=== PATIENT | female | born 1940 | race African-American/Black ===

== ENCOUNTER 2017-01-28 11:15 | Outpatient (CLI) | payer MEDICARE, MEDICAID ==
[~2017-01-28 11:15] MED LIST: ALBUTEROL SULF8.5 GM INH; AZITHROMYCIN250 MG ORAL; PREDNISONE20 MG ORAL; PROMETHAZINE-C118 M1 ORAL; TYLENOL EXTRA500 MG ORAL
[2017-01-28 11:41] LABS: BASOPHILS % (AUTO) 0.4 % (0.0-2.0); LYMPHOCYTES % (AUTO) 42.5 % (20.0-45.0); MEAN CORPUSCULAR HEMOGLOBIN 28.9 PG (27.0-31.0); MEAN CORPUSCULAR HGB CONC 30.1 G/DL (32.0-36.0); MEAN CORPUSCULAR VOLUME 96 FL (80-99); MEAN PLATELET VOLUME 6.9 FL (6.5-10.1); MONOCYTES % (AUTO) 10.2 % (1.0-10.0); NEUTROPHILS % (AUTO) 44.9 % (45.0-75.0); PLATELET COUNT 178 K/UL (150-450); RED BLOOD COUNT 4.34 M/UL (4.20-5.40); RED CELL DISTRIBUTION WIDTH 14.2 % (11.6-14.8); WHITE BLOOD COUNT 4.3 K/UL (4.8-10.8)
[2017-01-28 12:01] LABS: INR 0.9 (0.9-1.1); PROTHROMBIN TIME 9.8 SEC (9.30-11.50)
[2017-01-28 12:07] LABS: ALANINE AMINOTRANSFERASE 62 U/L (12-78); ALBUMIN/GLOBULIN RATIO 0.7 (1.0-2.7); ANION GAP 8 mmol/L (5-15); ASPARTATE AMINO TRANSFERASE 47 U/L (15-37); CALCIUM 8.7 MG/DL (8.5-10.1); CARBON DIOXIDE 30 MMOL/L (21-32); CHLORIDE 106 MMOL/L (98-107); CREATININE 1.1 MG/DL (0.55-1.30); POTASSIUM 4.1 MMOL/L (3.5-5.1); SODIUM 144 MMOL/L (136-145); TOTAL PROTEIN 8.1 G/DL (6.4-8.2)
== END 2017-01-28 13:15 | disposition home or self-care (01) ==
LOC: LAB 11:15
DX: I11.9 Hypertensive heart disease without heart failure (principal); J44.9 Chronic obstructive pulmonary disease, unspecified
CPT/HCPCS: 36415; 80053; 85025; 85610; 85730

== ENCOUNTER 2018-04-04 16:32 | Inpatient (IN) | payer MEDICARE, MEDICAID ==
[~2018-04-04] VITALS: Ht 165.1 cm; Wt 56.7 kg
[2018-04-04 16:52] VITALS: BP 180/94
--- NOTE | 2018-04-04 16:52 | NUR ---
ED Nurse Note: Pt came in due to localized, left side CP and SOB x 2 days. Pt states its painful when she breathes. Pt has hx of COPD and is not compliant with her medications. Pt is AAO x4, ambulatory with SOB at rest. Sats 99 % in room air. Lunsg are tight upon auscultation.
--- NOTE | 2018-04-04 17:00 | NUR ---
ED Nurse Note: Daughter at the bed side.
[2018-04-04] MEDS ORDERED: Solu-MEDROL 125mg Inj IVP ONE (17:15)
[2018-04-04] MEDS ORDERED: Albuterol ud Inhalation HHN ONE ×2 (17:15→20:00)
[2018-04-04] MEDS ORDERED: Ipratropium 0.02% Inh Soln 2.5ml UD HHN ONE ×2 (17:15→20:00)
--- NOTE | 2018-04-04 17:15 | NUR ---
ED Nurse Note: Blood collected and sent.
[2018-04-04 17:27] LABS: BASOPHILS % (AUTO) 0.6 % (0.0-2.0); EOSINOPHILS % (AUTO) 1.1 % (0.0-3.0); HEMATOCRIT 42.4 % (37.0-47.0); HEMOGLOBIN 13.3 G/DL (12.0-16.0); LYMPHOCYTES % (AUTO) 38.5 % (20.0-45.0); MEAN CORPUSCULAR VOLUME 93 FL (80-99); MONOCYTES % (AUTO) 14.8 % (1.0-10.0); NEUTROPHILS % (AUTO) 44.9 % (45.0-75.0); PLATELET COUNT 191 K/UL (150-450); RED BLOOD COUNT 4.58 M/UL (4.20-5.40); RED CELL DISTRIBUTION WIDTH 14.5 % (11.6-14.8); WHITE BLOOD COUNT 4.5 K/UL (4.8-10.8)
--- NOTE | 2018-04-04 17:27 | NUR ---
ED Nurse Note: Radiologist at the bed side for CXR.
--- NOTE | 2018-04-04 17:37 | NUR ---
ED Nurse Note: RT at the bed side for breathing treatment.
[2018-04-04 17:58] LABS: APPEARANCE,URINE CLEAR; BILIRUBIN, URINE NEGATIVE (NEGATIVE); GLUCOSE, URINE (UA) NEGATIVE (NEGATIVE); KETONES,URINE NEGATIVE (NEGATIVE); LEUKOCYTE ESTERASE ,URINE NEGATIVE (NEGATIVE); NITRITE,URINE NEGATIVE (NEGATIVE); PH,URINE 7 (4.5-8.0); PROTEIN,URINE 2+ (NEGATIVE); UROBILINOGEN,URINE NORMAL MG/DL (0.0-1.0)
[2018-04-04 17:59] LABS: COLOR,URINE YELLOW
[2018-04-04 18:03] LABS: ANION GAP 10 mmol/L (5-15); BLOOD UREA NITROGEN 14 mg/dL (7-18); CALCIUM 9.7 MG/DL (8.5-10.1); CARBON DIOXIDE 29 MMOL/L (21-32); CHLORIDE 106 MMOL/L (98-107); CREATININE 0.9 MG/DL (0.55-1.30); POTASSIUM 3.8 MMOL/L (3.5-5.1); SODIUM 145 MMOL/L (136-145)
--- NOTE | 2018-04-04 18:05 | Diagnostic Imaging Report ---
EXAM: XR Chest, 1 View CLINICAL HISTORY: SOB TECHNIQUE: Frontal view of the chest. COMPARISON: No relevant prior studies available. FINDINGS: Lungs: Mild right basilar atelectasis. Pleural space: Unremarkable. No pneumothorax. Heart: Large cardiomediastinal silhouette. Mediastinum: See above. Bones/joints: Hardware in the spine. Vasculature: Large aortic knob. IMPRESSION: Mild right basilar atelectasis.
[2018-04-04 18:17] LABS: ALANINE AMINOTRANSFERASE 75 U/L (12-78); ALBUMIN 3.5 G/DL (3.4-5.0); ALBUMIN/GLOBULIN RATIO 0.8 (1.0-2.7); ALKALINE PHOSPHATASE 277 U/L (46-116); ASPARTATE AMINO TRANSFERASE 50 U/L (15-37); BILIRUBIN,TOTAL 0.4 MG/DL (0.2-1.0); CKMB 0.9 NG/ML (0.0-3.6); CREATINE KINASE 135 U/L (26-308)
--- NOTE | 2018-04-04 18:35 | NUR ---
ED Nurse Note: Dr Melo at the bed side.
[2018-04-04 18:58] VITALS: BP 144/68
--- NOTE | 2018-04-04 18:59 | NUR ---
ED Nurse Note: Sunray and juice provided to pt. Dr Lorie brewer with pt to eat.
[2018-04-04] MEDS ORDERED: Morphine Sulfate 4mg/ml Inj (IV/IM USE ONLY) IVP ONE (19:00)
--- NOTE | 2018-04-04 19:15 | NUR ---
HAND-OFF: Report given to Jessy RUSHING.
--- NOTE | 2018-04-04 19:30 | NUR ---
ED Nurse Note: RECIEVED REPORT FROM AM NURSE TO RESUME CARE, PT IN BED RESTING QUIETLY, PT IS AWAKE, ALERT AND ORIENTED X 4, ON CARDIAC MONITORING, IV SITE PATENT, PT HAS MILD CP AT 2/10 WHEN AMBULATING OR DEEP BREATHING, DENIES NOW, PT WAITING FOR HOSPITAL BED FOR ADMISSION, WILL RESUME CARE ORDERED AND CONTINUE TO CLOSELY MONITOR AND PREPARE FOR ADMIT WHEN BED AVAILABLE.
--- NOTE | 2018-04-04 19:44 | Emergency Room Report ---
History of Present Illness General Chief Complaint: Chest Pain Source: Patient, Medical Record Present Illness HPI 77-year-old female presents ED for evaluation. Complaining of chest pain 2 days. Sharp, left-sided, nonradiating. Worse with deep breaths. Denies any cough fevers chills. States there was some leg swelling initially but not at this time. States increased urination. Denies dysuria. Denies fevers or chills. Denies cough. Notes history of asthma. No other aggravating relieving factors. Denies any other associated symptoms Allergies: Coded Allergies: SETH INHIBITORS (Verified Allergy, Unknown, 03/04/16) Patient History Past Medical History: HTN, asthma Past Surgical History: none Pertinent Family History: none Social History: Denies: smoking, alcohol use, drug use Now: No Immunizations: UTD Reviewed Nursing Documentation: PMH: Agreed; PSxH: Agreed Nursing Documentation-PMH Hx Hypertension: Yes Hx Asthma: Yes Review of Systems All Other Systems: negative except mentioned in HPI Physical Exam Vital Signs Date Time Temp Pulse Resp B/P (MAP) Pulse Ox O2 Delivery O2 Flow Rate FiO2 04/04/18 16:42 98.2 56 18 180/94 93 Room Air 04/04/18 17:36 21 Sp02 EP Interpretation: reviewed, normal General Appearance: no apparent distress, alert, GCS 15, non-toxic Head: normocephalic, atraumatic Eyes: bilateral eye normal inspection, bilateral eye PERRL ENT: hearing grossly normal, normal pharynx, no angioedema, normal voice Neck: full range of motion, supple/symm/no masses Respiratory: decreased breath sounds, speaking full sentences, other - reproducible L anterior chest wall pain Cardiovascular #1: regular rate, rhythm, no edema Cardiovascular #2: 2+ carotid (R), 2+ carotid (L), 2+ radial (R), 2+ radial (L) , 2+ dorsalis pedis (R), 2+ dorsalis pedis (L) Gastrointestinal: normal bowel sounds, non tender, soft, non-distended, no guarding, no rebound Rectal: deferred Genitourinary: normal inspection, no CVA tenderness Musculoskeletal: back normal, gait/station normal, normal range of motion, non- tender Neurologic: alert, oriented x3, responsive, motor strength/tone normal, sensory intact, speech normal Psychiatric: judgement/insight normal, memory normal, mood/affect normal, no suicidal/homicidal ideation Reflexes: 3+ bicep (R), 3+ bicep (L), 3+ tricep (R), 3+ tricep (L), 3+ knee (R) , 3+ knee (L) Skin: normal color, no rash, warm/dry, well hydrated Lymphatic: no adenopathy Medical Decision Making Diagnostic Impression: Primary Impression: ACS (acute coronary syndrome) Additional Impression: COPD (chronic obstructive pulmonary disease) Qualified Codes: J44.9 - Chronic obstructive pulmonary disease, unspecified ER Course Hospital Course 77-year-old F presenting to ED with SOB + CP. h/o COPD Differential diagnoses include: Pneumonia, CHF exacerbation, pneumothorax, fluid overload Clinical course Patient placed on stretcher. On equipment monitor phototypesetting with stable vitals. After initial history and physical, I ordered nebulizer treatments. I ordered labs, IV fluids, EKG, chest x-ray, blood cultures, UA. Labs - no leukocytosis noted, hemoglobin/hematocrit stable, electrolytes okay, troponins negative CXR - some atelectasis in lower R lung base EKG - NSR, no acute ischemic changes interpreted by me States she is still having chest pain and shortness of breath. Consideration for muscular chest pain however given age and risk factors will admit for serial troponins Given antibiotics. given aspirin. Case discussed with Dr. Hassan and he agreed to the patient to his service for further care and support I feel this is a highly complex case requiring extensive working including EKG/ Rhythm strip, Xray/CT/US, Blood/urine lab work, repeat exams while in ED, and administration of strong opiates/narcotics for pain control, admission to hospital or close patient follow up. Diagnosis - COPD, ACS Patient admitted to telemetry in serious condition Labs Test 04/04/18 17:05 04/04/18 17:24 White Blood Count 4.5 K/UL (4.8-10.8) Red Blood Count 4.58 M/UL (4.20-5.40) Hemoglobin 13.3 G/DL (12.0-16.0) Hematocrit 42.4 % (37.0-47.0) Mean Corpuscular Volume 93 FL (80-99) Mean Corpuscular Hemoglobin 29.1 PG (27.0-31.0) Mean Corpuscular Hemoglobin Concent 31.5 G/DL (32.0-36.0) Red Cell Distribution Width 14.5 % (11.6-14.8) Platelet Count 191 K/UL (150-450) Mean Platelet Volume 7.2 FL (6.5-10.1) Neutrophils (%) (Auto) 44.9 % (45.0-75.0) Lymphocytes (%) (Auto) 38.5 % (20.0-45.0) Monocytes (%) (Auto) 14.8 % (1.0-10.0) Eosinophils (%) (Auto) 1.1 % (0.0-3.0) Basophils (%) (Auto) 0.6 % (0.0-2.0) Sodium Level 145 MMOL/L (136-145) Potassium Level 3.8 MMOL/L (3.5-5.1) Chloride Level 106 MMOL/L (98-107) Carbon Dioxide Level 29 MMOL/L (21-32) Anion Gap 10 mmol/L (5-15) Blood Urea Nitrogen 14 mg/dL (7-18) Creatinine 0.9 MG/DL (0.55-1.30) Estimat Glomerular Filtration Rate mL/min (>60) Glucose Level 89 MG/DL (74-106) Calcium Level 9.7 MG/DL (8.5-10.1) Total Bilirubin 0.4 MG/DL (0.2-1.0) Aspartate Amino Transf (AST/SGOT) 50 U/L (15-37) Alanine Aminotransferase (ALT/SGPT) 75 U/L (12-78) Alkaline Phosphatase 277 U/L (46-116) Total Creatine Kinase 135 U/L (26-308) Creatine Kinase MB 0.9 NG/ML (0.0-3.6) Creatine Kinase MB Relative Index 0.6 Troponin I 0.011 ng/mL (0.000-0.056) Pro-B-Type Natriuretic Peptide 764 pg/mL (0-125) Total Protein 8.1 G/DL (6.4-8.2) Albumin 3.5 G/DL (3.4-5.0) Globulin 4.6 g/dL Albumin/Globulin Ratio 0.8 (1.0-2.7) Urine Color Yellow Urine Appearance Clear Urine pH 7 (4.5-8.0) Urine Specific [place] 1.010 (1.005-1.035) Urine Protein 2+ (NEGATIVE) Urine Glucose (UA) Negative (NEGATIVE) Urine Ketones Negative (NEGATIVE) Urine Blood Negative (NEGATIVE) Urine Nitrite Negative (NEGATIVE) Urine Bilirubin Negative (NEGATIVE) Urine Urobilinogen Normal MG/DL (0.0-1.0) Urine Leukocyte Esterase Negative (NEGATIVE) Urine RBC 0-2 /HPF (0 - 2) Urine WBC 0-2 /HPF (0 - 2) Urine Squamous Epithelial Cells Few /LPF (NONE/OCC) Urine Amorphous Sediment Few /LPF (NONE) Urine Bacteria Few /HPF (NONE) EKG Diagnostic Results Rate: normal Rhythm: NSR ST Segments: no acute changes ASA given to the pt in ED: No Rhythm Strip Diag. Results EP Interpretation: yes Rhythm: NSR, no PVC's, no ectopy Chest X-Ray Diagnostic Results Chest X-Ray Diagnostic Results : Chest X-Ray Ordered: Yes # of Views/Limited/Complete: 1 View Indication: Chest Pain EP Interpretation: Yes Interpretation: no effusion, no pneumothorax, other - R basilar atelectasis Impression: Other - R basilar atelectasis Electronically Signed by: Electronically signed by Yasir Melo MD Last Vital Signs Date Time Temp Pulse Resp B/P (MAP) Pulse Ox O2 Delivery O2 Flow Rate FiO2 04/04/18 18:58 98.6 81 25 144/68 97 Room Air 04/04/18 17:56 21 Status: improved Disposition: ADMITTED INPATIENT Condition: Serious Referrals: NOT CHOSEN IPA/,REFERRING (PCP) Yasir Melo MD Apr 04, 2018 19:44
[2018-04-04 20:15] VITALS: BP 141/57
[2018-04-04] MEDS ORDERED: Albuterol/Ipratropium 3ml neb HHN PRN (20:15)
[2018-04-04] MEDS ORDERED: Milk of Magnesia 30ml Ud ORAL PRN (20:15)
[2018-04-04] MEDS ORDERED: Promethazine/Codeine 5ml UD ORAL PRN (20:15)
[2018-04-04 21:00] VITALS: BP 144/73
--- NOTE | 2018-04-04 21:35 | NUR ---
ED Nurse Note: PT HAS ROOM FOR ADMISSION, REPORT CALLED TO FLOOR NURSE СЕРГЕЙ GAN ON UNIT, PT TAKEN TO FLOOR VIA GURNEY AND ACLS PROTOCOLS, PT BELONGINGS LIST COMPLETED, IV SITE PATENT, ANTIBIOTIC COMPLETED, NO S/S OF ADVERSE REACTION NOTED, NAD NOTED DURING PT TRANSPORT TO FLOOR.
[2018-04-04 21:40] VITALS: BP 151/74
--- NOTE | 2018-04-04 21:40 | NUR ---
NURSE NOTES: Received pt. from ED via kaveh. Pt. transferred to bed without any incident. Received report from СЕРГЕЙ Molina. Pt. is A/O x4. [place] pt. to unit, room, and hospital policies. cryptological technician is placed, IV site intact, asymptomatic, and patent. Skin is intact; no apparent wounds. Bed is in the lowest position and locked, call light within reach. No chest pain, SOB or acute distress noted at this time. Received admission orders from Dr. Hassan. Will carry out.
[2018-04-04] MEDS: Solu-MEDROL 40mg Inj IVP SCH (22:15)
[2018-04-04] MEDS: cefTRIAXone 1 GM in D5W 55 ML IVPB SCH (22:15)
[2018-04-04] MEDS: Heparin 5000 units/ml inj SUBQ SCH (22:17)
[2018-04-04] MEDS: Acetaminophen 500mg (ES) tab ORAL PRN (23:41)
[2018-04-05] VITALS (7 sets, daily range): BP systolic 111–172; BP diastolic 81–98
[2018-04-05] MEDS: Solu-MEDROL 40mg Inj IVP SCH (05:33)
[2018-04-05] MEDS: Acetaminophen 500mg (ES) tab ORAL PRN ×2 (07:01→14:46)
--- NOTE | 2018-04-05 07:12 | NUR ---
NURSE NOTES: Received report from СЕРГЕЙ Rodriguez. Patient is in stable condition. No acute distress/SOB. Patient denies any pain/discomfort. Will continue plan of care.
--- NOTE | 2018-04-05 07:46 | NUR ---
HAND-OFF: Report given to СЕРГЕЙ Michael.
[2018-04-05] MEDS: cefTRIAXone 1 GM in D5W 55 ML IVPB SCH (08:48)
[2018-04-05] MEDS: Azithromycin 250mg tab ORAL SCH (08:49)
[2018-04-05] MEDS: Heparin 5000 units/ml inj SUBQ SCH ×2 (08:49→21:03)
[2018-04-05] MEDS ORDERED: OXTELLAR XR150 MG ORAL (09:15)
[2018-04-05] MEDS ORDERED: VENTOLIN HFA18 GM INH (09:15)
[2018-04-05] MEDS ORDERED: DELTASONE20 MG PO (09:15)
[2018-04-05] MEDS ORDERED: NORVASC10 MG ORAL (09:15)
[2018-04-05] MEDS ORDERED: OMEPRAZOLE20 M2 ORAL (09:15)
[2018-04-05] MEDS ORDERED: ZANAFLEX4 M1 ORAL (09:15)
--- NOTE | 2018-04-05 10:00 | History and Physical Report ---
DATE OF ADMISSION: 04/04/2018 CHIEF COMPLAINT: COPD exacerbation and chest pain. HISTORY OF PRESENT ILLNESS: The patient is a 77-year-old female. She has a history of hypertensive heart disease. She has a 21-mcpl-cekq history of smoking and she presented with complaints of shortness of breath, cough, and chest pain. According to the patient, she was well until one to two days prior to admission when she developed some wheezing, shortness of breath, cough, and chest pain. Chest pain was mostly with inspiration. Denies any fevers or chills. She had no phlegm. On evaluation in the emergency room, she was diagnosed with COPD exacerbation. She was given a dose of steroids. She is now admitted for further evaluation and care. PAST MEDICAL HISTORY: As above. PAST SURGICAL HISTORY: Includes hip surgery. CURRENT MEDICATIONS: Reconciled and reviewed. ALLERGIES: Include SETH inhibitors. FAMILY HISTORY: Noncontributory. SOCIAL HISTORY: Significant for 36-gamo-skld history of smoking. The patient states she quit earlier this month. REVIEW OF SYSTEMS: GENERAL: No fevers or chills. HEENT: No headache or visual changes. CARDIOPULMONARY: Positive chest pain. Positive shortness of breath and wheezing. GASTROINTESTINAL: No nausea or vomiting. GENITOURINARY: No urgency or frequency. MUSCULOSKELETAL: No joint pain or swelling. NEUROLOGIC: No evidence of seizures. PHYSICAL EXAMINATION: VITAL SIGNS: Temperature 98 degrees, pulse 58, respirations 20, and blood pressure 151/84. GENERAL: The patient is well developed, in no apparent distress. HEART: Regular rate and rhythm. LUNGS: Significant for scattered wheezes. ABDOMEN: Soft, nontender, and nondistended. EXTREMITIES: Without clubbing, cyanosis, or edema. LABORATORY AND IMAGING DATA: UA was clear. White count 4 and hemoglobin 13. Sodium 145 and potassium 3.8. Troponin was 0.011. X-ray showed right basal atelectasis. ASSESSMENT: This is a pleasant female with complaints of shortness of breath and chest pain suspect secondary to chronic obstructive pulmonary disease exacerbation. PROBLEMS LIST: 1. COPD exacerbation. 2. Likely noncardiac chest pain. 3. History of hypertension. PLAN: 1. Intravenous steroids. 2. Respiratory treatments. 3. Pulmonary consultation. 4. Antibiotics for bronchitis. 5. Check venous duplex. 6. DVT stress and ulcer prophylaxis. Ej Hassan M.D. DR: TAMIR JOB#: [id number] CC:
--- NOTE | 2018-04-05 11:08 | Cardiology Report ---
APPROVED REPORT EKG Measurement Heart [id number] Sinus bradycardia Possible Anterior infarct, age undetermined Abnormal ECG
[2018-04-05] MEDS ORDERED: Albuterol/Ipratropium 3ml neb HHN PRN (11:15)
--- NOTE | 2018-04-05 12:44 | NUR ---
NURSE NOTES: Notified Dr. Hassan that pt's BP. New order carried out.
[2018-04-05] MEDS: HydrALAZINE 50mg tab ORAL SCH ×2 (13:09→22:00)
--- NOTE | 2018-04-05 15:02 | NUR ---
NURSE NOTES: Patient still complains of headache 09/16. Notified Dr. ledezma pain med order carried out. Will continue plan of care.
[2018-04-05] MEDS ORDERED: HYDROcodone/Acetamin 10/325 tab ORAL PRN (15:15)
--- NOTE | 2018-04-05 15:34 | NUR ---
CASE MANAGEMENT: REVIEW 77/F PRESENTED TO ED FROM HOME CC: CHEST PAIN X2 DAYS SI: DYSPNEA . CHEST PAIN . COPD EXACERBATION T 98.2 HR 51 RR 25 BP 180/94 SAT 93% ROOM AIR TROPONIN I 0.011 BNP 764 IS: SOLU MEDROL IV X1 ATROVENT HHN X1 ALBUTEROL HHN X1 MORPHINE IV X1 ASA PO X1 INTERQUAL CRITERIA MET: PATIENT ADMITTED TO TELEMETRY UNIT 04/04/2018 DCP: PATIENT IS FROM HOME
--- NOTE | 2018-04-05 17:39 | NUR ---
NURSE NOTES: Patient still complains of headache 09/16. Notified Dr. Person order carried out. Will continue plan of care.
--- NOTE | 2018-04-05 19:29 | NUR ---
HAND-OFF: Report given to СЕРГЕЙ Kimble. Patient is in stable condition. No acute distress/SOB noted. Patient denies any pain/discomfort. Endorsed plan of care.
--- NOTE | 2018-04-05 20:11 | NUR ---
NURSE NOTES: recvd pt. Pt is laying in bed comfortably. Pt states headache has resolved so denies pain. No c/o dyspnea or chest pain. Pt is AOX4. Pt is on room air with no sign of sob or resp distress. BLE are swollen, elevated on pillows. IV site is c/d/i and saline locked. Bed alarm is on, will continue with plan of care.
[2018-04-05] MEDS ORDERED: Solu-MEDROL 40mg Inj IVP SCH (21:00)
[2018-04-06] VITALS: BP 151/75
[2018-04-06 04:00] VITALS: BP 136/70
[2018-04-06] MEDS: HydrALAZINE 50mg tab ORAL SCH ×3 (05:41→22:35)
--- NOTE | 2018-04-06 07:35 | NUR ---
NURSE NOTES: Received report from Shyanne RUSHING. Pt is awake, alert, oriented x4. On room air with no respiratory distress. Reports relief of headache after being given Percocet. IV access on left AC #20G, saline lock, patent/intact. Bedside commode setup. Skin is intact. Call light is within easy reach, bed in lowest position, two side rails up, brakes engaged.
--- NOTE | 2018-04-06 07:56 | General Progress Note ---
Assessment/Plan Problem List: (1) Acute bronchitis ICD Codes: J20.9 - Acute bronchitis,unspecified SNOMED: 36598134 (2) Angioedema ICD Codes: T78.3XXA - Angioneurotic edema, initial encounter SNOMED: 83310463 (3) COPD (chronic obstructive pulmonary disease) ICD Codes: J44.9 - Chronic obstructive pulmonary disease, unspecified SNOMED: 61421757 Qualifiers: Qualified Codes: J44.9 - Chronic obstructive pulmonary disease, unspecified (4) ACS (acute coronary syndrome) ICD Codes: I24.9 - Acute ischemic heart disease, unspecified SNOMED: 560894042 Status: stable, progressing Assessment/Plan decreased steroids resp rx iv abx mobilize pain rx dc planning tomorrow Subjective ROS Limited/Unobtainable: No Constitutional: Reports: malaise, weakness HEENT: Reports: no symptoms Cardiovascular: Reports: no symptoms Respiratory: Reports: cough, shortness of breath Gastrointestinal/Abdominal: Reports: no symptoms Genitourinary: Reports: no symptoms Neurologic/Psychiatric: Reports: no symptoms Endocrine: Reports: no symptoms Hematologic/Lymphatic: Reports: no symptoms Allergies: Coded Allergies: SETH INHIBITORS (Verified Allergy, Unknown, 03/04/16) All Systems: reviewed and negative except above Subjective c/o headaches.relieved with percocet. no fever or chills. decreased sob Objective Last 24 Hour Vital Signs Date Time Temp Pulse Resp B/P (MAP) Pulse Ox O2 Delivery O2 Flow Rate FiO2 04/06/18 05:41 136/70 04/06/18 05:13 98.3 04/06/18 04:00 98.5 53 18 136/70 (92) 96 04/06/18 04:00 50 04/06/18 00:00 98.3 53 18 151/75 (100) 98 04/06/18 00:00 51 04/05/18 22:02 99.1 04/05/18 21:00 Room Air 04/05/18 20:00 73 04/05/18 20:00 99.1 66 19 111/81 (91) 96 04/05/18 16:00 98.3 70 18 154/98 (116) 97 04/05/18 16:00 107 04/05/18 14:45 98.6 72 18 142/81 (101) 97 04/05/18 13:09 150/65 04/05/18 12:13 59 20 98 Room Air 21 04/05/18 12:00 98.6 55 18 172/91 (118) 97 04/05/18 12:00 56 04/05/18 09:44 54 169/97 04/05/18 09:00 Room Air 04/05/18 08:00 98.1 54 18 169/97 (121) 95 04/05/18 08:00 54 Intake and Output 04/05/18 04/06/18 19:00 07:00 Intake Total 360 ml 120 ml Balance 360 ml 120 ml Intake Oral 360 ml Other 120 ml # Voids 2 1 # Bowel Movements 1 1 Height (Feet): 5 Height (Inches): 5.00 Weight (Pounds): 125 General Appearance: WD/WN, alert Neck: supple, normal inspection Cardiovascular: normal peripheral pulses, normal rate, regular rhythm Respiratory/Chest: chest wall non-tender, lungs clear, normal breath sounds, no respiratory distress Abdomen: normal bowel sounds, non tender, soft, no organomegaly Edema: no edema noted Arm (L), no edema noted Arm (R), no edema noted Leg (L), no edema noted Leg (R), no edema noted Pedal (L), no edema noted Pedal (R), no edema noted Generalized Ej Hassan MD Apr 06, 2018 07:56
[2018-04-06 08:00] VITALS: BP 137/72
[2018-04-06] MEDS: Azithromycin 250mg tab ORAL SCH (08:31)
[2018-04-06] MEDS: Solu-MEDROL 40mg Inj IVP SCH (08:31)
[2018-04-06] MEDS: Heparin 5000 units/ml inj SUBQ SCH ×2 (08:34→20:30)
[2018-04-06] MEDS: cefTRIAXone 1 GM in D5W 55 ML IVPB SCH (08:36)
[2018-04-06 12:00] VITALS: BP 139/88
--- NOTE | 2018-04-06 14:12 | Diagnostic Imaging Report ---
APPROVED REPORT CPT Code: 18987 Present Symptoms Comments: Chest pain BILATERAL: Imaging reveals a patent deep venous system bilaterally. There is no evidence of thrombus within the femoral, popliteal or tibial segments. The greater saphenous veins are also within normal limits. Doppler indicates normal spontaneous flow within these segments.
[2018-04-06 16:00] VITALS: BP 134/76
--- NOTE | 2018-04-06 19:15 | NUR ---
HAND-OFF: Report given to Shyanne RUSHING. Pt is resting in bed in stable condition. Endorsed plan of care.
[2018-04-06 20:00] VITALS: BP 124/81
--- NOTE | 2018-04-06 20:16 | NUR ---
NURSE NOTES: recvd pt. Pt is awake and lying in bed AOX4. Pt states headache has resolved so denies pain. No c/o dyspnea or chest pain. Pt is on room air with no sign of sob or resp distress.. IV site is c/d/i and saline locked. Bed alarm is on, will continue with plan of care.
[2018-04-07] VITALS: BP 125/77
--- NOTE | 2018-04-07 02:15 | Consultation ---
DATE OF CONSULTATION: 04/06/2018 CARDIOLOGY CONSULTATION CONSULTING PHYSICIAN: Moe Leblanc M.D. REQUESTING PHYSICIAN: Ej Hassan M.D. REASON FOR CONSULTATION: Chest pain in the setting of bronchospastic lung disease. HISTORY OF PRESENT ILLNESS: This 77-year-old female has a history of hypertensive heart disease and COPD with heavy active smoking history. She presented to the hospital yesterday with chest pain, cough, and congestion of two days duration. She had active wheezing. She noted her pain associated with cough and inspiration. The patient has been started on intravenous steroids and inhaled bronchodilators with some improvement over the past day. Her chest pain symptoms have not changed. Her initial troponin was 0.011. PAST MEDICAL HISTORY: Osteoporosis, osteoarthritis, prior hip surgery, hypertension, and COPD. ALLERGIES: Include SETH inhibitors. FAMILY HISTORY: Noncontributory. SOCIAL HISTORY: No alcohol or substance abuse. A 60+ pack year smoker, actively at this time although she notes that she has not really smoked this month. REVIEW OF SYSTEMS: Her outpatient echocardiogram revealed normal ejection fraction with minimally elevated PA systolic pressures. There is no history of flow-limiting coronary artery disease in the past. There is no history of atrial arrhythmias. She does have a history of sinus bradycardia, it has been asymptomatic. There is no history of blood clots in the legs, diabetes, or thyroid disorder. PHYSICAL EXAMINATION: VITAL SIGNS: T-max 99.8, blood pressure 124/81, heart rate 75, respiratory rate 20, and oxygen saturation 95% on room air. HEENT: Conjunctivae pink. Oropharynx clear. No thrush. NECK: Supple. LUNGS: Diminished breath sounds. No wheezing. Few rhonchi. HEART: Regular rhythm. Slow rate. Normal S1 and S2. ABDOMEN: Soft. EXTREMITIES: No edema. NEUROLOGIC: Nonfocal. LABORATORY DATA: EKG sinus bradycardia, no acute ST-T wave abnormalities. Chest x-ray with right atelectasis, no acute process in her single-view film. IMPRESSION: 1. Chest pain appears pleuritic. 2. COPD exacerbation, improving. 3. Acute bronchitis. 4. Atelectasis. 5. Possible pneumonia. 6. History of hypertension. 7. Asymptomatic sinus bradycardia. PLAN: Recheck labs, chest x-ray, steroid taper, bronchodilators, and long-term anti-platelet therapy. Moe Leblanc M.D. DR: KAMALA JOB#: [id number] CC:
[2018-04-07 04:00] VITALS: BP 120/72
[2018-04-07] MEDS: HydrALAZINE 50mg tab ORAL SCH ×3 (06:00→21:32)
--- NOTE | 2018-04-07 07:10 | NUR ---
NURSE NOTES: Received report from Shyanne RUSHING. Pt is awake, alert, oriented x4, laying in bed, watching TV. Denies pain, on room air with no respiratory distress. IV access on left AC #20G, saline lock, patent/intact. Skin is intact. Pt is ambulatory with steady gait. Call light is placed within easy reach, bed in lowest position, two side rails up, brakes engaged. Labs pending for this morning, chest xray to be done today. Will continue with plan of care per MD orders and protocol.
[2018-04-07 08:00] VITALS: BP_SYST 130; BP_SYST 146; BP_DIAS 71; BP_DIAS 78
[2018-04-07 08:34] LABS: BASOPHILS % (AUTO) 0.5 % (0.0-2.0); EOSINOPHILS % (AUTO) 0.1 % (0.0-3.0); HEMATOCRIT 45.9 % (37.0-47.0); HEMOGLOBIN 14.4 G/DL (12.0-16.0); LYMPHOCYTES % (AUTO) 41.3 % (20.0-45.0); MEAN CORPUSCULAR VOLUME 93 FL (80-99); MONOCYTES % (AUTO) 6.1 % (1.0-10.0); NEUTROPHILS % (AUTO) 52.1 % (45.0-75.0); PLATELET COUNT 235 K/UL (150-450); RED BLOOD COUNT 4.95 M/UL (4.20-5.40); RED CELL DISTRIBUTION WIDTH 15.3 % (11.6-14.8)
[2018-04-07] MEDS: Aspirin EC 81mg tab ORAL SCH (08:52)
[2018-04-07] MEDS: Solu-MEDROL 40mg Inj IVP SCH (08:52)
[2018-04-07] MEDS: Azithromycin 250mg tab ORAL SCH (08:52)
[2018-04-07] MEDS: Heparin 5000 units/ml inj SUBQ SCH ×2 (08:55→21:36)
[2018-04-07] MEDS: cefTRIAXone 1 GM in D5W 55 ML IVPB SCH (08:56)
[2018-04-07 09:31] LABS: ALANINE AMINOTRANSFERASE 44 U/L (12-78); ALBUMIN 3.6 G/DL (3.4-5.0); ALBUMIN/GLOBULIN RATIO 0.8 (1.0-2.7); ALKALINE PHOSPHATASE 217 U/L (46-116); ANION GAP 7 mmol/L (5-15); ASPARTATE AMINO TRANSFERASE 20 U/L (15-37); BILIRUBIN,TOTAL 0.5 MG/DL (0.2-1.0); BLOOD UREA NITROGEN 28 mg/dL (7-18); CALCIUM 10.1 MG/DL (8.5-10.1); CARBON DIOXIDE 31 MMOL/L (21-32); CHLORIDE 106 MMOL/L (98-107); CREATININE 1.2 MG/DL (0.55-1.30); POTASSIUM 4.4 MMOL/L (3.5-5.1); SODIUM 144 MMOL/L (136-145)
--- NOTE | 2018-04-07 10:11 | General Progress Note ---
Assessment/Plan Problem List: (1) Acute bronchitis ICD Codes: J20.9 - Acute bronchitis,unspecified SNOMED: 81984967 (2) Angioedema ICD Codes: T78.3XXA - Angioneurotic edema, initial encounter SNOMED: 48651143 (3) COPD (chronic obstructive pulmonary disease) ICD Codes: J44.9 - Chronic obstructive pulmonary disease, unspecified SNOMED: 15491216 Qualifiers: Qualified Codes: J44.9 - Chronic obstructive pulmonary disease, unspecified (4) ACS (acute coronary syndrome) ICD Codes: I24.9 - Acute ischemic heart disease, unspecified SNOMED: 735777486 Status: stable Assessment/Plan decreased steroids resp rx iv abx mobilize pain rx antiplt rx cards follow up dc planning if ok with cards Subjective ROS Limited/Unobtainable: No Constitutional: Reports: malaise, weakness HEENT: Reports: no symptoms Cardiovascular: Reports: chest pain Respiratory: Reports: cough Gastrointestinal/Abdominal: Reports: no symptoms Genitourinary: Reports: no symptoms Neurologic/Psychiatric: Reports: no symptoms Endocrine: Reports: no symptoms Hematologic/Lymphatic: Reports: no symptoms Allergies: Coded Allergies: SETH INHIBITORS (Verified Allergy, Unknown, 03/04/16) All Systems: reviewed and negative except above Subjective no new complaints. sob/chest pain better. no fevers or chills. no cough echo noted- ?anterior mi Objective Last 24 Hour Vital Signs Date Time Temp Pulse Resp B/P (MAP) Pulse Ox O2 Delivery O2 Flow Rate FiO2 04/07/18 09:23 98.3 04/07/18 08:53 60 146/71 04/07/18 06:00 120/72 04/07/18 04:00 98.3 59 20 120/72 (88) 94 04/07/18 04:00 58 04/07/18 00:00 61 04/07/18 00:00 99.0 67 20 125/77 (93) 97 04/06/18 22:35 124/81 04/06/18 21:28 97.3 04/06/18 21:00 Room Air 04/06/18 20:00 99.8 75 20 124/81 (95) 95 04/06/18 20:00 64 04/06/18 16:00 98.3 69 18 134/76 (95) 96 04/06/18 16:00 59 04/06/18 14:17 139/88 04/06/18 12:00 58 04/06/18 12:00 98.4 65 18 139/88 (105) 97 Intake and Output 04/06/18 04/07/18 19:00 07:00 Intake Total 800 ml Balance 800 ml Intake Oral 800 ml # Voids 3 1 # Bowel Movements 1 1 Laboratory Tests 04/07/18 07:09: White Blood Count 9.0, Red Blood Count 4.95, Hemoglobin 14.4, Hematocrit 45.9, Mean Corpuscular Volume 93, Mean Corpuscular Hemoglobin 29.1, Mean Corpuscular Hemoglobin Concent 31.3L, Red Cell Distribution Width 15.3H, Platelet Count 235 , Mean Platelet Volume 7.3, Neutrophils (%) (Auto) 52.1, Lymphocytes (%) (Auto) 41.3, Monocytes (%) (Auto) 6.1, Eosinophils (%) (Auto) 0.1, Basophils (%) (Auto ) 0.5, Sodium Level 144, Potassium Level 4.4, Chloride Level 106, Carbon Dioxide Level 31, Anion Gap 7, Blood Urea Nitrogen 28H, Creatinine 1.2, Estimat Glomerular Filtration Rate , Glucose Level 76, Calcium Level 10.1, Magnesium Level 2.2, Total Bilirubin 0.5, Aspartate Amino Transf (AST/SGOT) 20, Alanine Aminotransferase (ALT/SGPT) 44, Alkaline Phosphatase 217H, Troponin I 0.009, Pro -B-Type Natriuretic Peptide 185H, Total Protein 8.4H, Albumin 3.6, Globulin 4.8 , Albumin/Globulin Ratio 0.8L Height (Feet): 5 Height (Inches): 5.00 Weight (Pounds): 125 Objective General Appearance: WD/WN, alert Neck: supple, normal inspection Cardiovascular: normal peripheral pulses, normal rate, regular rhythm Respiratory/Chest: chest wall non-tender, lungs clear, normal breath sounds, no respiratory distress Abdomen: normal bowel sounds, non tender, soft, no organomegaly Edema: no edema noted Arm (L), no edema noted Arm (R), no edema noted Leg (L), no edema noted Leg (R), no edema noted Pedal (L), no edema noted Pedal (R), no edema noted Generalized Ej Hassan MD Apr 07, 2018 10:11
[2018-04-07 12:00] VITALS: BP 130/78
--- NOTE | 2018-04-07 15:05 | Diagnostic Imaging Report ---
Indication: Shortness of breath Technique: One view of the chest Comparison: And 27/08/2018 Findings: There is atelectasis at the left lung base. The lungs and pleural spaces are otherwise clear. The heart is upper limits normal in size. The aorta is ectatic and markedly tortuous. Surgical hardware is seen in the lower thoracic and upper lumbar spine. Impression: The basilar atelectasis No acute process otherwise Cardiomegaly
[2018-04-07 16:00] VITALS: BP 132/77
[2018-04-07 20:00] VITALS: BP 144/73
--- NOTE | 2018-04-07 20:19 | NUR ---
HAND-OFF: Report given to Brittany RUSHING. Pt is asleep in bed in stable condition. Endorsed plan of care.
--- NOTE | 2018-04-07 20:25 | NUR ---
NURSE NOTES: Received report from СЕРГЕЙ Wodo. Patient awake, alert and verbally responsive. No SOB, no acute distress, denies any chest pain nor discomfort at this time. IV site on R AC #20, patent and intact. Bed at lowest position, instructed to press call light if assistance needed, verbalized understanding. Will continue plan of care.
[2018-04-08] VITALS: BP 125/67
--- NOTE | 2018-04-08 00:45 | Progress Note ---
DATE: 04/07/2018 CARDIOLOGY PROGRESS NOTE SUBJECTIVE: The patient is with less shortness of breath. Chest pain only with cough and deep inspiration. No fevers or chills. Repeat chest x-ray reviewed, still clear with mild atelectasis. Repeat troponin is remaining negative. PHYSICAL EXAMINATION: VITAL SIGNS: Blood pressure 146/71, pulse 60, and respiratory rate 20. LUNGS: Diminished breath sounds. HEART: Regular rhythm and rate. Normal S1 and S2. ABDOMEN: Soft. EXTREMITIES: No edema. IMPRESSION: 1. Pleuritic chest pain. 2. Chronic obstructive pulmonary disease exacerbation. 3. Paroxysmal bronchospasm. 4. Pseudoinfarct pattern on EKG. 5. Acute bronchitis. 6. History of angioedema. PLAN: 1. Steroid taper. 2. Inhaled bronchodilators. 3. No additional cardiovascular workup planned at this time. 4. Continue anti-platelet therapy. 5. Outpatient stress test to be considered. 6. Transition from IV to oral antibiotics. 7. Discharge plan. Moe Leblanc M.D. DR: FRANCHESCA JOB#: [id number] CC:
[2018-04-08 04:00] VITALS: BP 143/69
[2018-04-08] MEDS: HydrALAZINE 50mg tab ORAL SCH (05:33)
--- NOTE | 2018-04-08 07:18 | NUR ---
HAND-OFF: Report given to СЕРГЕЙ Bobo. Endorsed plan of care.
--- NOTE | 2018-04-08 07:42 | NUR ---
NURSE NOTES: pt awake alert, no distress. no c/o pain. call light within reach. will monitor.
[2018-04-08 08:00] VITALS: BP 128/74
[2018-04-08] MEDS: Azithromycin 250mg tab ORAL SCH (08:09)
[2018-04-08] MEDS: Solu-MEDROL 40mg Inj IVP SCH (08:09)
[2018-04-08 08:10] VITALS: BP 128/74
[2018-04-08] MEDS: Aspirin EC 81mg tab ORAL SCH (08:10)
[2018-04-08] MEDS: Heparin 5000 units/ml inj SUBQ SCH (08:14)
[2018-04-08] MEDS: cefTRIAXone 1 GM in D5W 55 ML IVPB SCH (08:19)
--- NOTE | 2018-04-08 11:35 | NUR ---
NURSE NOTES: pt left in stable condition, arm band removed, iv removed, no bleeding, all belongings with the pt. pt picked up by graddaughter.
--- NOTE | 2018-04-08 11:37 | NUR ---
NURSE NOTES: rx meds given to the pt, dc instructions given with verbalized understanding.
--- NOTE | 2018-04-08 21:00 | Discharge Summary ---
DATE OF ADMISSION: 04/04/2018 DATE OF DISCHARGE: 04/08/2018 ADMISSION DIAGNOSES: Shortness of breath, COPD exacerbation, possible pneumonia/bronchitis, history of chronic pain. DISCHARGE DIAGNOSES: Shortness of breath, COPD exacerbation, possible pneumonia/bronchitis, history of chronic pain. BRIEF HISTORY AND HOSPITAL COURSE: The patient was admitted with complaints of shortness of breath secondary to COPD exacerbation. She was treated initially for pneumonia and later for bronchitis. She received intravenous steroids. Shortness of breath improved. She did have an echo that showed some hypokinesis. Results were discussed with the patient. She was agreeable to following up with cylinder machine operator as an outpatient. She was seen by Cardiology while in-house and no further inpatient workup was recommended at that time. The patient had been instructed to return for any worsening chest pain, shortness of breath, fevers, or chills. DISCHARGE MEDICATIONS: Please see discharge medication list for discharge medications. DIET: Cardiac. ACTIVITY: Ad-coy. FOLLOWUP: The patient is to follow up in the office with her PMD in 1-2 weeks. Ej Hassan M.D. DR: Michel JOB#: [id number] CC:
--- NOTE | 2018-04-08 22:45 | Progress Note ---
CARDIOLOGY PROGRESS NOTE DATE: 04/08/2018 SUBJECTIVE: The patient feels better. Less shortness of breath. No chest pain. OBJECTIVE: VITAL SIGNS: Blood pressure 128/74, pulse 53, and respirations 20. Heart rate ranging from 53 to 81. Monitored sinus and sinus bradycardia. LUNGS: Diminished breath sounds. No wheezing. HEART: Regular rhythm and rate. Normal S1, S2. ABDOMEN: Soft. EXTREMITIES: No edema. DIAGNOSTIC DATA: Venous duplex was negative for DVT. IMPRESSION: 1. Chronic obstructive pulmonary disease exacerbation. 2. Pleuritic chest pain. 3. Hypertensive heart disease. 4. Asymptomatic sinus bradycardia. 5. Pseudoinfarct EKG pattern. PLAN: 1. Complete steroid taper as outpatient. 2. Continue bronchodilators by inhalation as needed. 3. Continue current anti-platelet and cardiovascular regimen. 4. We will schedule outpatient stress test once pulmonary parameters are optimized to baseline. Moe Leblanc M.D. DR: CESAR JOB#: [id number] CC:
== END 2018-04-08 11:30 | disposition home or self-care (01) | DRG 190 ==
LOC: EMR 17:19 → EDBEDREQ 19:03 → 2E 19:30 → EDBEDREQ 19:49 → 2E 04-06 22:38
DX: J44.0 Chronic obstructive pulmonary disease with (acute) lower respiratory infection (principal); J18.9 Pneumonia, unspecified organism; J98.11 Atelectasis; J44.1 Chronic obstructive pulmonary disease with (acute) exacerbation; I10 Essential (primary) hypertension; Z87.891 Personal history of nicotine dependence; G89.29 Other chronic pain; M81.0 Age-related osteoporosis without current pathological fracture; I11.9 Hypertensive heart disease without heart failure; M19.90 Unspecified osteoarthritis, unspecified site; F17.200 Nicotine dependence, unspecified, uncomplicated; J20.9 Acute bronchitis, unspecified; R00.1 Bradycardia, unspecified; Z88.8 Allergy status to other drugs, medicaments and biological substances
CPT/HCPCS: 36415; 71045; 71046; 80053; 81003; 82550; 82553; 82962; 83735; 83880; 84484; 85025; 93005; 93970; 94640; 94664; 96365; 96368; 96375; 99285; J7620

== ENCOUNTER 2018-04-17 11:31 | Inpatient (IN) | payer MEDICARE, MEDICAID ==
[~2018-04-17] VITALS: Ht 162.6 cm; Wt 61.2 kg
[~2018-04-17 11:31] MED LIST changes: +DELTASONE20 MG PO; +NORVASC10 MG ORAL; +OMEPRAZOLE20 M2 ORAL; +OXTELLAR XR150 MG ORAL; +VENTOLIN HFA18 GM INH; +ZANAFLEX4 M1 ORAL
[2018-04-17] MEDS ORDERED: PERCOCET 5-3251 EACH ORAL (11:40)
--- NOTE | 2018-04-17 11:52 | NUR ---
ED Nurse Note: patient was brought by daughter from home, complaining of headache, generalized weakness, flue like symptoms, dyspnea, SOB. Pt. apear anxious, resstless, crying, per patient's daughter she had cold symptoms 2 weeks ago and keep feeling weak and sik. Patient's breathing is normal, pt. is on front desk host, AAO x 4, skin is dry and intact.
[2018-04-17] MEDS ORDERED: Aspirin Baby 81mg ORAL ONE (12:00)
[2018-04-17] MEDS ORDERED: Morphine Sulfate 4mg/ml Inj (IV/IM USE ONLY) IVP ONE (12:00)
[2018-04-17] MEDS ORDERED: LORazepam Inj 2mg/ml 1ml IV ONE (12:00)
--- NOTE | 2018-04-17 12:05 | NUR ---
ED Nurse Note: patient was taken for ultrasound, no s/s of acute disstres
[2018-04-17 12:18] VITALS: BP 141/91
[2018-04-17 12:24] LABS: BASOPHILS % (AUTO) 0.6 % (0.0-2.0); EOSINOPHILS % (AUTO) 0.4 % (0.0-3.0); HEMATOCRIT 49.7 % (37.0-47.0); HEMOGLOBIN 15.7 G/DL (12.0-16.0); LYMPHOCYTES % (AUTO) 11.4 % (20.0-45.0); MEAN CORPUSCULAR VOLUME 93 FL (80-99); MONOCYTES % (AUTO) 8.3 % (1.0-10.0); NEUTROPHILS % (AUTO) 79.3 % (45.0-75.0); PLATELET COUNT 253 K/UL (150-450); RED BLOOD COUNT 5.34 M/UL (4.20-5.40); RED CELL DISTRIBUTION WIDTH 15.7 % (11.6-14.8); WHITE BLOOD COUNT 12.4 K/UL (4.8-10.8)
[2018-04-17 12:26] LABS: ANION GAP 8 mmol/L (5-15); BLOOD UREA NITROGEN 18 mg/dL (7-18); CALCIUM 9.9 MG/DL (8.5-10.1); CARBON DIOXIDE 32 MMOL/L (21-32); CHLORIDE 99 MMOL/L (98-107); CREATININE 1.1 MG/DL (0.55-1.30); POTASSIUM 4.3 MMOL/L (3.5-5.1); SODIUM 139 MMOL/L (136-145)
[2018-04-17 12:40] LABS: ALANINE AMINOTRANSFERASE 32 U/L (12-78); ALBUMIN 3.9 G/DL (3.4-5.0); ALBUMIN/GLOBULIN RATIO 0.8 (1.0-2.7); ALKALINE PHOSPHATASE 164 U/L (46-116); ASPARTATE AMINO TRANSFERASE 29 U/L (15-37); BILIRUBIN,TOTAL 0.8 MG/DL (0.2-1.0); CKMB 0.9 NG/ML (0.0-3.6); CREATINE KINASE 117 U/L (26-308)
--- NOTE | 2018-04-17 12:55 | NUR ---
ED Nurse Note: patient went for MRI, medications will be administer as soon as patient come back
--- NOTE | 2018-04-17 12:58 | Emergency Room Report ---
History of Present Illness General Chief Complaint: Dyspnea/Respdistress Source: Patient Present Illness HPI Patient has history of cardiac disease. Patient has hypertension asthma and COPD. Patient was recently admitted for chest pain. Patient presents emergency department today very upset crying complaining of chest and epigastric discomfort. She complains of nausea P patient is a poor historian unable to thrive much history. When I spoke the patient's daughter she was also not able to provide much history. Patient states that she short of breath as well. No other complaints are noted. Symptoms noted to be severe. No other modifying factors. No other associated signs and symptoms. No other complaints were noted. Allergies: Coded Allergies: SETH INHIBITORS (Verified Allergy, Unknown, 03/04/16) Patient History Past Medical History: HTN, asthma, COPD Past Surgical History: none Pertinent Family History: none Social History: Denies: smoking, alcohol use, drug use Reviewed Nursing Documentation: PMH: Agreed; PSxH: Agreed Nursing Documentation-PMH Past Medical History: No History, Except For Hx Cardiac Problems: Yes Hx Hypertension: Yes Hx Asthma: Yes Hx COPD: Yes Hx Cancer: No Hx Gastrointestinal Problems: No Hx Neurological Problems: No Review of Systems All Other Systems: negative except mentioned in HPI Physical Exam Vital Signs Date Time Temp Pulse Resp B/P (MAP) Pulse Ox O2 Delivery O2 Flow Rate FiO2 04/17/18 11:36 98.4 89 22 132/93 92 Room Air Sp02 EP Interpretation: reviewed, abnormal General Appearance: alert, moderate distress Head: atraumatic ENT: normal ENT inspection, hearing grossly normal, normal voice Neck: normal inspection, full range of motion, supple, no bony tend Respiratory: no retraction, respiratory distress, decreased breath sounds, accessory muscle use Cardiovascular #1: regular rate, rhythm, no edema Gastrointestinal: normal inspection, normal bowel sounds, soft, no guarding, no hernia, tenderness - Epigastric Genitourinary: no CVA tenderness Musculoskeletal: normal inspection, back normal, normal range of motion Neurologic: normal inspection, alert, responsive, speech normal Psychiatric: normal inspection, judgement/insight normal, mood/affect normal Skin: normal inspection, normal color, no rash Procedures Critical Care Time Critical Care Time Patient had a critical medical condition which untreated could potentially result in life or limb threatening injury. Total critical care time excluding procedures was approximately 45 minutes. Medical Decision Making Diagnostic Impression: Primary Impression: Respiratory distress Additional Impressions: Chest pain Intrahepatic bile duct dilation ER Course Patient presented emergency department today complaint shortness breath chest discomfort. Differential considerations include pneumonia, CHF, COPD just name a few.Given the severity of the patient's presentation I felt this is a highly complex patient. This patient required extensive workup. Patient laboratory workup shows mild elevation white blood cell count. Chest x-ray was negative for infection. Patient was given nebulizer treatments and symptoms seemed slightly improved. Patient had ultrasound abdomen which shows evidence of delivery duct dilatation. Patient also had a headache therefore MRI was ordered. Because severe patient presentation comp located history I felt the patient required mission. Patient will be placed on observation. Case was discussed in detail Dr. Ej Hassan. Labs Test 04/17/18 12:00 White Blood Count 12.4 K/UL (4.8-10.8) Red Blood Count 5.34 M/UL (4.20-5.40) Hemoglobin 15.7 G/DL (12.0-16.0) Hematocrit 49.7 % (37.0-47.0) Mean Corpuscular Volume 93 FL (80-99) Mean Corpuscular Hemoglobin 29.4 PG (27.0-31.0) Mean Corpuscular Hemoglobin Concent 31.7 G/DL (32.0-36.0) Red Cell Distribution Width 15.7 % (11.6-14.8) Platelet Count 253 K/UL (150-450) Mean Platelet Volume 8.0 FL (6.5-10.1) Neutrophils (%) (Auto) 79.3 % (45.0-75.0) Lymphocytes (%) (Auto) 11.4 % (20.0-45.0) Monocytes (%) (Auto) 8.3 % (1.0-10.0) Eosinophils (%) (Auto) 0.4 % (0.0-3.0) Basophils (%) (Auto) 0.6 % (0.0-2.0) Sodium Level 139 MMOL/L (136-145) Potassium Level 4.3 MMOL/L (3.5-5.1) Chloride Level 99 MMOL/L (98-107) Carbon Dioxide Level 32 MMOL/L (21-32) Anion Gap 8 mmol/L (5-15) Blood Urea Nitrogen 18 mg/dL (7-18) Creatinine 1.1 MG/DL (0.55-1.30) Estimat Glomerular Filtration Rate mL/min (>60) Glucose Level 88 MG/DL (74-106) Calcium Level 9.9 MG/DL (8.5-10.1) Total Bilirubin 0.8 MG/DL (0.2-1.0) Aspartate Amino Transf (AST/SGOT) 29 U/L (15-37) Alanine Aminotransferase (ALT/SGPT) 32 U/L (12-78) Alkaline Phosphatase 164 U/L (46-116) Total Creatine Kinase 117 U/L (26-308) Creatine Kinase MB 0.9 NG/ML (0.0-3.6) Creatine Kinase MB Relative Index 0.7 Troponin I 0.000 ng/mL (0.000-0.056) Pro-B-Type Natriuretic Peptide 403 pg/mL (0-125) Total Protein 8.7 G/DL (6.4-8.2) Albumin 3.9 G/DL (3.4-5.0) Globulin 4.8 g/dL Albumin/Globulin Ratio 0.8 (1.0-2.7) Lipase 216 U/L (73-393) EKG Diagnostic Results Rate: normal Rhythm: NSR ST Segments: no acute changes Rhythm Strip Diag. Results EP Interpretation: yes Rate: 84 Rhythm: NSR, no PVC's, no ectopy Chest X-Ray Diagnostic Results Chest X-Ray Diagnostic Results : Chest X-Ray Ordered: Yes Last Vital Signs Date Time Temp Pulse Resp B/P (MAP) Pulse Ox O2 Delivery O2 Flow Rate FiO2 04/17/18 12:18 98.0 84 16 141/91 95 Room Air Status: improved Disposition: PLACE IN OBSERVATION Condition: Serious Referrals: NON PHYSICIAN (PCP) Triston Young MD Apr 17, 2018 12:58
[2018-04-17] MEDS ORDERED: Solu-MEDROL 125mg Inj IVP ONE (13:00)
[2018-04-17] MEDS: Albuterol/Ipratropium 3ml neb HHN SCH ×2 (13:15→14:41)
--- NOTE | 2018-04-17 13:21 | Diagnostic Imaging Report ---
Indication:Abdominal pain Technique: Grayscale and duplex Doppler imaging of the abdomen performed. Comparison: CT 08/14/2011 Findings: There is intrahepatic and extrahepatic biliary ductal dilatation demonstrated. The CBD is about 11 mm and not diameter as measured. There is a stent present within the CBD. The distal portion of the stent is not well seen. Proximal to the stent there is tumefactive sludge noted. The gallbladder is contracted. There are bilateral renal cysts. Portal vein is patent by Doppler examination. There is no free fluid. Spleen is normal in size. Aorta is calcified. IMPRESSION: Moderate biliary ductal dilatation proximal to a CBD stent. Proximal tumefactive sludge. Contracted gallbladder. Similar findings noted on the prior examination in 2011. Please correlate clinically. Bilateral renal cysts
--- NOTE | 2018-04-17 13:24 | Diagnostic Imaging Report ---
Indication: Dyspnea Comparison: 04/07/2018 A single view chest radiograph was obtained. Findings: No definite infiltrate or pulmonary vascular congestion identified. The heart is enlarged. The pulmonary artery appears prominent bilaterally. The aorta is moderately enlarged consistent with atherosclerotic vascular disease. The left hemidiaphragm remains mildly elevated. The bones are osteopenic. There is hardware demonstrated over the lower thoracic spine. Impression: No acute disease. No change
--- NOTE | 2018-04-17 14:08 | NUR ---
ED Nurse Note: patient came from MRI, no s/s of disstres
[2018-04-17] MEDS ORDERED: Solu-MEDROL 125mg Inj ONE (14:19)
[2018-04-17 14:36] VITALS: BP 128/80
--- NOTE | 2018-04-17 14:45 | NUR ---
ED Nurse Note: patient has unsteady gait, using her umbrela as a cane. AAO x 4, all belongings were given to the patient, no acute disstres, no pain, withholding the patient due to breathing treatment.
--- NOTE | 2018-04-17 14:56 | Diagnostic Imaging Report ---
Indication: Headache Technique: The head was imaged in a 1.5 Jossy magnet. Sequences obtained include sagittal and axial T1 FLAIR, axial T2 fast spin echo with fat saturation, axial T2 FLAIR, diffusion and ADC map. Comparison: None Findings: There is mild prominence of the sulci, ventricles, and basal cisterns consistent with atrophy. Mild, nonspecific T2 hyperintensity noted within white matter. This may be due to chronic small vessel disease. There is no restricted diffusion. Aguilar-white differentiation is normal. There is no mass effect, midline shift, edema, or hemorrhage. There are no abnormal extra-axial or intra-axial fluid collections. The corpus callosum and sella are unremarkable. The brainstem and cerebellum are unremarkable. Bone marrow signal within the visualized osseous structures appears age appropriate and unremarkable otherwise. Impression: No acute intracranial findings. Mild atrophy and evidence of chronic small vessel disease involving white matter tracts. Study is limited by motion.
--- NOTE | 2018-04-17 15:00 | NUR ---
NURSE NOTES: patient is admitted on ht efloor under dr nolen care. patient is noted to AOX4. VSS take and recorded. NSR on ht emonitor. not in acute distress. IV line noted. bus driver/monitor initiated. patient was oriented to the room. belongings checked and signed. will continue to monitor.
[2018-04-17] MEDS ORDERED: Morphine Sulfate 2mg/ml Inj IVP PRN (15:30)
[2018-04-17] MEDS: cefTRIAXone 1 GM in D5W 55 ML IVPB SCH (17:22)
--- NOTE | 2018-04-17 18:20 | NUR ---
NURSE NOTES: left a message to dr nolen regarding patients breathing treatment and medication for fever. awaits callback and new order.
--- NOTE | 2018-04-17 19:03 | NUR ---
CASE MANAGEMENT: REVIEW 77/F BIBA FROM HOME CC: RESP DISTRESS . SOB . CHEST PAIN SI: ACS T 98.0 HR 27 RR 16 BP 141/91 SAT 95% ROOM AIR WBC 12.4 TROPONIN I 0.000 BNP 403 IS: SOLU MEDROL IV X1 ALBUTEROL HHN X1 ASA PO X1 MORPHINE IV X1 ATIVAN IV X1 ZOFRAN IV X1 PATIENT ADMITTED TO TELEMETRY UNIT 04/17/2018 DCP: PATIENT IS FROM HOME
--- NOTE | 2018-04-17 19:12 | NUR ---
HAND-OFF: Report given to manuela alfaro.
--- NOTE | 2018-04-17 19:30 | NUR ---
NURSE NOTES: Received pt from СЕРГЕЙ Salazar. Pt asleep. Bed in lowest position. Call light within reach. Will continue to monitor.
[2018-04-17 21:00] VITALS: BP 114/79
[2018-04-17] MEDS: Acetaminophen 500mg (ES) tab ORAL SCH (22:00)
[2018-04-17] MEDS: Solu-MEDROL 40mg Inj IVP SCH (22:56)
[2018-04-17] MEDS: Heparin 5000 units/ml inj SUBQ SCH (23:04)
--- NOTE | 2018-04-18 02:00 | Consultation ---
DATE OF CONSULTATION: 04/18/2018 CONSULTING PHYSICIAN: Moe Leblanc M.D. REQUESTING PHYSICIAN: Ej Hassan M.D. REASON FOR CONSULTATION: Chest pain and shortness of breath. HISTORY OF PRESENT ILLNESS: This is a 77-year-old female has a known history of COPD and hypertensive heart disease. She was hospitalized approximately 10 days ago with chest pain due to that was felt to be pleuritic in nature and associated with an exacerbation of her COPD. She was stabilized and discharged home, but returned today with discomfort in her mid epigastric and chest region. She has had nausea and has not been eating well. She has also been short of breath, congested, and wheezing. She has not passed out and has not had any change in her bowel habits noted. ALLERGIES: Include cough to angiotensin-converting enzyme inhibitors. MEDICATIONS: Prior to admission, reviewed and reconciled. 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 FAMILY HISTORY: Noncontributory. REVIEW OF SYSTEMS: Presently 10-point review of systems was performed. Limited data obtained due to the patient's somnolence, but all pertinent positives noted above. PHYSICAL EXAMINATION: GENERAL: Awake and alert, but withdrawn and somnolent. She apparently received morphine in the emergency room. VITAL SIGNS: Blood pressure 114/79, pulse 65, respirations 18, afebrile, and oxygen saturation is only 91% on two liters. HEENT: Temporal wasting. Arcus senilis. Oropharynx clear. Mucous membranes are dry. NECK: Supple. Jugular venous pressure normal. There is some accessory muscle use. LUNGS: Diminished breath sounds. Scattered rhonchi and expiratory wheezes. CARDIAC: Regular rhythm and rate. Normal S1 and S2 with a fourth heart sound. ABDOMEN: Soft and nontender. EXTREMITIES: Good pulses. No edema. NEUROLOGIC: No focal deficits. LABORATORY DATA: natriuretic peptide is 400. Troponin negative. Chemistry panel within normal limits. White count 12.4 and hemoglobin 15.7. An ABG was requested at this time of evaluation and findings include a pH 7.41, pCO2 44, and pO2 55 on room air. Chest x-ray reveals no acute process. MRI of the brain revealed atrophy and small-vessel disease. Abdominal ultrasound revealed biliary duct dilatation with common bile duct stent in place. Sludge in a contracted gallbladder. IMPRESSION: 1. Hypoxia. Abdominal pain in the setting of hepatobiliary disease with patent stent. 2. COPD with exacerbation. 3. Encephalopathy. 4. History of hypertension and hypertensive heart disease. 5. Chronic diastolic congestive heart failure. PLAN: Cardiac monitoring. Nasal oxygen. Inhaled bronchodilators. Intravenous steroids. Serial evaluation of hepatobiliary enzymes. Metabolic profile. Discontinue morphine. Serial troponin. Decrease dose of antihypertensives in view of low range blood pressure. Moe Leblanc M.D. DR: KAMALA JOB#: [id number] CC:
[2018-04-18] MEDS: Albuterol/Ipratropium 3ml neb HHN SCH ×4 (02:55→11:42)
[2018-04-18 04:00] VITALS: BP 160/84
[2018-04-18] MEDS: oxyCODONE HCL/Acetaminophen 5/325mg ORAL PRN ×3 (04:01→21:46)
[2018-04-18] MEDS: Acetaminophen 500mg (ES) tab ORAL SCH ×3 (05:33→21:47)
[2018-04-18 05:37] VITALS: BP 160/84
[2018-04-18] MEDS: Promethazine/Codeine 5ml UD ORAL PRN ×4 (06:51→21:46)
--- NOTE | 2018-04-18 07:18 | NUR ---
NURSE NOTES: Received report from СЕРГЕЙ Granger. Pt is sitting in bed with no distress noted. Bed is in lowest position, side rails up X2, and call light is within reach. Will continue to monitor.
--- NOTE | 2018-04-18 07:18 | NUR ---
HAND-OFF: Report given to СЕРГЕЙ Mejia. Pt stable.
[2018-04-18 07:31] LABS: HEMATOCRIT 43.8 % (37.0-47.0); HEMOGLOBIN 14.1 G/DL (12.0-16.0); MEAN CORPUSCULAR VOLUME 92 FL (80-99); PLATELET COUNT 226 K/UL (150-450); RED BLOOD COUNT 4.74 M/UL (4.20-5.40); RED CELL DISTRIBUTION WIDTH 15.7 % (11.6-14.8)
[2018-04-18 07:44] LABS: AMYLASE 151 U/L (25-115)
[2018-04-18 07:55] LABS: ALANINE AMINOTRANSFERASE 25 U/L (12-78); ALBUMIN 3.4 G/DL (3.4-5.0); ALBUMIN/GLOBULIN RATIO 0.7 (1.0-2.7); ALKALINE PHOSPHATASE 142 U/L (46-116); ANION GAP 11 mmol/L (5-15); ASPARTATE AMINO TRANSFERASE 26 U/L (15-37); BILIRUBIN,TOTAL 0.5 MG/DL (0.2-1.0); BLOOD UREA NITROGEN 36 mg/dL (7-18); CALCIUM 9.3 MG/DL (8.5-10.1); CARBON DIOXIDE 27 MMOL/L (21-32); CHLORIDE 100 MMOL/L (98-107); CREATININE 1.4 MG/DL (0.55-1.30); POTASSIUM 4.2 MMOL/L (3.5-5.1); SODIUM 138 MMOL/L (136-145)
[2018-04-18 08:00] VITALS: BP 144/87
[2018-04-18] MEDS: Solu-MEDROL 40mg Inj IVP SCH ×2 (08:31→21:46)
[2018-04-18] MEDS: Heparin 5000 units/ml inj SUBQ SCH ×2 (08:32→21:48)
--- NOTE | 2018-04-18 09:25 | History & Physical ---
History and Physical History & Physicial CC: chest pain and sob HISTORY OF PRESENT ILLNESS: The patient is a 77-year-old female. She has a history of hypertensive heart disease. She has a [id number] history of smoking and she presented with complaints of shortness of breath, cough, and chest pain. According to the patient, she was well until one to two days prior to admission when she developed some wheezing, shortness of breath, cough, and chest pain. Chest pain was mostly with inspiration. Denies any fevers or chills. She had no phlegm. On evaluation in the emergency room, she was diagnosed with COPD exacerbation. She was given a dose of steroids. She is now admitted for further evaluation and care. PAST MEDICAL HISTORY: As above. PAST SURGICAL HISTORY: Includes hip surgery. CURRENT MEDICATIONS: Reconciled and reviewed. ALLERGIES: Include SETH inhibitors. FAMILY HISTORY: Noncontributory. SOCIAL HISTORY: Significant for [id number] history of smoking. The patient states she quit earlier this month. REVIEW OF SYSTEMS: GENERAL: No fevers or chills. HEENT: No headache or visual changes. CARDIOPULMONARY: Positive chest pain. Positive shortness of breath and wheezing. GASTROINTESTINAL: No nausea or vomiting. GENITOURINARY: No urgency or frequency. MUSCULOSKELETAL: No joint pain or swelling. NEUROLOGIC: No evidence of seizures. PHYSICAL EXAMINATION: VITAL SIGNS: Temperature 98 degrees, pulse 80, respirations 20, and blood pressure 144/87 GENERAL: The patient is well developed, in no apparent distress. HEART: Regular rate and rhythm. LUNGS: Significant for scattered wheezes. ABDOMEN: Soft, nontender, and nondistended. EXTREMITIES: Without clubbing, cyanosis, or edema. LABORATORY AND IMAGING DATA: wbc 12 hbg 14 trop neg cxr- copd ASSESSMENT: This is a pleasant female with complaints of shortness of breath and chest pain suspect secondary to chronic obstructive pulmonary disease exacerbation. PROBLEMS LIST: 1. COPD exacerbation. 2. Likely noncardiac chest pain. 3. History of hypertension. PLAN: 1. Intravenous steroids. 2. Respiratory treatments. 3. Pulmonary consultation. 4. Antibiotics for bronchitis. 5. Check venous duplex. 6. DVT stress and ulcer prophylaxis. Ej Hassan MD Apr 18, 2018 09:25
[2018-04-18 12:03] VITALS: BP 153/80
[2018-04-18] MEDS ORDERED: dilTIAZem HCl 30mg tab ORAL SCH (14:00)
[2018-04-18 16:00] VITALS: BP 111/76
--- NOTE | 2018-04-18 16:15 | Progress Note ---
DATE: 04/18/2018 CARDIOLOGY PROGRESS NOTE SUBJECTIVE: The patient is somewhat more alert today, but still withdrawn. No chest pain. Some shortness of breath noted. No sputum production today. OBJECTIVE: VITAL SIGNS: Blood pressure 153/80, pulse 71, respiratory rate 18. Monitored rhythm sinus. Afebrile. Oxygen saturation on 2 L is 97%. HEENT: Temporal wasting. Oropharynx clear with no thrush. RESPIRATORY: Diminished breath sounds. LUNGS: Bilateral rhonchi. HEART: Regular rhythm and rate. Normal S1, S2 with a fourth heart sound. ABDOMEN: Soft. EXTREMITIES: No edema. LABORATORY DATA: White count 7, hemoglobin 14. Potassium 4.2, BUN 36, creatinine 1.4. Amylase and lipase normal. TSH normal. B12 and folate normal. Troponin negative x2. IMPRESSION: 1. COPD with acute exacerbation. 2. Hypoxia. 3. Noncardiac, pleuritic chest pain. 4. Acute kidney injury. No signs of acute congestive heart failure. 5. Sedation likely due to morphine dosing in the emergency room. PLAN: 1. No additional morphine. 2. Inhaled bronchodilators. 3. Respiratory hygiene. 4. Maintenance hydration. 5. Antiplatelet therapy. 6. DVT prophylaxis. 7. Follow up results of venous duplex scan of lower extremities. 8. Empiric antibiotics. Moe Leblanc M.D. DR: Osmani JOB#: [id number] CC:
[2018-04-18] MEDS: cefTRIAXone 1 GM in D5W 55 ML IVPB SCH (16:30)
[2018-04-18] MEDS: Levalbuterol Inh UD 1.25mg/0.5ml HHN PRN ×2 (17:13→22:12)
--- NOTE | 2018-04-18 19:20 | NUR ---
HAND-OFF: Report given to СЕРГЕЙ Granger. Plan of care endorsed.
--- NOTE | 2018-04-18 19:30 | NUR ---
NURSE NOTES: Received pt from СЕРГЕЙ Arambula. Pt awake, alert, and complaining of pain. Bed in lowest position. Call light within reach. Will continue to monitor.
[2018-04-18 20:00] VITALS: BP 140/85
[2018-04-19] VITALS: BP 125/72
[2018-04-19 04:00] VITALS: BP 117/74
[2018-04-19] MEDS: Acetaminophen 500mg (ES) tab ORAL SCH ×3 (05:51→22:00)
--- NOTE | 2018-04-19 06:37 | NUR ---
NURSE NOTES: Called and left a message for Dr. Hassan regarding pts request for stronger pain meds. Also informed MD about no lab draw scheduled for this morning. He gave new order for MS 1 IV Q4 PRN for severe pain. Will continue to monitor.
[2018-04-19] MEDS: Promethazine/Codeine 5ml UD ORAL PRN ×2 (06:52→20:18)
[2018-04-19] MEDS: oxyCODONE HCL/Acetaminophen 5/325mg ORAL PRN (06:53)
--- NOTE | 2018-04-19 07:18 | NUR ---
NURSE NOTES: Received report from СЕРГЕЙ Granger. pt is resting in bed. Bed is in lowest position, side rails up X2, and call light is within reach. Will continue to monitor.
--- NOTE | 2018-04-19 07:37 | NUR ---
HAND-OFF: Report given to СЕРГЕЙ Arambula. Pt stable.
[2018-04-19 08:00] VITALS: BP 136/87
[2018-04-19 08:25] LABS: HEMATOCRIT 44.7 % (37.0-47.0); HEMOGLOBIN 14.3 G/DL (12.0-16.0); MEAN CORPUSCULAR VOLUME 93 FL (80-99); PLATELET COUNT 224 K/UL (150-450); RED BLOOD COUNT 4.82 M/UL (4.20-5.40); RED CELL DISTRIBUTION WIDTH 15.4 % (11.6-14.8); WHITE BLOOD COUNT 10.8 K/UL (4.8-10.8)
[2018-04-19 08:34] LABS: ANION GAP 7 mmol/L (5-15); BLOOD UREA NITROGEN 37 mg/dL (7-18); CALCIUM 9.5 MG/DL (8.5-10.1); CARBON DIOXIDE 28 MMOL/L (21-32); CHLORIDE 105 MMOL/L (98-107); CREATININE 1.2 MG/DL (0.55-1.30); POTASSIUM 4.8 MMOL/L (3.5-5.1); SODIUM 140 MMOL/L (136-145)
[2018-04-19] MEDS: Solu-MEDROL 40mg Inj IVP SCH (08:54)
[2018-04-19] MEDS: Heparin 5000 units/ml inj SUBQ SCH ×2 (08:58→20:22)
--- NOTE | 2018-04-19 09:18 | General Progress Note ---
Assessment/Plan Problem List: (1) COPD exacerbation ICD Codes: J44.1 - Chronic obstructive pulmonary disease with (acute) exacerbation SNOMED: 365742639 (2) Acute bronchitis ICD Codes: J20.9 - Acute bronchitis,unspecified SNOMED: 66068121 (3) Chest pain ICD Codes: R07.9 - Chest pain, unspecified SNOMED: 06029600 Status: stable Assessment/Plan iv steroids resp rx abx pain order home hhn Subjective ROS Limited/Unobtainable: No Constitutional: Reports: malaise, weakness Cardiovascular: Reports: no symptoms Respiratory: Reports: cough, shortness of breath Gastrointestinal/Abdominal: Reports: no symptoms Genitourinary: Reports: no symptoms Neurologic/Psychiatric: Reports: no symptoms Endocrine: Reports: no symptoms Hematologic/Lymphatic: Reports: no symptoms Allergies: Coded Allergies: SETH INHIBITORS (Verified Allergy, Unknown, 03/04/16) All Systems: reviewed and negative except above Subjective c/o chest pain. still with sob. no fever or chills. Objective Last 24 Hour Vital Signs Date Time Temp Pulse Resp B/P (MAP) Pulse Ox O2 Delivery O2 Flow Rate FiO2 04/19/18 08:56 78 136/87 04/19/18 04:00 97.8 78 20 117/74 (88) 96 04/19/18 04:00 72 04/19/18 00:00 89 04/19/18 00:00 98.7 97 20 125/72 (89) 97 04/18/18 22:26 87 18 Nasal Cannula 2.0 28 04/18/18 22:23 28 04/18/18 22:14 81 18 97 Nasal Cannula 2.0 28 04/18/18 21:00 Nasal Cannula 2.0 04/18/18 20:00 98.2 90 24 140/85 (103) 97 04/18/18 20:00 Room Air 21 04/18/18 19:59 95 Room Air 21 04/18/18 17:31 86 18 99 Nasal Cannula 2.0 28 04/18/18 17:13 84 18 96 Nasal Cannula 2.0 28 04/18/18 16:00 123 04/18/18 16:00 98.2 123 20 111/76 (88) 96 04/18/18 14:05 126 124/80 04/18/18 12:03 98.3 71 18 153/80 (104) 95 2/9/19 12:00 70 04/18/18 11:51 87 22 99 Nasal Cannula 2.0 28 04/18/18 11:42 84 20 97 Nasal Cannula 2.0 28 Intake and Output 04/18/18 04/19/18 18:59 06:59 Intake Total 360 ml 200 ml Balance 360 ml 200 ml Intake Oral 360 ml 200 ml # Voids 2 3 Laboratory Tests 04/19/18 07:45: White Blood Count 10.8#, Red Blood Count 4.82, Hemoglobin 14.3, Hematocrit 44.7 , Mean Corpuscular Volume 93, Mean Corpuscular Hemoglobin 29.6, Mean Corpuscular Hemoglobin Concent 31.9L, Red Cell Distribution Width 15.4H, Platelet Count 224, Mean Platelet Volume 8.4, Neutrophils (%) (Auto) , Lymphocytes (%) (Auto) , Monocytes (%) (Auto) , Eosinophils (%) (Auto) , Basophils (%) (Auto) , Neutrophils % (Manual) [Pending], Lymphocytes % (Manual) [Pending], Platelet Estimate [Pending], Platelet Morphology [Pending], Sodium Level 140, Potassium Level 4.8, Chloride Level 105, Carbon Dioxide Level 28, Anion Gap 7, Blood Urea Nitrogen 37H, Creatinine 1.2, Estimat Glomerular Filtration Rate , Glucose Level 159H, Calcium Level 9.5 Height (Feet): 5 Height (Inches): 4.00 Weight (Pounds): 139 General Appearance: WD/WN, alert Neck: supple Cardiovascular: regular rhythm Respiratory/Chest: expiratory wheezing Abdomen: normal bowel sounds, non tender, soft, no organomegaly Edema: no edema noted Arm (L), no edema noted Arm (R), no edema noted Leg (L), no edema noted Leg (R), no edema noted Pedal (L), no edema noted Pedal (R), no edema noted Generalized Ej Hassan MD Apr 19, 2018 09:18
--- NOTE | 2018-04-19 09:25 | NUR ---
CASE MANAGEMENT: REVIEW 04/19/2018 SI: ACS T 97.3 HR 78 RR 20 B/P 136/87 SATS 97% ON 2L/NC BUN 37 GLU 159 IS: PROTONIX PO QD NORVASC PO QD SOLU MEDROL IV QD CEFTRIAXONE IV Q24H TELE STATUS DCP: PATIENT IS FROM HOME
--- NOTE | 2018-04-19 09:34 | NUR ---
NURSE NOTES: Informed Dr. Hassan that patient is under OBS. Per , okay to make pt inpatient
[2018-04-19 12:00] VITALS: BP 127/89
--- NOTE | 2018-04-19 12:15 | Cardiology Report ---
APPROVED REPORT EXAM: Two-dimensional and M-mode echocardiogram with Doppler and color Doppler. INDICATION Acute cerb vasc disease M-Mode DIMENSIONS IVSd1.5 (0.7-1.1cm)Left Atrium (MM)3.9 (1.6-4.0cm) LVDd3.7 (3.5-5.6cm)Aortic Root3.5 (2.0-3.7cm) PWd1.4 (0.7-1.1cm)Aortic Cusp Exc.2.0 (1.5-2.0cm) LVDs1.8 (2.5-4.0cm) PWs2.2 cm Normal left ventricular chamber size, systolic function and wall motion. Left ventricular ejection fraction estimated to be 60 %. Mild left ventricular hypertrophy. No evidence of pericardial effusion. All other cardiac chamber sizes are within normal limits. Mild focal aortic valve sclerosis with adequate cusp excursion. Mildly thickened mitral valve leaflets with normal excursion. Mild mitral annulus and aortic root calcification. Pulmonic valve not well visualized. Normal tricuspid valve structure. IVC is normal in size with physiological collapse. A color flow and spectral Doppler study was performed and revealed: No aortic insufficiency. No mitral regurgitation. Mitral diastolic velocities suggest mild left ventricular diastolic dysfunction (Grade I). Trace tricuspid regurgitation. Tricuspid systolic velocities suggests peak right ventricular systolic pressure of 19 mmHg. No pulmonic regurgitation present.
[2018-04-19] MEDS: Morphine Sulfate 2mg/ml Inj IVP PRN ×2 (13:10→20:19)
[2018-04-19] MEDS: Levalbuterol Inh UD 1.25mg/0.5ml HHN PRN (15:00)
[2018-04-19 16:00] VITALS: BP 144/97
[2018-04-19] MEDS: cefTRIAXone 1 GM in D5W 55 ML IVPB SCH (17:22)
--- NOTE | 2018-04-19 19:12 | NUR ---
HAND-OFF: Report given to СЕРГЕЙ Granger. Plan of care endorsed.
--- NOTE | 2018-04-19 19:20 | NUR ---
NURSE NOTES: Received pt from СЕРГЕЙ Arambula. Pt awake, alert, and still sob. Bed in lowest position. Call light within reach. Will continue to monitor.
[2018-04-19 20:00] VITALS: BP 117/71
[2018-04-19] MEDS: Eliquis 2.5mg tablet ORAL SCH (22:30)
--- NOTE | 2018-04-19 23:00 | Progress Note ---
DATE: 04/19/2018 CARDIOLOGY PROGRESS NOTE SUBJECTIVE: The patient without chest pain. She still has shortness of breath. She developed atrial fibrillation yesterday afternoon with rare episodes of rapid ventricular rate. PHYSICAL EXAMINATION: VITAL SIGNS: Blood pressure 127/89 to 144/97, heart rate 77 to 109, respiratory 18 to 22, afebrile, and oxygen saturation on 2 L is 95% to 97%. LUNGS: Diminished breath sounds. No wheezing. HEART: Irregularly irregular rhythm. Normal S1 and S2. ABDOMEN: Soft. EXTREMITIES: No edema. LABORATORY DATA: Echocardiogram with normal ejection fraction, normal PA systolic pressure estimated, and no significant valvular disease. Potassium is 4.8, BUN is 37, and creatinine 1.2. IMPRESSION: 1. COPD exacerbation. 2. Pleuritic chest pain. 3. Paroxysmal atrial fibrillation. 4. Hypertensive heart disease. 5. History of stent. PLAN: 1. Add full anticoagulation with apixaban. 2. Discontinue subcutaneous heparin. 3. Add amiodarone in an attempt to cardiovert. 4. Continue steroids with taper and cautious use of inhaled bronchodilators. Moe Leblanc M.D. DR: KAMALA JOB#: [id number] CC:
[2018-04-20] VITALS: BP 115/81
[2018-04-20] MEDS: Amiodarone 200mg tab ORAL SCH ×3 (01:41→21:23)
[2018-04-20] MEDS: oxyCODONE HCL/Acetaminophen 5/325mg ORAL PRN (01:41)
[2018-04-20] MEDS: Promethazine/Codeine 5ml UD ORAL PRN ×2 (01:42→21:23)
[2018-04-20] MEDS: Levalbuterol Inh UD 1.25mg/0.5ml HHN PRN ×2 (02:29→13:53)
[2018-04-20 04:00] VITALS: BP 120/76
[2018-04-20] MEDS: Acetaminophen 500mg (ES) tab ORAL SCH ×3 (05:04→21:24)
--- NOTE | 2018-04-20 07:19 | NUR ---
HAND-OFF: Report given to СЕРГЕЙ Bobo. Pt stable.
--- NOTE | 2018-04-20 07:30 | NUR ---
NURSE NOTES: Received report from Swathi Granger. Pt is sitting up in bed having breakfast. Bed is in lowest position, side rails up X2, and call light is within reach. Will continue to monitor.
[2018-04-20 08:00] VITALS: BP 141/88
[2018-04-20] MEDS ORDERED: Isovue-300 100ml vial INJ PRN (08:30)
--- NOTE | 2018-04-20 08:33 | General Progress Note ---
Assessment/Plan Problem List: (1) COPD exacerbation ICD Codes: J44.1 - Chronic obstructive pulmonary disease with (acute) exacerbation SNOMED: 607676466 (2) Acute bronchitis ICD Codes: J20.9 - Acute bronchitis,unspecified SNOMED: 63234594 (3) Chest pain ICD Codes: R07.9 - Chest pain, unspecified SNOMED: 20642618 Status: stable, not improved Assessment/Plan iv steroids resp rx abx pain ct carmelina to r/o pe check venous duplex HHN atc a4 Subjective ROS Limited/Unobtainable: No Constitutional: Reports: malaise, weakness HEENT: Reports: no symptoms Cardiovascular: Reports: no symptoms Respiratory: Reports: cough, shortness of breath Gastrointestinal/Abdominal: Reports: no symptoms Genitourinary: Reports: no symptoms Neurologic/Psychiatric: Reports: no symptoms Endocrine: Reports: no symptoms Hematologic/Lymphatic: Reports: no symptoms Allergies: Coded Allergies: SETH INHIBITORS (Verified Allergy, Unknown, 03/04/16) All Systems: reviewed and negative except above Subjective c/o chest pain. still with sob. no fever or chills. d/w staff - difficulty ambulating to bathroom without significant sob Objective Last 24 Hour Vital Signs Date Time Temp Pulse Resp B/P (MAP) Pulse Ox O2 Delivery O2 Flow Rate FiO2 04/20/18 07:43 Nasal Cannula 2.0 28 04/20/18 07:43 98 Nasal Cannula 2.0 28 04/20/18 04:00 81 04/20/18 04:00 97.7 63 18 120/76 (91) 96 04/20/18 02:47 75 20 9 Nasal Cannula 2.0 04/20/18 02:27 84 20 96 Nasal Cannula 2.0 28 04/20/18 00:21 97 Nasal Cannula 2.0 28 04/20/18 00:21 Nasal Cannula 2.0 28 04/20/18 00:00 97.2 79 18 115/81 (92) 97 04/20/18 00:00 72 04/19/18 21:00 Nasal Cannula 2.0 04/19/18 20:00 97.7 86 18 117/71 (86) 98 04/19/18 16:00 124 04/19/18 16:00 97.5 109 20 144/97 (113) 97 04/19/18 15:10 95 20 97 Nasal Cannula 2.0 04/19/18 15:03 28 04/19/18 15:00 94 22 95 Nasal Cannula 2.0 28 04/19/18 12:00 77 04/19/18 12:00 97.4 79 18 127/89 (102) 97 04/19/18 09:00 Nasal Cannula 2.0 04/19/18 08:56 78 136/87 Intake and Output 04/19/18 04/20/18 19:00 07:00 Intake Total 480 ml Balance 480 ml Intake Oral 480 ml # Voids 3 2 Height (Feet): 5 Height (Inches): 4.00 Weight (Pounds): 139 Objective General Appearance: WD/WN, alert Neck: supple Cardiovascular: regular rhythm Respiratory/Chest: expiratory wheezing Abdomen: normal bowel sounds, non tender, soft, no organomegaly Edema: no edema noted Arm (L), no edema noted Arm (R), no edema noted Leg (L), no edema noted Leg (R), no edema noted Pedal (L), no edema noted Pedal (R), no edema noted Generalized Ej Hassan MD Apr 20, 2018 08:33
[2018-04-20] MEDS ORDERED: Milk of Magnesia 30ml Ud ORAL PRN (08:45)
[2018-04-20] MEDS: Budesonide HHN 0.25mg/2ml ud HHN SCH (09:00)
[2018-04-20] MEDS: Solu-MEDROL 40mg Inj IVP SCH (09:25)
[2018-04-20] MEDS: Docusate 250mg cap ORAL SCH ×2 (09:25→17:38)
[2018-04-20] MEDS: Eliquis 2.5mg tablet ORAL SCH ×2 (09:26→17:38)
--- NOTE | 2018-04-20 09:43 | NUR ---
NURSE NOTES: Ct called to clarify order for CT to rule out PE. Per CT, CTA's are used to rule out PE. Contacted Dr. Hassan and he asked that I change the order to CTA. Consent for contrast signed.
[2018-04-20] MEDS ORDERED: Isovue-370 150ml vial INJ PRN (09:45)
[2018-04-20 12:00] VITALS: BP 154/102
--- NOTE | 2018-04-20 12:31 | Diagnostic Imaging Report ---
ndication: Hypoxia, COPD with acute exacerbation Technique: IV administration nonionic contrast. Spiral acquisitions obtained from the lung bases to the lung apices. Multiplanar and 3-D reconstructions were generated. Total dose length product 671.83 mGycm. CTDIvol(s) 14.54,19.02 mGy. Dose reduction achieved using automated exposure control Comparison: none Findings: No intraluminal filling defects or other findings to suggest acute pulmonary embolus are demonstrated. The pulmonary arteries are well opacified. The right and left main pulmonary arteries are dilated, the right measuring approximately 32 mm in diameter and the left 30 mm. No isolated right ventricular dilatation is demonstrated. The aorta is tortuous, but there is no evidence of thoracic aortic aneurysm or dissection. There is normal branching anatomy of the great neck vessels. The lung parenchyma demonstrates generalized hyperinflation. There is mild central bronchial wall thickening noted. Focal areas of fibrosis are noted in the left lower lobe. No infiltrates, effusions, congestion, masses, or nodules are demonstrated. The included thyroid demonstrates multiple subcentimeter nodules. No mediastinal or hilar mass or adenopathy. The heart size is upper limits of normal. No pericardial effusion is noted. No axillary or chest wall mass or adenopathy. The bones demonstrate kyphotic deformity of the thoracolumbar junction with evidence of one or more compression fractures and spinal fusion hardware in place. There is also a wedge compression fracture deformity of the T8 vertebral body with approximately 40% height loss anteriorly. There is equivocally a mild compression fracture deformity of the T7 vertebral body as well. The included upper abdominal viscera demonstrates evidence of biliary ductal dilatation. This is also described on recent ultrasound Impression: No evidence of acute pulmonary embolus or other acute thoracic pathology Evidence of COPD Dilated right and left main pulmonary arteries, consistent with pulmonary arterial hypertension Subcentimeter thyroid nodules. 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 Consider MRI if these are considered clinically relevant Biliary ductal dilatation, also described on recent ultrasound of 04/17/[address] scanner at [facility] is accredited by the [employer] and the scans are performed using protocols designed to limit radiation exposure to as low as reasonably achievable to attain images of sufficient resolution adequate for diagnostic evaluation.
[2018-04-20 16:00] VITALS: BP 131/90
--- NOTE | 2018-04-20 16:20 | NUR ---
Social Service Note Referral faxed to [facility] for Hand Held Nebulizer [phone] (p) [phone] (f). Will follow up.
[2018-04-20] MEDS: cefTRIAXone 1 GM in D5W 55 ML IVPB SCH (17:38)
[2018-04-20] MEDS: Morphine Sulfate 2mg/ml Inj IVP PRN (17:39)
--- NOTE | 2018-04-20 18:03 | NUR ---
CASE MANAGEMENT: REVIEW SI: ACS T 97.3 HR 70 RR 20 BP 154/102 SAT 100% NC/2L IS: SOLU MEDROL IV QD PULMICORT HHN Q12HR AMIODARONE PO Q12HR ELEQUIS PO BID CEFTRIAXONE IV Q24HR TELEMETRY UNIT STATUS DCP: PATIENT IS FROM HOME. HOME WITH HOME HEALTH
--- NOTE | 2018-04-20 19:20 | NUR ---
NURSE NOTES: Received pt from СЕРГЕЙ Mejia. Pt asleep. Bed in lowest position. NC on. Call light within reach. Will continue to monitor.
[2018-04-20 20:00] VITALS: BP 127/95
--- NOTE | 2018-04-20 22:45 | Progress Note ---
DATE: 04/20/2018 SUBJECTIVE: The patient is short of breath with ambulation. Some sharp chest pain. Monitored sinus rhythm. Yesterday, she had atrial fibrillation. CT scan was negative for pulmonary emboli. There was some pulmonary artery hypertension noted. The echocardiogram revealed normal ejection fraction with no pulmonary hypertension however. PHYSICAL EXAMINATION: VITAL SIGNS: Blood pressure 131/90, pulse 79, respiratory rate 20. LUNGS: Diminished breath sounds. HEART: Regular rhythm and rate. Normal S1 and S2 with a fourth heart sound. ABDOMEN: Soft. No edema. IMPRESSION: 1. Chronic obstructive pulmonary disease exacerbation. 2. Pleuritic chest pain. 3. Paroxysmal atrial fibrillation. 4. Paroxysmal bronchospasm. 5. Hypertensive heart disease. PLAN: 1. Full anticoagulation, amiodarone for atrial arrhythmias suppression. 2. Titrate antihypertensives. 3. Mobilize steroid taper. 4. May need nursing home facility for rehabilitation. Moe Leblanc M.D. DR: Valente JOB#: [id number] CC:
[2018-04-21] VITALS: BP 124/100
[2018-04-21] MEDS: Levalbuterol Inh UD 1.25mg/0.5ml HHN PRN ×2 (03:27→19:47)
[2018-04-21] MEDS: Budesonide HHN 0.25mg/2ml ud HHN SCH ×3 (03:38→21:00)
[2018-04-21 04:00] VITALS: BP 138/83
[2018-04-21] MEDS: Acetaminophen 500mg (ES) tab ORAL SCH ×3 (06:00→22:00)
[2018-04-21] MEDS: Morphine Sulfate 2mg/ml Inj IVP PRN (07:19)
[2018-04-21 07:23] LABS: ALANINE AMINOTRANSFERASE 35 U/L (12-78); ALBUMIN 3.1 G/DL (3.4-5.0); ALBUMIN/GLOBULIN RATIO 0.7 (1.0-2.7); ALKALINE PHOSPHATASE 130 U/L (46-116); ANION GAP 7 mmol/L (5-15); ASPARTATE AMINO TRANSFERASE 19 U/L (15-37); BILIRUBIN,TOTAL 0.4 MG/DL (0.2-1.0); BLOOD UREA NITROGEN 27 mg/dL (7-18); CALCIUM 9.5 MG/DL (8.5-10.1); CARBON DIOXIDE 32 MMOL/L (21-32); CHLORIDE 104 MMOL/L (98-107); POTASSIUM 4.8 MMOL/L (3.5-5.1); SODIUM 143 MMOL/L (136-145)
[2018-04-21 07:28] LABS: BASOPHILS % (AUTO) 0.5 % (0.0-2.0); EOSINOPHILS % (AUTO) 0.2 % (0.0-3.0); HEMATOCRIT 47.1 % (37.0-47.0); HEMOGLOBIN 14.8 G/DL (12.0-16.0); LYMPHOCYTES % (AUTO) 27.7 % (20.0-45.0); MEAN CORPUSCULAR VOLUME 94 FL (80-99); MONOCYTES % (AUTO) 12.3 % (1.0-10.0); NEUTROPHILS % (AUTO) 59.2 % (45.0-75.0); PLATELET COUNT 190 K/UL (150-450); RED BLOOD COUNT 5.03 M/UL (4.20-5.40); RED CELL DISTRIBUTION WIDTH 15.6 % (11.6-14.8)
--- NOTE | 2018-04-21 07:41 | NUR ---
HAND-OFF: Report given to СЕРГЕЙ Arambula. Pt stable.
[2018-04-21 08:00] VITALS: BP 156/103
[2018-04-21] MEDS: Amiodarone 200mg tab ORAL SCH (08:34)
[2018-04-21] MEDS: Eliquis 2.5mg tablet ORAL SCH ×2 (08:35→17:21)
[2018-04-21] MEDS: Docusate 250mg cap ORAL SCH ×2 (08:35→17:21)
[2018-04-21] MEDS: Solu-MEDROL 40mg Inj IVP SCH (08:35)
--- NOTE | 2018-04-21 09:20 | General Progress Note ---
Assessment/Plan Problem List: (1) COPD exacerbation ICD Codes: J44.1 - Chronic obstructive pulmonary disease with (acute) exacerbation SNOMED: 772643585 (2) Acute bronchitis ICD Codes: J20.9 - Acute bronchitis,unspecified SNOMED: 02667589 (3) Chest pain ICD Codes: R07.9 - Chest pain, unspecified SNOMED: 55957352 Status: stable, progressing Assessment/Plan iv steroids resp rx abx pain ct reviewed HHN atc a4 gi eval regarding biliary ductal dilation dc planning pt/ot Subjective ROS Limited/Unobtainable: No Constitutional: Reports: malaise, weakness HEENT: Reports: no symptoms Cardiovascular: Reports: no symptoms Respiratory: Reports: cough, SOB at rest Gastrointestinal/Abdominal: Reports: no symptoms Genitourinary: Reports: no symptoms Neurologic/Psychiatric: Reports: no symptoms Endocrine: Reports: no symptoms Hematologic/Lymphatic: Reports: no symptoms Allergies: Coded Allergies: SETH INHIBITORS (Verified Allergy, Unknown, 03/04/16) All Systems: reviewed and negative except above Subjective c/o chest pain. still with sob. no fever or chills. d/w staff - difficulty ambulating to bathroom without significant sob Objective Last 24 Hour Vital Signs Date Time Temp Pulse Resp B/P (MAP) Pulse Ox O2 Delivery O2 Flow Rate FiO2 04/21/18 08:34 98 154/113 04/21/18 08:32 98.8 04/21/18 04:00 67 04/21/18 04:00 98.8 79 20 138/83 (101) 95 04/21/18 03:38 Nasal Cannula 2.0 28 04/21/18 03:38 Nasal Cannula 2.0 28 04/21/18 03:37 74 20 99 Nasal Cannula 2.0 28 04/21/18 03:27 63 20 94 Nasal Cannula 2.0 28 04/21/18 00:00 66 04/21/18 00:00 97.9 93 19 124/100 (108) 97 04/20/18 23:05 Nasal Cannula 2.0 28 04/20/18 23:05 98 Nasal Cannula 2.0 28 04/20/18 21:00 Nasal Cannula 2.0 04/20/18 20:00 97.7 90 20 127/95 (106) 97 04/20/18 16:00 97.3 79 20 131/90 (104) 97 04/20/18 16:00 70 04/20/18 14:00 75 16 100 Nasal Cannula 2.0 28 04/20/18 13:55 70 16 100 Nasal Cannula 2.0 28 04/20/18 12:00 98.0 77 21 154/102 (119) 95 04/20/18 12:00 76 04/20/18 09:26 90 141/88 Intake and Output 04/20/18 04/21/18 19:00 07:00 Intake Total 480 ml Balance 480 ml Intake Oral 480 ml # Voids 2 5 # Bowel Movements 1 Laboratory Tests 04/21/18 05:20: White Blood Count 5.0, Red Blood Count 5.03, Hemoglobin 14.8, Hematocrit 47.1H, Mean Corpuscular Volume 94, Mean Corpuscular Hemoglobin 29.4, Mean Corpuscular Hemoglobin Concent 31.4L, Red Cell Distribution Width 15.6H, Platelet Count 190 , Mean Platelet Volume 8.1, Neutrophils (%) (Auto) 59.2, Lymphocytes (%) (Auto) 27.7, Monocytes (%) (Auto) 12.3H, Eosinophils (%) (Auto) 0.2, Basophils (%) ( Auto) 0.5, Sodium Level 143, Potassium Level 4.8, Chloride Level 104, Carbon Dioxide Level 32, Anion Gap 7, Blood Urea Nitrogen 27H, Creatinine 1.0, Estimat Glomerular Filtration Rate , Glucose Level 87, Calcium Level 9.5, Magnesium Level 2.0, Total Bilirubin 0.4, Aspartate Amino Transf (AST/SGOT) 19, Alanine Aminotransferase (ALT/SGPT) 35, Alkaline Phosphatase 130H, Pro-B-Type Natriuretic Peptide 807H, Total Protein 7.5, Albumin 3.1L, Globulin 4.4, Albumin /Globulin Ratio 0.7L Height (Feet): 5 Height (Inches): 4.00 Weight (Pounds): 139 Objective General Appearance: WD/WN, alert Neck: supple Cardiovascular: regular rhythm Respiratory/Chest: expiratory wheezing Abdomen: normal bowel sounds, non tender, soft, no organomegaly Edema: no edema noted Arm (L), no edema noted Arm (R), no edema noted Leg (L), no edema noted Leg (R), no edema noted Pedal (L), no edema noted Pedal (R), no edema noted Generalized [place],Ej M. MD Apr 21, 2018 09:20
--- NOTE | 2018-04-21 11:17 | NUR ---
REHAB MED PT NOTE CONSULT RECEIVED, ALONDRA MAGDALENOTED, PATIENT CURRENTLY AT BASELINE LEVEL OF FUNCTION. RECOMMEND HOME AT [place] , NO SKILLED PT NEEDS. ANETA LUIS PT DPT Addendum: 04/21/18 at 1123 by ANETA LUIS PT Amended: Links added.
--- NOTE | 2018-04-21 11:23 | NUR ---
Social Service Note MARIYA faxed referral to [facility] [phone] (f) [phone] (p). Per [facility], [facility] also reviews admissions for there facility at this time. Will follow up. Addendum: 04/21/18 at 1439 by ESME AZAR MSW Social Service Note Patient accepted at [facility] room 4-A skilled. MARIYA informed dgt. Dr. Leblanc will see patient today to determine dc.
[2018-04-21 12:00] VITALS: BP 139/94
--- NOTE | 2018-04-21 14:16 | Cardiology Report ---
APPROVED REPORT EKG Measurement Heart [id number] Atrial fibrillation with rapid ventricular response Marked ST abnormality, possible inferior subendocardial injury Abnormal ECG
--- NOTE | 2018-04-21 14:59 | GI Initial Consult Note ---
History of Present Illness General Date patient seen: Apr 21, 2018 Time patient seen: 14:51 Reason for Hospitalization: Dyspnea/Respdistress Referring physician: PRIMO Reason for Consultation: Common bile duct dilation Present Illness HPI Patient has history of cardiac disease. Patient has hypertension asthma and COPD. Patient was recently admitted for chest pain. Patient presents emergency department today very upset crying complaining of chest and epigastric discomfort. She complains of nausea P patient is a poor historian unable to thrive much history. When I spoke the patient's daughter she was also not able to provide much history. Patient states that she short of breath as well. No other complaints are noted. Symptoms noted to be severe. No other modifying factors. No other associated signs and symptoms. No other complaints were noted. GI consulted for a common bile duct dilation is noted on recent abdominal ultrasound. History limited, patient is poor historian. Patient seen, awake alert and oriented x3 in no apparent distress, no nausea or vomiting or diarrhea. Recent abdominal ultrasound was performed noted that the patient had moderate biliary ductal dilation approximately 11 mm proximal a CBD stent. The patient cannot recall when her last endoscopy was. In addition, the patient was not aware that she had a stent placed in her common bile duct. She believes her last endoscopy was approximately over 5 years ago. She also states that she believes is due for colonoscopy. Labs reviewed; no anemia. No transaminitis. Elevated alkaline phosphatase. Home Meds Active Scripts Acetaminophen* (TYLENOL EXTRA STRENGTH*) 500 Mg Tablet, 500 MG ORAL Q8H, #30 TAB 0 Refills Prov:Vannessa Jones 03/04/16 Albuterol Sulfate* (ALBUTEROL SULFATE MDI*) 8.5 Gm Hfa.aer.ad, 2 PUFF INH Q3H, # 1 INH 0 Refills Prov:DEBBY DEL VALLE M.D. 04/08/14 Codeine/Promethazine Hcl* (PROMETHAZINE-CODEINE SYRUP*) 118 Ml Syrup, 5 ML ORAL Q4H PRN for For Cough, #118 ML 0 Refills Prov:DEBBY DEL VALLE M.D. 04/08/14 Azithromycin* (ZITHROMAX*) 250 Mg Tablet, 250 MG ORAL DAILY, #6 TAB Prov:DEBBY DEL VALLE M.D. 04/08/14 Reported Medications Oxycodone/Acetaminophen 5-325* (PERCOCET 5-325 MG TABLET*) 1 Each Tablet, 1 TAB ORAL Q4H PRN for For Pain, TAB 04/17/18 Albuterol Sulfate (VENTOLIN HFA) 18 Gm Hfa.aer.ad, 2 PUFFS INH EVERY 6 HOURS, # 18 GM 0 Refills 04/05/18 Tizanidine Hcl (ZANAFLEX) 4 Mg Capsule, 4 MG ORAL QHS, #90 CAP 0 Refills 04/05/18 Amlodipine Besylate (Norvasc) 10 Mg Tablet, 10 MG ORAL DAILY, TAB 04/05/18 Oxcarbazepine (OXTELLAR XR) 150 Mg Tab.er.24h, 150 MG ORAL QHS, TAB 04/05/18 Prednisone (Deltasone) 20 Mg Tablet, 5 MG PO 3XW, TAB 04/05/18 Omeprazole (OMEPRAZOLE) 20 Mg Capsule.dr, 20 MG ORAL DAILY, CAP 04/05/18 Med list reviewed/reconciled: Yes Allergies: Coded Allergies: SETH INHIBITORS (Verified Allergy, Unknown, 03/04/16) Patient History History Provided By: Patient, Medical Record PMH Narrative Past Medical History: HTN, asthma, COPD Past Surgical History: none Pertinent Family History: none Social History: Denies: smoking, alcohol use, drug use Reviewed Nursing Documentation: PMH: Agreed; PSxH: Agreed Nursing Documentation-PMH Past Medical History: No History, Except For Hx Cardiac Problems: Yes Hx Hypertension: Yes Hx Asthma: Yes Hx COPD: Yes Hx Cancer: No Hx Gastrointestinal Problems: No Hx Neurological Problems: No Review of Systems All Other Systems: negative except mentioned in HPI Physical Exam Vital Signs Date Time Temp Pulse Resp B/P (MAP) Pulse Ox O2 Delivery O2 Flow Rate FiO2 04/17/18 11:36 98.4 89 22 132/93 92 Room Air 04/17/18 14:42 21 04/17/18 21:00 2.0 Sp02 EP Interpretation: reviewed, normal Labs Laboratory Tests Test 04/21/18 05:20 White Blood Count 5.0 K/UL (4.8-10.8) Red Blood Count 5.03 M/UL (4.20-5.40) Hemoglobin 14.8 G/DL (12.0-16.0) Hematocrit 47.1 % (37.0-47.0) H Mean Corpuscular Volume 94 FL (80-99) Mean Corpuscular Hemoglobin 29.4 PG (27.0-31.0) Mean Corpuscular Hemoglobin Concent 31.4 G/DL (32.0-36.0) L Red Cell Distribution Width 15.6 % (11.6-14.8) H Platelet Count 190 K/UL (150-450) Mean Platelet Volume 8.1 FL (6.5-10.1) Neutrophils (%) (Auto) 59.2 % (45.0-75.0) Lymphocytes (%) (Auto) 27.7 % (20.0-45.0) Monocytes (%) (Auto) 12.3 % (1.0-10.0) H Eosinophils (%) (Auto) 0.2 % (0.0-3.0) Basophils (%) (Auto) 0.5 % (0.0-2.0) Sodium Level 143 MMOL/L (136-145) Potassium Level 4.8 MMOL/L (3.5-5.1) Chloride Level 104 MMOL/L (98-107) Carbon Dioxide Level 32 MMOL/L (21-32) Anion Gap 7 mmol/L (5-15) Blood Urea Nitrogen 27 mg/dL (7-18) H Creatinine 1.0 MG/DL (0.55-1.30) Estimat Glomerular Filtration Rate mL/min (>60) Glucose Level 87 MG/DL (74-106) Calcium Level 9.5 MG/DL (8.5-10.1) Magnesium Level 2.0 MG/DL (1.8-2.4) Total Bilirubin 0.4 MG/DL (0.2-1.0) Aspartate Amino Transf (AST/SGOT) 19 U/L (15-37) Alanine Aminotransferase (ALT/SGPT) 35 U/L (12-78) Alkaline Phosphatase 130 U/L (46-116) H Pro-B-Type Natriuretic Peptide 807 pg/mL (0-125) H Total Protein 7.5 G/DL (6.4-8.2) Albumin 3.1 G/DL (3.4-5.0) L Globulin 4.4 g/dL Albumin/Globulin Ratio 0.7 (1.0-2.7) L General Appearance: well appearing, no apparent distress, alert Head: normocephalic EENT: PERRL/EOMI, normal ENT inspection Neck: supple Respiratory: normal breath sounds, no respiratory distress Cardiovascular: normal rate Gastrointestinal: normal inspection, non tender, soft, normal bowel sounds, non -distended Rectal: deferred Genitourinary: no CVA tenderness Musculoskeletal: normal inspection, back normal Neurologic: normal inspection, alert, oriented x3, responsive Psychiatric: normal inspection, judgement/insight normal, memory normal Skin: normal inspection, normal color, no rash, warm/dry, palpation normal, well hydrated Lymphatic: normal inspection, no adenopathy Current Medications Current Medications Medications (Trade) Dose Ordered Sig/Surendra Route PRN Reason Start Time Stop Time Status Last Admin Dose Admin Acetaminophen (Tylenol) 500 mg Q8HR ORAL 04/17/18 22:00 05/17/18 21:59 04/18/18 14:05 Amiodarone HCl (Cordarone) 200 mg EVERY 12 HOURS ORAL 04/19/18 22:30 05/19/18 22:29 04/21/18 08:34 Amlodipine Besylate (Norvasc) 5 mg BID ORAL 04/21/18 09:00 05/21/18 08:59 04/21/18 08:34 Apixaban (Eliquis) 2.5 mg BID ORAL 04/19/18 22:30 05/19/18 22:29 04/21/18 08:35 Budesonide (Pulmicort) 0.25 mg EVERY 12 HOURS HHN 04/20/18 09:00 05/20/18 08:59 04/21/18 09:45 Ceftriaxone Sodium 1 gm/ Dextrose 55 ml @ 110 mls/hr Q24H IVPB 04/17/18 17:00 04/24/18 16:59 04/20/18 17:38 Diazepam (Valium) 2 mg BID PRN ORAL For Anxiety 04/18/18 07:00 04/25/18 06:59 04/20/18 09:31 Docusate Sodium (Colace) 250 mg BID ORAL 04/20/18 09:00 05/20/18 08:59 04/21/18 08:35 Iopamidol (Isovue-300 100ml) 100 ml NOW PRN INJ Radiology Procedure 04/20/18 08:30 04/22/18 08:30 Iopamidol (Isovue-370 150ml) 150 ml NOW PRN INJ Radiology Procedure 04/20/18 09:45 04/22/18 09:38 Levalbuterol HCl (Xopenex) 0.63 mg Q4H PRN HHN Shortness of Breath 04/18/18 14:06 04/23/18 14:05 04/21/18 03:27 Magnesium Hydroxide (Mom) 30 ml DAILYPRN PRN ORAL Constipation 04/20/18 08:45 05/20/18 08:44 Methylprednisolone Sodium Succinate (Solu-MEDROL) 40 mg DAILY IVP 04/20/18 09:00 05/20/18 08:59 04/21/18 08:35 Morphine Sulfate (Morphine Sulfate) 1 mg Q4H PRN IVP Severe pain 04/19/18 06:45 04/26/18 06:44 04/21/18 07:19 Oxycodone/ Acetaminophen (Percocet 5-325) 1 tab Q4H PRN ORAL For Pain 04/17/18 15:30 04/24/18 15:29 04/20/18 01:41 Pantoprazole (Protonix) 40 mg DAILY ORAL 04/18/18 09:00 05/18/18 08:59 04/21/18 08:33 Promethazine HCl/ Codeine (Phenergan with Codeine) 5 ml Q4H PRN ORAL For Cough 04/17/18 15:30 05/17/18 15:29 04/20/18 21:23 GI: Plan Problems: (1) Common bile duct dilation (2) Common bile duct obstruction secondary to biliary stent Plan ERCP for stent removal unable to be performed tomorrow due to endoscope unavailability, will be rescheduled for . cont current plan of care Zofran as needed Bowel regimen Trend LFTs Will prep patient tomorrow. Discussed with Dr. Pedroza. Thank you for this patient referral, we will follow. The patient was seen and examined at bedside and all new and available data was reviewed in the patients chart. I agree with the above findings, impression and plan. (Patient seen earlier today. Signature stamp does not reflect patient encounter time.). - MD Emmy Burkett,[facility] [employer]ER Apr 21, 2018 14:59
[2018-04-21 16:00] VITALS: BP 146/92
[2018-04-21] MEDS: cefTRIAXone 1 GM in D5W 55 ML IVPB SCH (17:21)
--- NOTE | 2018-04-21 18:00 | NUR ---
NURSE NOTES: Pt is denying ERCP procedure. Vasile made aware.
[2018-04-21] MEDS ORDERED: HydrALAZINE 25mg tab ORAL PRN (19:15)
--- NOTE | 2018-04-21 19:50 | NUR ---
HAND-OFF: Report given to Swathi Johnson. Plan of care endorsed.
[2018-04-21 20:00] VITALS: BP 136/92
--- NOTE | 2018-04-21 21:15 | Progress Note ---
DATE: 04/21/2018 CARDIOLOGY PROGRESS NOTE SUBJECTIVE: The patient was seen in GI consultation. The patient is being scheduled for ERCP with stent removal. The patient remains in atrial fibrillation. She has no chest pain and is less short of breath. PHYSICAL EXAMINATION: VITAL SIGNS: Blood pressure 139/94, pulse 93, respiratory rate 18. LUNGS: Diminished breath sounds. No wheezing. HEART: Irregularly irregular rhythm. Normal S1, S2. ABDOMEN: Soft. EXTREMITIES: No edema. LABORATORY AND DIAGNOSTIC DATA: White count 5, hemoglobin 14.8. Potassium 4.8, BUN 27, creatinine 1. Albumin 3.1. Pro-natriuretic peptide 807. IMPRESSION: 1. Biliary stent. 2. Paroxysmal atrial fibrillation. 3. Hypertensive heart disease. 4. Paroxysmal bronchospasm and hypoxia. PLAN: 1. Hold apixaban for upcoming ERCP. 2. Hold amiodarone for now. 3. Diltiazem for rate control. 4. Reassess antihypertensive regimen following ERCP. Moe Leblanc M.D. DR: Valente JOB#: [id number] CC:
[2018-04-22] VITALS: BP 139/104
[2018-04-22 04:00] VITALS: BP 158/100
[2018-04-22] MEDS: Morphine Sulfate 2mg/ml Inj IVP PRN ×2 (04:37→13:27)
[2018-04-22] MEDS: Promethazine/Codeine 5ml UD ORAL PRN ×2 (04:40→09:30)
[2018-04-22] MEDS: Acetaminophen 500mg (ES) tab ORAL SCH ×3 (06:00→22:00)
[2018-04-22 07:59] LABS: BASOPHILS % (AUTO) 0.5 % (0.0-2.0); EOSINOPHILS % (AUTO) 0.3 % (0.0-3.0); HEMATOCRIT 47.3 % (37.0-47.0); HEMOGLOBIN 14.9 G/DL (12.0-16.0); LYMPHOCYTES % (AUTO) 44.8 % (20.0-45.0); MEAN CORPUSCULAR VOLUME 94 FL (80-99); MONOCYTES % (AUTO) 13.1 % (1.0-10.0); NEUTROPHILS % (AUTO) 41.4 % (45.0-75.0); PLATELET COUNT 206 K/UL (150-450); RED BLOOD COUNT 5.03 M/UL (4.20-5.40); RED CELL DISTRIBUTION WIDTH 15.1 % (11.6-14.8); WHITE BLOOD COUNT 5.9 K/UL (4.8-10.8)
[2018-04-22 08:00] VITALS: BP 140/98
[2018-04-22 08:15] LABS: INR 0.9 (0.9-1.1)
[2018-04-22 08:27] LABS: ALANINE AMINOTRANSFERASE 31 U/L (12-78); ALBUMIN 3.1 G/DL (3.4-5.0); ALBUMIN/GLOBULIN RATIO 0.7 (1.0-2.7); ALKALINE PHOSPHATASE 124 U/L (46-116); ANION GAP 8 mmol/L (5-15); ASPARTATE AMINO TRANSFERASE 28 U/L (15-37); BILIRUBIN,TOTAL 0.5 MG/DL (0.2-1.0); BLOOD UREA NITROGEN 22 mg/dL (7-18); CALCIUM 9.7 MG/DL (8.5-10.1); CARBON DIOXIDE 32 MMOL/L (21-32); CHLORIDE 106 MMOL/L (98-107); CREATININE 0.9 MG/DL (0.55-1.30); POTASSIUM 4.4 MMOL/L (3.5-5.1); SODIUM 146 MMOL/L (136-145)
[2018-04-22] MEDS: Docusate 250mg cap ORAL SCH ×4 (09:00→17:28)
[2018-04-22] MEDS: Solu-MEDROL 40mg Inj IVP SCH (09:09)
[2018-04-22] MEDS: dilTIAZem HCl CD 180mg cap ORAL SCH ×2 (09:26→17:26)
--- NOTE | 2018-04-22 09:29 | General Progress Note ---
Assessment/Plan Problem List: (1) COPD exacerbation ICD Codes: J44.1 - Chronic obstructive pulmonary disease with (acute) exacerbation SNOMED: 524081128 (2) Acute bronchitis ICD Codes: J20.9 - Acute bronchitis,unspecified SNOMED: 25146964 (3) Chest pain ICD Codes: R07.9 - Chest pain, unspecified SNOMED: 74587579 Status: stable, progressing Assessment/Plan iv steroids- weaning resp rx abx pain ct reviewed HHN atc a4 gi eval regarding biliary ductal dilation await pt/family decision on ercp dc planning to snf- pt agrees pt/ot Subjective ROS Limited/Unobtainable: No Constitutional: Reports: malaise, weakness HEENT: Reports: no symptoms Cardiovascular: Reports: no symptoms Respiratory: Reports: no symptoms Gastrointestinal/Abdominal: Reports: no symptoms Genitourinary: Reports: no symptoms Neurologic/Psychiatric: Reports: no symptoms Endocrine: Reports: no symptoms Hematologic/Lymphatic: Reports: no symptoms Allergies: Coded Allergies: SETH INHIBITORS (Verified Allergy, Unknown, 03/04/16) All Systems: reviewed and negative except above Subjective no new complaints. no cp/sob. less sob. has not consented to ercp. Objective Last 24 Hour Vital Signs Date Time Temp Pulse Resp B/P (MAP) Pulse Ox O2 Delivery O2 Flow Rate FiO2 04/22/18 09:00 Nasal Cannula 2.0 04/22/18 08:00 99.1 105 20 140/98 (112) 95 04/22/18 04:00 97.9 86 18 158/100 (119) 94 04/22/18 04:00 67 04/22/18 00:00 98.1 94 19 139/104 (116) 94 04/22/18 00:00 91 04/21/18 21:56 85 16 96 Room Air 04/21/18 21:49 85 16 93 Room Air 21 04/21/18 21:00 Nasal Cannula 2.0 04/21/18 20:22 84 20 97 Nasal Cannula 2.0 04/21/18 20:00 97.8 101 18 136/92 (107) 91 04/21/18 20:00 81 04/21/18 19:47 Nasal Cannula 2.0 28 04/21/18 19:47 83 16 95 Nasal Cannula 2.0 28 04/21/18 19:47 95 Nasal Cannula 2.0 28 04/21/18 17:23 85 146/92 04/21/18 16:00 98.9 85 18 146/92 (110) 96 04/21/18 16:00 81 04/21/18 12:00 92 04/21/18 12:00 97.6 93 18 139/94 (109) 100 04/21/18 09:59 80 20 100 Nasal Cannula 2.0 28 04/21/18 09:47 Nasal Cannula 2.0 28 04/21/18 09:47 97 Nasal Cannula 2.0 28 04/21/18 09:45 82 20 97 Nasal Cannula 2.0 28 Intake and Output 04/21/18 04/22/18 19:00 07:00 Intake Total 620 ml Balance 620 ml Intake Oral 620 ml # Voids 4 1 Laboratory Tests 04/22/18 07:40: White Blood Count 5.9, Red Blood Count 5.03, Hemoglobin 14.9, Hematocrit 47.3H, Mean Corpuscular Volume 94, Mean Corpuscular Hemoglobin 29.7, Mean Corpuscular Hemoglobin Concent 31.6L, Red Cell Distribution Width 15.1H, Platelet Count 206 , Mean Platelet Volume 8.5, Neutrophils (%) (Auto) 41.4L, Lymphocytes (%) (Auto ) 44.8, Monocytes (%) (Auto) 13.1H, Eosinophils (%) (Auto) 0.3, Basophils (%) ( Auto) 0.5, Prothrombin Time 9.9, Prothromb Time International Ratio 0.9, Activated Partial Thromboplast Time 24, Sodium Level 146H, Potassium Level 4.4, Chloride Level 106, Carbon Dioxide Level 32, Anion Gap 8, Blood Urea Nitrogen 22H, Creatinine 0.9, Estimat Glomerular Filtration Rate , Glucose Level 88, Calcium Level 9.7, Total Bilirubin 0.5, Aspartate Amino Transf (AST/SGOT) 28, Alanine Aminotransferase (ALT/SGPT) 31, Alkaline Phosphatase 124H, Total Protein 7.6, Albumin 3.1L, Globulin 4.5, Albumin/Globulin Ratio 0.7L Height (Feet): 5 Height (Inches): 4.00 Weight (Pounds): 139 Objective General Appearance: WD/WN, alert Neck: supple Cardiovascular: regular rhythm Respiratory/Chest: expiratory wheezing Abdomen: normal bowel sounds, non tender, soft, no organomegaly Edema: no edema noted Arm (L), no edema noted Arm (R), no edema noted Leg (L), no edema noted Leg (R), no edema noted Pedal (L), no edema noted Pedal (R), no edema noted Generalized Ej Hassan MD Apr 22, 2018 09:29
--- NOTE | 2018-04-22 09:53 | NUR ---
NURSE NOTES: patient is A/A/Ox4, able to make things known. NPO after MN last night and this am patient stated that she refused for the ERCP though she has further question to the GI consultants. Made PMD and GI know, [facility] SAL[employer] MANAGER [place] informed and spoke with the patient. Kept patient NPO and started her on IVF per MD order. Patient was given am meds and phnergan for cough. She is on O2 2L via NC. kept hob elevated and bed is in the lowest position. siderails are up x3. call light is within reach. will cont to monitor.
[2018-04-22] MEDS: Budesonide HHN 0.25mg/2ml ud HHN SCH ×2 (10:32→22:36)
--- NOTE | 2018-04-22 10:48 | GI Progress Note ---
Assessment/Plan Problems: (1) Common bile duct obstruction secondary to biliary stent ICD Codes: K83.1 - Obstruction of bile duct SNOMED: 22978894 (2) Common bile duct dilation ICD Codes: K83.8 - Other specified diseases of biliary tract SNOMED: 428809261 (3) Intrahepatic bile duct dilation ICD Codes: K83.8 - Other specified diseases of biliary tract SNOMED: 507570350 Status: unchanged Status Narrative Discussed with Dr. Pedroza Assessment/Plan ERCP tentatively scheduled for tomorrow if patient agrees. - diet now, NPO @ MN. Zofran as needed Bowel regimen Trend LFTs We will follow with additional recommendations post procedure The patient was seen and examined at bedside and all new and available data was reviewed in the patients chart. I agree with the above findings, impression and plan. (Patient seen earlier today. Signature stamp does not reflect patient encounter time.). - Shawn Pedroza MD Subjective Subjective Patient refusing ERCP at this time, wishes to consult surgeon Objective Last 24 Hour Vital Signs Date Time Temp Pulse Resp B/P (MAP) Pulse Ox O2 Delivery O2 Flow Rate FiO2 04/22/18 10:32 102 16 92 Nasal Cannula 2.0 28 04/22/18 10:32 92 Nasal Cannula 2.0 28 04/22/18 10:32 28 04/22/18 10:32 Nasal Cannula 2.0 28 04/22/18 09:26 105 140/98 04/22/18 09:00 Nasal Cannula 2.0 04/22/18 08:00 99.1 105 20 140/98 (112) 95 04/22/18 04:00 97.9 86 18 158/100 (119) 94 04/22/18 04:00 67 04/22/18 00:00 98.1 94 19 139/104 (116) 94 04/22/18 00:00 91 04/21/18 21:56 85 16 96 Room Air 04/21/18 21:49 85 16 93 Room Air 21 04/21/18 21:00 Nasal Cannula 2.0 04/21/18 20:22 84 20 97 Nasal Cannula 2.0 04/21/18 20:00 97.8 101 18 136/92 (107) 91 04/21/18 20:00 81 04/21/18 19:47 Nasal Cannula 2.0 28 04/21/18 19:47 83 16 95 Nasal Cannula 2.0 28 04/21/18 19:47 95 Nasal Cannula 2.0 28 04/21/18 17:23 85 146/92 04/21/18 16:00 98.9 85 18 146/92 (110) 96 04/21/18 16:00 81 04/21/18 12:00 92 04/21/18 12:00 97.6 93 18 139/94 (109) 100 Intake and Output 04/21/18 04/22/18 19:00 07:00 Intake Total 620 ml Balance 620 ml Intake Oral 620 ml # Voids 4 1 Laboratory Tests Test 04/22/18 07:40 White Blood Count 5.9 K/UL (4.8-10.8) Red Blood Count 5.03 M/UL (4.20-5.40) Hemoglobin 14.9 G/DL (12.0-16.0) Hematocrit 47.3 % (37.0-47.0) H Mean Corpuscular Volume 94 FL (80-99) Mean Corpuscular Hemoglobin 29.7 PG (27.0-31.0) Mean Corpuscular Hemoglobin Concent 31.6 G/DL (32.0-36.0) L Red Cell Distribution Width 15.1 % (11.6-14.8) H Platelet Count 206 K/UL (150-450) Mean Platelet Volume 8.5 FL (6.5-10.1) Neutrophils (%) (Auto) 41.4 % (45.0-75.0) L Lymphocytes (%) (Auto) 44.8 % (20.0-45.0) Monocytes (%) (Auto) 13.1 % (1.0-10.0) H Eosinophils (%) (Auto) 0.3 % (0.0-3.0) Basophils (%) (Auto) 0.5 % (0.0-2.0) Prothrombin Time 9.9 SEC (9.30-11.50) Prothromb Time International Ratio 0.9 (0.9-1.1) Activated Partial Thromboplast Time 24 SEC (23-33) Sodium Level 146 MMOL/L (136-145) H Potassium Level 4.4 MMOL/L (3.5-5.1) Chloride Level 106 MMOL/L (98-107) Carbon Dioxide Level 32 MMOL/L (21-32) Anion Gap 8 mmol/L (5-15) Blood Urea Nitrogen 22 mg/dL (7-18) H Creatinine 0.9 MG/DL (0.55-1.30) Estimat Glomerular Filtration Rate mL/min (>60) Glucose Level 88 MG/DL (74-106) Calcium Level 9.7 MG/DL (8.5-10.1) Total Bilirubin 0.5 MG/DL (0.2-1.0) Aspartate Amino Transf (AST/SGOT) 28 U/L (15-37) Alanine Aminotransferase (ALT/SGPT) 31 U/L (12-78) Alkaline Phosphatase 124 U/L (46-116) H Total Protein 7.6 G/DL (6.4-8.2) Albumin 3.1 G/DL (3.4-5.0) L Globulin 4.5 g/dL Albumin/Globulin Ratio 0.7 (1.0-2.7) L Height (Feet): 5 Height (Inches): 4.00 Weight (Pounds): 139 General Appearance: WD/WN, no apparent distress, alert Cardiovascular: normal rate Respiratory/Chest: normal breath sounds, no respiratory distress Abdominal Exam: normal bowel sounds, non tender, soft Extremities: normal range of motion, non-tender Makenzie Booth NP Apr 22, 2018 10:48
[2018-04-22] MEDS: D5 1/2NS w/KCl 20mEq 1,000 ML IV SCH (11:06)
--- NOTE | 2018-04-22 11:16 | NUR ---
NURSE NOTES: consent signed, date and timed. IVF initiated. Kept NPO. informed GI. will cont to monitor.
[2018-04-22 12:03] VITALS: BP 145/91
--- NOTE | 2018-04-22 12:09 | NUR ---
NURSE NOTES: per Dr Pedroza ERCP will be rescheduled tomorrow. resume diet for lunch today and keep NPO after MN tonite. will cont to monitor.
--- NOTE | 2018-04-22 13:23 | NUR ---
HAND-OFF: Report given to Jeramie.
[2018-04-22 16:00] VITALS: BP 115/69
[2018-04-22] MEDS: Levalbuterol Inh UD 1.25mg/0.5ml HHN PRN (16:19)
[2018-04-22] MEDS: cefTRIAXone 1 GM in D5W 55 ML IVPB SCH (17:25)
--- NOTE | 2018-04-22 18:33 | NUR ---
CASE MANAGEMENT: REVIEW SI: ACS T 98.4 HR 85 RR 18 BP 145/91 SAT 94% NC/2L NA 146 BUN 22 ALK PHOS 124 IS: SOLU MEDROL IV QD CARDIZEM PO QD D5 1/2 NS w/KCl IVF @75ML/HR CEFTRIAXONE IV Q24HR TELEMETRY UNIT STATUS DCP: PATIENT IS FROM HOME. DC TO SNF
--- NOTE | 2018-04-22 18:43 | NUR ---
CASE MANAGEMENT: DCPNOTE PER MD EVANGELISTA PATIENT REFERRED TO [facility] [phone] WILL FOLLOW UP Addendum: 04/22/18 at 1855 by RIGO AHMADI CM PER ADRIANA @ [facility] [phone] PATIENT IS ACCEPTED TO THE FACILITY ROOM ASSIGNMENT: 17A
--- NOTE | 2018-04-22 19:29 | NUR ---
HAND-OFF: Report given to [place].
--- NOTE | 2018-04-22 19:35 | NUR ---
NURSE NOTES: patient received. Patient in no acute distress at this time. patient complains of no pain at this time. patient awake alert and oriented x3. IV intact patent and asymptomatic. bed in lowest position and locked. bed alarm on. call light within reach. will continue to monitor.
[2018-04-22 20:00] VITALS: BP 123/74
[2018-04-23] VITALS: BP 122/74
[2018-04-23] MEDS: D5 1/2NS w/KCl 20mEq 1,000 ML IV SCH ×2 (00:45→16:35)
[2018-04-23 04:00] VITALS: BP 128/73
[2018-04-23] MEDS: Acetaminophen 500mg (ES) tab ORAL SCH ×4 (06:00→19:16)
[2018-04-23] MEDS: Levalbuterol Inh UD 1.25mg/0.5ml HHN PRN (06:27)
[2018-04-23 07:22] LABS: BASOPHILS % (AUTO) 0.4 % (0.0-2.0); EOSINOPHILS % (AUTO) 0.2 % (0.0-3.0); HEMATOCRIT 41.2 % (37.0-47.0); HEMOGLOBIN 13.1 G/DL (12.0-16.0); LYMPHOCYTES % (AUTO) 32.5 % (20.0-45.0); MEAN CORPUSCULAR VOLUME 94 FL (80-99); NEUTROPHILS % (AUTO) 56.9 % (45.0-75.0); PLATELET COUNT 172 K/UL (150-450); RED CELL DISTRIBUTION WIDTH 15.4 % (11.6-14.8); WHITE BLOOD COUNT 6.5 K/UL (4.8-10.8)
--- NOTE | 2018-04-23 07:26 | NUR ---
HAND-OFF: Report given to angelina chou.
[2018-04-23 07:39] LABS: INR 0.9 (0.9-1.1)
[2018-04-23 07:43] LABS: ALANINE AMINOTRANSFERASE 24 U/L (12-78); ALBUMIN 2.8 G/DL (3.4-5.0); ALBUMIN/GLOBULIN RATIO 0.7 (1.0-2.7); ALKALINE PHOSPHATASE 100 U/L (46-116); ANION GAP 6 mmol/L (5-15); ASPARTATE AMINO TRANSFERASE 17 U/L (15-37); BILIRUBIN,TOTAL 0.4 MG/DL (0.2-1.0); BLOOD UREA NITROGEN 22 mg/dL (7-18); CALCIUM 8.9 MG/DL (8.5-10.1); CARBON DIOXIDE 31 MMOL/L (21-32); CHLORIDE 107 MMOL/L (98-107); CREATININE 0.9 MG/DL (0.55-1.30); POTASSIUM 4.9 MMOL/L (3.5-5.1); SODIUM 144 MMOL/L (136-145)
--- NOTE | 2018-04-23 07:45 | Progress Note ---
DATE: 04/22/2018 CARDIOLOGY PROGRESS NOTE SUBJECTIVE: The patient refuses an ERCP today for removal of biliary stent. She denies any abdominal pain. OBJECTIVE: VITAL SIGNS: Blood pressure is trending up at 140/98, heart rate 105, and respiratory rate 20. LUNGS: Diminished breath sounds. HEART: Irregularly irregular rhythm. Normal S1 and S2. ABDOMEN: Soft. No focal tenderness. No edema. IMPRESSION: 1. Dilated biliary duct with biliary stent. 2. Dehydration, hyponatremia. 3. Mild protein-calorie malnutrition. 4. Acute on chronic diastolic congestive heart failure. 5. Paroxysmal atrial fibrillation. 6. Chronic obstructive pulmonary disease with exacerbation. 7. Pleuritic chest pain. PLAN: 1. Hypotonic IV fluids. 2. No plans for ERCP at this time. 3. Titrate antihypertensives. 4. Resume cardioembolic prophylaxis with apixaban. 5. Titrate antihypertensives based on clinical parameters. 6. Continue diltiazem for rate control. Moe Leblanc M.D. DR: DEBRA JOB#: [id number] CC:
[2018-04-23 08:00] VITALS: BP 107/46
--- NOTE | 2018-04-23 08:10 | General Progress Note ---
Assessment/Plan Problem List: (1) COPD exacerbation ICD Codes: J44.1 - Chronic obstructive pulmonary disease with (acute) exacerbation SNOMED: 418810882 (2) Acute bronchitis ICD Codes: J20.9 - Acute bronchitis,unspecified SNOMED: 14569392 (3) Chest pain ICD Codes: R07.9 - Chest pain, unspecified SNOMED: 75945736 Assessment/Plan iv steroids- weaning resp rx abx pain ct reviewed HHN atc a4 ercp dc planning to snf- pt agrees pt/ot Subjective ROS Limited/Unobtainable: No Constitutional: Reports: malaise, weakness HEENT: Reports: no symptoms Respiratory: Reports: cough Gastrointestinal/Abdominal: Reports: no symptoms Genitourinary: Reports: no symptoms Neurologic/Psychiatric: Reports: no symptoms Endocrine: Reports: no symptoms Hematologic/Lymphatic: Reports: no symptoms Allergies: Coded Allergies: SETH INHIBITORS (Verified Allergy, Unknown, 03/04/16) All Systems: reviewed and negative except above Subjective no new complaints. no cp/sob. less sob. npo for ercp Objective Last 24 Hour Vital Signs Date Time Temp Pulse Resp B/P (MAP) Pulse Ox O2 Delivery O2 Flow Rate FiO2 04/23/18 07:26 97 Nasal Cannula 2.0 28 04/23/18 07:26 Nasal Cannula 2.0 28 04/23/18 06:37 51 20 99 Nasal Cannula 2.0 28 04/23/18 06:27 60 20 97 Nasal Cannula 2.0 28 04/23/18 04:00 82 04/23/18 04:00 97.9 58 17 128/73 (91) 96 04/23/18 00:00 98.6 58 17 122/74 (90) 94 04/23/18 00:00 57 04/22/18 22:51 73 18 99 Room Air 04/22/18 22:36 93 Nasal Cannula 2.0 28 04/22/18 22:36 86 18 93 Nasal Cannula 2.0 28 04/22/18 22:36 28 04/22/18 22:36 Nasal Cannula 2.0 28 04/22/18 21:00 Nasal Cannula 2.0 04/22/18 20:00 74 04/22/18 20:00 98.0 86 16 123/74 (90) 96 04/22/18 17:26 69 115/69 2/13/19 16:19 69 16 96 Nasal Cannula 2.0 28 04/22/18 16:00 98.4 67 18 115/69 (84) 94 04/22/18 15:58 70 04/22/18 13:57 98.4 04/22/18 12:03 98.4 85 18 145/91 (109) 94 04/22/18 11:44 77 04/22/18 10:52 82 16 99 Room Air 04/22/18 10:32 102 16 92 Nasal Cannula 2.0 28 04/22/18 10:32 92 Nasal Cannula 2.0 28 04/22/18 10:32 28 04/22/18 10:32 Nasal Cannula 2.0 28 04/22/18 09:26 105 140/98 04/22/18 09:00 Nasal Cannula 2.0 Intake and Output 04/22/18 04/23/18 19:00 07:00 Intake Total 510 ml 150 ml Balance 510 ml 150 ml Intake Oral 360 ml 150 ml IV Total 150 ml # Voids 3 Laboratory Tests 04/23/18 06:53: White Blood Count 6.5, Red Blood Count 4.40, Hemoglobin 13.1, Hematocrit 41.2, Mean Corpuscular Volume 94, Mean Corpuscular Hemoglobin 29.9, Mean Corpuscular Hemoglobin Concent 31.9L, Red Cell Distribution Width 15.4H, Platelet Count 172 , Mean Platelet Volume 8.0, Neutrophils (%) (Auto) 56.9, Lymphocytes (%) (Auto) 32.5, Monocytes (%) (Auto) 10.0, Eosinophils (%) (Auto) 0.2, Basophils (%) (Auto ) 0.4, Prothrombin Time 9.9, Prothromb Time International Ratio 0.9, Activated Partial Thromboplast Time 23, Sodium Level 144, Potassium Level 4.9, Chloride Level 107, Carbon Dioxide Level 31, Anion Gap 6, Blood Urea Nitrogen 22H, Creatinine 0.9, Estimat Glomerular Filtration Rate , Glucose Level 99, Calcium Level 8.9, Total Bilirubin 0.4, Aspartate Amino Transf (AST/SGOT) 17, Alanine Aminotransferase (ALT/SGPT) 24, Alkaline Phosphatase 100, Total Protein 6.8, Albumin 2.8L, Globulin 4.0, Albumin/Globulin Ratio 0.7L Height (Feet): 5 Height (Inches): 4.00 Weight (Pounds): 135 Objective General Appearance: WD/WN, alert Neck: supple Cardiovascular: regular rhythm Respiratory/Chest: expiratory wheezing Abdomen: normal bowel sounds, non tender, soft, no organomegaly Edema: no edema noted Arm (L), no edema noted Arm (R), no edema noted Leg (L), no edema noted Leg (R), no edema noted Pedal (L), no edema noted Pedal (R), no edema noted Generalized Ej Hassan MD Apr 23, 2018 08:09
[2018-04-23] MEDS: Docusate 250mg cap ORAL SCH ×2 (10:13→18:00)
[2018-04-23] MEDS: Solu-MEDROL 40mg Inj IVP SCH (10:13)
[2018-04-23] MEDS: dilTIAZem HCl CD 180mg cap ORAL SCH ×2 (10:15→18:34)
[2018-04-23] MEDS: Budesonide HHN 0.25mg/2ml ud HHN SCH ×2 (10:16→21:09)
[2018-04-23 12:00] VITALS: BP 132/69
--- NOTE | 2018-04-23 13:11 | GI Progress Note ---
Assessment/Plan Problems: (1) Common bile duct obstruction secondary to biliary stent ICD Codes: K83.1 - Obstruction of bile duct SNOMED: 95076246 (2) Common bile duct dilation ICD Codes: K83.8 - Other specified diseases of biliary tract SNOMED: 249870442 (3) Intrahepatic bile duct dilation ICD Codes: K83.8 - Other specified diseases of biliary tract SNOMED: 764726959 Status: stable Status Narrative Discussed with Dr. Pedroza. Assessment/Plan we were able to obtain the old endoscopy records from Dr. Burr, patient had metallic stent placed in 2006 which is permanent. we will cancel ERCP given no transaminitis, okay for DC per GI standpoint advance diet Zofran as needed Bowel regimen Trend LFTs GI outpatient follow up The patient was seen and examined at bedside and all new and available data was reviewed in the patients chart. I agree with the above findings, impression and plan. (Patient seen earlier today. Signature stamp does not reflect patient encounter time.). - Shawn Pedroza MD Objective Last 24 Hour Vital Signs Date Time Temp Pulse Resp B/P (MAP) Pulse Ox O2 Delivery O2 Flow Rate FiO2 04/23/18 10:26 77 18 95 Nasal Cannula 2.0 28 04/23/18 10:16 28 04/23/18 10:16 85 18 97 Nasal Cannula 2.0 28 04/23/18 10:15 64 107/46 04/23/18 08:00 98.4 64 16 107/46 (66) 92 04/23/18 07:26 97 Nasal Cannula 2.0 28 04/23/18 07:26 Nasal Cannula 2.0 28 04/23/18 06:37 51 20 99 Nasal Cannula 2.0 28 04/23/18 06:27 60 20 97 Nasal Cannula 2.0 28 04/23/18 04:00 82 04/23/18 04:00 97.9 58 17 128/73 (91) 96 04/23/18 00:00 98.6 58 17 122/74 (90) 94 04/23/18 00:00 57 04/22/18 22:51 73 18 99 Room Air 04/22/18 22:36 93 Nasal Cannula 2.0 28 04/22/18 22:36 86 18 93 Nasal Cannula 2.0 28 04/22/18 22:36 28 04/22/18 22:36 Nasal Cannula 2.0 28 04/22/18 21:00 Nasal Cannula 2.0 04/22/18 20:00 74 04/22/18 20:00 98.0 86 16 123/74 (90) 96 04/22/18 17:26 69 115/69 04/22/18 16:19 69 16 96 Nasal Cannula 2.0 28 04/22/18 16:00 98.4 67 18 115/69 (84) 94 04/22/18 15:58 70 04/22/18 13:57 98.4 Intake and Output 04/22/18 04/23/18 19:00 07:00 Intake Total 510 ml 150 ml Balance 510 ml 150 ml Intake Oral 360 ml 150 ml IV Total 150 ml # Voids 3 Laboratory Tests Test 04/23/18 06:53 White Blood Count 6.5 K/UL (4.8-10.8) Red Blood Count 4.40 M/UL (4.20-5.40) Hemoglobin 13.1 G/DL (12.0-16.0) Hematocrit 41.2 % (37.0-47.0) Mean Corpuscular Volume 94 FL (80-99) Mean Corpuscular Hemoglobin 29.9 PG (27.0-31.0) Mean Corpuscular Hemoglobin Concent 31.9 G/DL (32.0-36.0) L Red Cell Distribution Width 15.4 % (11.6-14.8) H Platelet Count 172 K/UL (150-450) Mean Platelet Volume 8.0 FL (6.5-10.1) Neutrophils (%) (Auto) 56.9 % (45.0-75.0) Lymphocytes (%) (Auto) 32.5 % (20.0-45.0) Monocytes (%) (Auto) 10.0 % (1.0-10.0) Eosinophils (%) (Auto) 0.2 % (0.0-3.0) Basophils (%) (Auto) 0.4 % (0.0-2.0) Prothrombin Time 9.9 SEC (9.30-11.50) Prothromb Time International Ratio 0.9 (0.9-1.1) Activated Partial Thromboplast Time 23 SEC (23-33) Sodium Level 144 MMOL/L (136-145) Potassium Level 4.9 MMOL/L (3.5-5.1) Chloride Level 107 MMOL/L (98-107) Carbon Dioxide Level 31 MMOL/L (21-32) Anion Gap 6 mmol/L (5-15) Blood Urea Nitrogen 22 mg/dL (7-18) H Creatinine 0.9 MG/DL (0.55-1.30) Estimat Glomerular Filtration Rate mL/min (>60) Glucose Level 99 MG/DL (74-106) Calcium Level 8.9 MG/DL (8.5-10.1) Total Bilirubin 0.4 MG/DL (0.2-1.0) Aspartate Amino Transf (AST/SGOT) 17 U/L (15-37) Alanine Aminotransferase (ALT/SGPT) 24 U/L (12-78) Alkaline Phosphatase 100 U/L (46-116) Total Protein 6.8 G/DL (6.4-8.2) Albumin 2.8 G/DL (3.4-5.0) L Globulin 4.0 g/dL Albumin/Globulin Ratio 0.7 (1.0-2.7) L Height (Feet): 5 Height (Inches): 4.00 Weight (Pounds): 135 General Appearance: WD/WN, no apparent distress, alert Cardiovascular: normal rate Respiratory/Chest: normal breath sounds, no respiratory distress Abdominal Exam: normal bowel sounds, non tender, soft Extremities: normal range of motion, non-tender Makenzie Booth NP Apr 23, 2018 13:11
[2018-04-23 16:00] VITALS: BP 118/62
[2018-04-23] MEDS: cefTRIAXone 1 GM in D5W 55 ML IVPB SCH (16:35)
--- NOTE | 2018-04-23 19:20 | NUR ---
HAND-OFF: Report given to ALEXANDRU RUSHING.
--- NOTE | 2018-04-23 19:21 | NUR ---
Got report from Doris RUSHING.Pt in stable condition. No distress noted. Bed in low and locked position, call llight within reach, bedside table within reach. continue to monitor.
[2018-04-23 20:00] VITALS: BP 129/74
--- NOTE | 2018-04-23 20:00 | NUR ---
NURSE NOTES: Pt refusing continuous IV fluids. Says she wants to get up during the night and does not want to keep calling the nurses.Continue to monitor.
[2018-04-24] VITALS: BP 135/71
--- NOTE | 2018-04-24 01:00 | Progress Note ---
CARDIOLOGY PROGRESS NOTE DATE: 04/23/2018 SUBJECTIVE: The patient's ERCP was canceled. Records were obtained and confirmed a metallic biliary stent placed in 2006, which is a permanent device. OBJECTIVE: VITAL SIGNS: Blood pressure 107/46, pulse 64, and respirations 18. Afebrile. NECK: Supple. LUNGS: Clear. CARDIAC: Irregular. Normal S1, S2. ABDOMEN: Soft. EXTREMITIES: No focal tenderness or edema. LABORATORY DATA: White count 6.5, hemoglobin 13. Sodium 144, potassium 4.9, bicarb 31, BUN 22, and creatinine 0.9. IMPRESSION: 1. Chronic obstructive pulmonary disease with exacerbation. 2. Paroxysmal atrial fibrillation. 3. Biliary stent. 4. Moderate protein-calorie malnutrition. 5. Paroxysmal bronchospasm - requiring inhaled bronchodilator by HHN. 6. Dehydration. 7. Hypernatremia, resolved. 8. Prerenal azotemia, improved. 9. Osteoarthritis. PLAN: 1. Respiratory hygiene. 2. No endoscopic procedure planned. 3. Continue hydration with IVF until oral intake better. 4. Resume anticoagulation for cardioembolic prophylaxis. 5. Discharge planning. Will need hand held nebulizer (HHD) for delivery of inhaled bronchodilator therapy. Xopenex unit dose as ordered. Moe Leblanc M.D. DR: CESAR JOB#: [id number] CC: LIZ
[2018-04-24] MEDS: oxyCODONE HCL/Acetaminophen 5/325mg ORAL PRN ×2 (01:49→09:24)
[2018-04-24] MEDS: D5 1/2NS w/KCl 20mEq 1,000 ML IV SCH (03:00)
[2018-04-24 04:00] VITALS: BP 136/76
--- NOTE | 2018-04-24 07:20 | NUR ---
HAND-OFF: Report given to Doris Echevarria. endorsed plan of care.
--- NOTE | 2018-04-24 07:30 | NUR ---
Received bedside report from Triston. Pt A/O x4, ambulates to restroom, reported some pain. Bed on lowest position with brakes on. Call light within reach. IV site intact and patent no sign of infection fluids are not running pt refuse.
[2018-04-24 08:00] VITALS: BP 158/90
[2018-04-24] MEDS: Budesonide HHN 0.25mg/2ml ud HHN SCH ×2 (08:32→08:40)
[2018-04-24] MEDS: Docusate 250mg cap ORAL SCH (09:00)
[2018-04-24] MEDS ORDERED: Eliquis 2.5mg tablet ORAL SCH (09:00)
[2018-04-24] MEDS: Solu-MEDROL 40mg Inj IVP SCH (09:10)
[2018-04-24] MEDS: dilTIAZem HCl CD 180mg cap ORAL SCH (09:10)
--- NOTE | 2018-04-24 09:40 | General Progress Note ---
Assessment/Plan Problem List: (1) ACS (acute coronary syndrome) ICD Codes: I24.9 - Acute ischemic heart disease, unspecified SNOMED: 316446549 (2) Intrahepatic bile duct dilation ICD Codes: K83.8 - Other specified diseases of biliary tract SNOMED: 576328137 (3) Chest pain ICD Codes: R07.9 - Chest pain, unspecified SNOMED: 82039147 (4) COPD exacerbation ICD Codes: J44.1 - Chronic obstructive pulmonary disease with (acute) exacerbation SNOMED: 591033941 Assessment/Plan we were able to obtain the old endoscopy records from Dr. Burr, patient had metallic stent placed in 2006 which is permanent. we will cancel ERCP given no transaminitis, okay for DC per GI standpoint Zofran as needed Bowel regimen Trend LFTs GI outpatient follow up Subjective ROS Limited/Unobtainable: Yes Allergies: Coded Allergies: SETH INHIBITORS (Verified Allergy, Unknown, 03/04/16) Subjective no event over night Objective Last 24 Hour Vital Signs Date Time Temp Pulse Resp B/P (MAP) Pulse Ox O2 Delivery O2 Flow Rate FiO2 04/24/18 09:10 56 158/90 04/24/18 08:42 69 20 99 Room Air 21 04/24/18 08:34 36 04/24/18 08:34 73 16 94 Nasal Cannula 2.0 28 04/24/18 07:26 96 Nasal Cannula 2.0 28 04/24/18 07:26 Nasal Cannula 2.0 28 04/24/18 04:00 98.1 59 18 136/76 (96) 96 04/24/18 04:00 53 04/24/18 02:20 98.0 04/24/18 00:00 98.0 60 18 135/71 (92) 96 04/24/18 00:00 54 04/23/18 21:21 76 18 Nasal Cannula 2.0 28 04/23/18 21:19 73 18 98 Nasal Cannula 2.0 28 04/23/18 21:09 71 18 95 Nasal Cannula 2.0 28 04/23/18 21:00 Nasal Cannula 2.0 04/23/18 20:21 Nasal Cannula 2.0 28 04/23/18 20:21 95 Nasal Cannula 2.0 28 04/23/18 20:00 61 04/23/18 20:00 98.2 75 18 129/74 (92) 95 04/23/18 18:34 73 118/62 04/23/18 17:04 97.7 04/23/18 17:04 98.4 04/23/18 16:00 72 04/23/18 16:00 97.7 73 16 118/62 (80) 94 04/23/18 12:00 72 04/23/18 12:00 97.2 72 17 132/69 (90) 96 04/23/18 10:26 77 18 95 Nasal Cannula 2.0 28 04/23/18 10:16 28 04/23/18 10:16 85 18 97 Nasal Cannula 2.0 28 04/23/18 10:15 64 107/46 Intake and Output 04/23/18 04/24/18 19:00 07:00 Intake Total 240 ml Balance 240 ml Intake Oral 240 ml # Voids 1 4 Height (Feet): 5 Height (Inches): 4.00 Weight (Pounds): 135 General Appearance: alert EENT: normal ENT inspection Neck: supple Cardiovascular: normal rate Respiratory/Chest: decreased breath sounds Abdomen: normal bowel sounds, non tender, soft Extremities: non-tender Shawn Pedroza MD Apr 24, 2018 09:40
[2018-04-24 12:00] VITALS: BP 150/78
--- NOTE | 2018-04-24 13:56 | NUR ---
Social Service Note Referral faxed to [facility] with prescriptions for Hand Held Nebulizer [phone] (p) [phone] (f)Dianna. Patient orders being reviewed. Will follow up. Addendum: 04/24/18 at 1542 by ESME GREENE Faxed additional information to [facility]. Dianna also indicated she would contact MD office for additional documentation if needed.
--- NOTE | 2018-04-24 22:45 | Discharge Summary ---
DATE OF ADMISSION: 04/17/2018 DATE OF DISCHARGE: 04/24/2018 ADMISSION DIAGNOSES: 1. Chest pain. 2. COPD exacerbation. 3. Possible acute coronary syndrome. 4. Rule out pneumonia. DISCHARGE DIAGNOSES: 1. Chest pain. 2. COPD exacerbation. 3. Possible acute coronary syndrome. 4. Rule out pneumonia. BRIEF HISTORY AND HOSPITAL COURSE: The patient was admitted with complaints of shortness of breath. She was diagnosed with COPD exacerbation. She received intravenous steroids and respiratory treatments [id number]. She had slow improvement. She was started on antibiotic therapy for bronchitis. The patient had a CAT scan of the abdomen for evaluation of abdominal pain. She was noted to have biliary dilatation. She was seen by GI, and was found that the patient has a permanent biliary stent. On discharge, she was stable. It was recommended that she go to a retirement facility for rehabilitation, but she declined to be discharged home with close outpatient followup. DISCHARGE MEDICATIONS: Please see discharge list for discharge medications. DIET: Cardiac diet. ACTIVITIES: Ad-coy. Ej Hassan M.D. DR: ZAINAB JOB#: [id number] CC:
--- NOTE | 2018-04-24 23:45 | Progress Note ---
CARDIOLOGY PROGRESS NOTE DATE: 04/24/2018 SUBJECTIVE: The patient is refusing the halfway facility and wants to convalesce at home. No chest pain or shortness of breath, but she has not been very ambulatory. OBJECTIVE: VITAL SIGNS: Blood pressure 158/90, pulse 56, and respirations 20. LUNGS: Diminished breath sounds. CARDIAC: Irregularly irregular. Normal S1, S2. ABDOMEN: Soft and nontender. EXTREMITIES: No edema. IMPRESSION: 1. Chronic obstructive pulmonary disease. 2. Paroxysmal bronchospasm. 3. Paroxysmal atrial fibrillation. 4. Arteriosclerotic cardiovascular disease. 5. Hypertensive heart disease. 6. Pleuritic chest pain. 7. Asymptomatic bradyarrhythmia. 8. Metallic biliary stent, which is in stable position. PLAN: 1. No plans for removal of metallic stent. 2. Continue cardioembolic prophylaxis with apixaban. 3. Taper steroids and discontinue bronchodilators. 4. Maintain current antihypertensives, titrate as an outpatient. Moe Leblanc M.D. DR: CESAR JOB#: [id number] CC:
== END 2018-04-24 13:30 | disposition home or self-care (01) | DRG 190 ==
LOC: EMR 11:55 → 2E 12:11 → OBSVTOIN 12:11 → EDBEDREQ 13:25
DX: J44.1 Chronic obstructive pulmonary disease with (acute) exacerbation (principal); K83.1 Obstruction of bile duct; N17.9 Acute kidney failure, unspecified; I24.9 Acute ischemic heart disease, unspecified; I50.32 Chronic diastolic (congestive) heart failure; G93.40 Encephalopathy, unspecified; E87.1 Hypo-osmolality and hyponatremia; E44.1 Mild protein-calorie malnutrition; J44.0 Chronic obstructive pulmonary disease with (acute) lower respiratory infection; J20.9 Acute bronchitis, unspecified; I10 Essential (primary) hypertension; Z88.8 Allergy status to other drugs, medicaments and biological substances; R09.02 Hypoxemia; I11.0 Hypertensive heart disease with heart failure; R07.81 Pleurodynia; I48.0 Paroxysmal atrial fibrillation; E86.0 Dehydration; K83.8 Other specified diseases of biliary tract; I25.10 Atherosclerotic heart disease of native coronary artery without angina pectoris; R00.1 Bradycardia, unspecified; M19.90 Unspecified osteoarthritis, unspecified site
CPT/HCPCS: 36415; 36600; 70551; 71045; 71275; 76700; 80048; 80053; 82150; 82306; 82550; 82553; 82607; 82746; 82803; 83690; 83735; 83880; 84443; 84484; 85007; 85025; 85610; 85730; 86710; 93005; 93306; 93970; 94640; 94664; 94760; 96374; 96375; 99291; J2405; J7620

== ENCOUNTER 2018-05-14 16:01 | Inpatient (IN) | payer MEDICARE, MEDICAID ==
[~2018-05-14] VITALS: Ht 162.6 cm; Wt 62.6 kg
[~2018-05-14 16:01] MED LIST changes: +PERCOCET 5-3251 EACH ORAL
[2018-05-14 16:10] VITALS: BP 156/132
--- NOTE | 2018-05-14 16:10 | NUR ---
ED Nurse Note: PT WALKED IN TO ER TODAY FROM HOME. AOX4. PT C/O BILATERAL LEG SWELLING X 2 DAYS AGO. PT DENIES PAIN. ON INITIAL ASSESSMENT, PT IS SOB, RR35 @ 76% O2 SAT ON RA. PT PLACED ON NONREBREATHER MASK ON 15L O2. WHEEZING AUSCULTATED IN ALL LOBES WELL CRACKLES TO BILATERAL LOWER LOBES. RR20 @ 100% O2 SAT ON NONREBREATHER MASK. PT PRESENTS WITH NONPITTING EDEMA TO BILATERAL LOWER EXTREMITY.
[2018-05-14] MEDS ORDERED: Solu-MEDROL 125mg Inj IVP ONE (16:30)
[2018-05-14] MEDS ORDERED: Albuterol/Ipratropium 3ml neb HHN SCH (16:30)
--- NOTE | 2018-05-14 16:30 | NUR ---
ED Nurse Note: RT AT BEDSIDE
--- NOTE | 2018-05-14 16:40 | NUR ---
ED Nurse Note: RT ATTEMPTING TO PLACE PT ON BIPAP. PT RESISTIVE TO BIPAP AND PULLING AT MASK. BIPAP NOT PLACED ON PT. DR. SURAJ JAVED.
--- NOTE | 2018-05-14 16:45 | NUR ---
RESPIRATORY NOTE: Received pt on non rebreather 15L 100% FiO2, pt complained SOB, in resp distress, saturated low 70% when come in to ER. RN put pt on 15L non rebreather, saturates at 100%, tachypneic RR 25 bpm, shallow breathing. Storm expiratory rhonchi wheeze B/S heard upon auscultation. Placed pt on Bipap 10/5- back up rate 16- 100% FiO2. Foam tapes applied on forehead, chin and cheeks upon the mask. Alarms are set and audible, Bipap is plugged into the red outlet. No redness or skin breakdown noted. Pt took off the Bipap, refused to put it back on stated she doesn't like the pressure. Inform Dr. Mathew about it. Dr. Mathew said give breathing tx first then get ABG to see if pt need to be on Bipap on not. Will carry out the order.
--- NOTE | 2018-05-14 17:04 | Diagnostic Imaging Report ---
Indication: Shortness of breath Technique: One view of the chest Comparison: 04/17/2018 Findings: There is slight blunting of the right costophrenic sulcus. Some atelectasis is seen at the left lateral lung base. There is minimal central bronchial wall thickening. Lungs pleural spaces are otherwise clear. The heart is borderline enlarged. The aorta is tortuous and ectatic. Right pulmonary hilar vascular prominence is again demonstrated, previously evaluated with CT There is surgical hardware in the lower thoracic spine again demonstrated Impression: Possible small right pleural effusion Left basilar atelectasis No acute process otherwise
[2018-05-14 17:10] LABS: BASOPHILS % (AUTO) 0.7 % (0.0-2.0); EOSINOPHILS % (AUTO) 0.4 % (0.0-3.0); HEMOGLOBIN 11.5 G/DL (12.0-16.0); LYMPHOCYTES % (AUTO) 27.1 % (20.0-45.0); MEAN CORPUSCULAR VOLUME 95 FL (80-99); MONOCYTES % (AUTO) 10.4 % (1.0-10.0); NEUTROPHILS % (AUTO) 61.3 % (45.0-75.0); PLATELET COUNT 237 K/UL (150-450); RED BLOOD COUNT 3.77 M/UL (4.20-5.40); RED CELL DISTRIBUTION WIDTH 15.7 % (11.6-14.8); WHITE BLOOD COUNT 7.1 K/UL (4.8-10.8)
--- NOTE | 2018-05-14 17:14 | Emergency Room Report ---
History of Present Illness General Chief Complaint: Dyspnea/Respdistress Source: Patient, Medical Record Present Illness HPI Patient is a 77-year-old female who presented after increased respiratory distress. Patient prior history of lung disease. She was noted to have increased lower extremity swelling.She did have gradual onset of symptoms of the past few days of increased leg swelling. Patient had prior history of cardiac disease. Patient had prior history of COPD. She presented by walk-in. Patient was noted to have significant dyspnea and history is limited by patient's difficulty breathing Allergies: Coded Allergies: SETH INHIBITORS (Verified Allergy, Unknown, 03/04/16) Patient History Past Medical History: see triage record Reviewed Nursing Documentation: PMH: Agreed; PSxH: Agreed Nursing Documentation-PMH Past Medical History: No History, Except For Hx Cardiac Problems: Yes - CHF Hx Hypertension: Yes Hx Asthma: Yes Hx COPD: Yes Hx Cancer: No Hx Gastrointestinal Problems: No Hx Neurological Problems: No Review of Systems All Other Systems: negative except mentioned in HPI Physical Exam Vital Signs Date Time Temp Pulse Resp B/P (MAP) Pulse Ox O2 Delivery O2 Flow Rate FiO2 05/14/18 16:06 98.8 59 18 166/69 92 Room Air 05/14/18 16:10 15.0 05/14/18 16:40 100 General Appearance: thin, Chronically Ill ENT: dry mucus membranes Neck: limited range of motion Respiratory: respiratory distress, accessory muscle use, wheezing Cardiovascular #1: bradycardia Gastrointestinal: normal inspection, normal bowel sounds, soft Neurologic: alert, responsive Medical Decision Making Diagnostic Impression: Primary Impression: COPD exacerbation ER Course Patient is a 77-year-old female presented for increased shortness of breath. Differential diagnosis include was not limited to COPD exacerbation, congestive heart failure, myocardial infarction, pneumonia among others. Because of complexity of patient's case laboratory testing and imaging studies were ordered. Patient was noted to have significant shortness of breath. She was given breathing treatments as well as IV steroids. She was noted to have improvement in her breathing. EKG interpreted by me showed sinus bradycardia with nonspecific ST changes. Marked motion artifact Patient laboratory testing was notable for a negative troponin. Patient was noted to have some lower extremity swelling but does not appear to have any evidence of heart failure on chest x-ray. Chest x-ray 1 view interpreted by radiology showed slight blunting of the right costophrenic sulcus with atelectasis as well as central bronchial wall thickening. There is a possible small right pleural effusion. Dr. Ej Hassan was contacted for inpatient management due to primary care physician. Labs Test 05/14/18 16:30 05/14/18 17:17 05/14/18 17:30 White Blood Count 7.1 K/UL (4.8-10.8) Red Blood Count 3.77 M/UL (4.20-5.40) Hemoglobin 11.5 G/DL (12.0-16.0) Hematocrit 36.0 % (37.0-47.0) Mean Corpuscular Volume 95 FL (80-99) Mean Corpuscular Hemoglobin 30.4 PG (27.0-31.0) Mean Corpuscular Hemoglobin Concent 31.8 G/DL (32.0-36.0) Red Cell Distribution Width 15.7 % (11.6-14.8) Platelet Count 237 K/UL (150-450) Mean Platelet Volume 5.9 FL (6.5-10.1) Neutrophils (%) (Auto) 61.3 % (45.0-75.0) Lymphocytes (%) (Auto) 27.1 % (20.0-45.0) Monocytes (%) (Auto) 10.4 % (1.0-10.0) Eosinophils (%) (Auto) 0.4 % (0.0-3.0) Basophils (%) (Auto) 0.7 % (0.0-2.0) Sodium Level 143 MMOL/L (136-145) Potassium Level 4.0 MMOL/L (3.5-5.1) Chloride Level 103 MMOL/L (98-107) Carbon Dioxide Level 32 MMOL/L (21-32) Anion Gap 8 mmol/L (5-15) Blood Urea Nitrogen 24 mg/dL (7-18) Creatinine 1.2 MG/DL (0.55-1.30) Estimat Glomerular Filtration Rate mL/min (>60) Glucose Level 105 MG/DL (74-106) Lactic Acid Level 2.20 mmol/L (0.4-2.0) Calcium Level 9.2 MG/DL (8.5-10.1) Total Bilirubin 0.3 MG/DL (0.2-1.0) Aspartate Amino Transf (AST/SGOT) 27 U/L (15-37) Alanine Aminotransferase (ALT/SGPT) 37 U/L (12-78) Alkaline Phosphatase 219 U/L (46-116) Total Creatine Kinase 93 U/L (26-308) Creatine Kinase MB 1.2 NG/ML (0.0-3.6) Creatine Kinase MB Relative Index 1.2 Troponin I 0.002 ng/mL (0.000-0.056) Pro-B-Type Natriuretic Peptide 103 pg/mL (0-125) Total Protein 7.5 G/DL (6.4-8.2) Albumin 3.1 G/DL (3.4-5.0) Globulin 4.4 g/dL Albumin/Globulin Ratio 0.7 (1.0-2.7) Lipase 101 U/L (73-393) Urine Color Yellow Urine Appearance Clear Urine pH 5 (4.5-8.0) Urine Specific [place] 1.020 (1.005-1.035) Urine Protein 1+ (NEGATIVE) Urine Glucose (UA) Negative (NEGATIVE) Urine Ketones 1+ (NEGATIVE) Urine Blood Negative (NEGATIVE) Urine Nitrite Negative (NEGATIVE) Urine Bilirubin Negative (NEGATIVE) Urine Urobilinogen Normal MG/DL (0.0-1.0) Urine Leukocyte Esterase 1+ (NEGATIVE) Urine RBC 0-2 /HPF (0 - 2) Urine WBC 2-4 /HPF (0 - 2) Urine Squamous Epithelial Cells Few /LPF (NONE/OCC) Urine Bacteria Few /HPF (NONE) Arterial Blood pH 7.367 (7.350-7.450) Arterial Blood Partial Pressure CO2 46.0 mmHg (35.0-45.0) Arterial Blood Partial Pressure O2 322.6 mmHg (75.0-100.0) Arterial Blood HCO3 25.8 mmol/L (22.0-26.0) Arterial Blood Oxygen Saturation 99.2 % (95-100) Arterial Blood Base Excess 0.2 (-2-2) Richar Test Positive EKG Diagnostic Results Rate: bradycardiac Rhythm: NSR ST Segments: other - Motion artifact. Last Vital Signs Date Time Temp Pulse Resp B/P (MAP) Pulse Ox O2 Delivery O2 Flow Rate FiO2 05/14/18 16:52 71 25 100 Non-Rebreather 15.0 100 05/14/18 16:10 98.6 156/132 Status: improved Disposition: ADMITTED INPATIENT Condition: Serious J Carlos Mathew MD May 14, 2018 17:14
--- NOTE | 2018-05-14 17:20 | NUR ---
ED Nurse Note: URINE COLLECTED AND SENT TO LAB.
[2018-05-14 17:21] LABS: ANION GAP 8 mmol/L (5-15); BLOOD UREA NITROGEN 24 mg/dL (7-18); CALCIUM 9.2 MG/DL (8.5-10.1); CARBON DIOXIDE 32 MMOL/L (21-32); CHLORIDE 103 MMOL/L (98-107); CREATININE 1.2 MG/DL (0.55-1.30); SODIUM 143 MMOL/L (136-145)
--- NOTE | 2018-05-14 17:25 | NUR ---
ED Nurse Note: RT AT BEDSIDE FOR ABG.
[2018-05-14 17:38] LABS: ALANINE AMINOTRANSFERASE 37 U/L (12-78); ALBUMIN 3.1 G/DL (3.4-5.0); ALBUMIN/GLOBULIN RATIO 0.7 (1.0-2.7); ALKALINE PHOSPHATASE 219 U/L (46-116); ASPARTATE AMINO TRANSFERASE 27 U/L (15-37); BILIRUBIN,TOTAL 0.3 MG/DL (0.2-1.0); CKMB 1.2 NG/ML (0.0-3.6); CREATINE KINASE 93 U/L (26-308)
--- NOTE | 2018-05-14 17:50 | NUR ---
ED Nurse Note: PT TAKEN OFF NONREBREATHER MASK AND PLACED ON NASAL CANNULA @ 2L O2. RR18 @ 100% O2 SATURATION.
[2018-05-14 17:51] VITALS: BP 143/73
[2018-05-14 17:56] LABS: APPEARANCE,URINE CLEAR; BILIRUBIN, URINE NEGATIVE (NEGATIVE); GLUCOSE, URINE (UA) NEGATIVE (NEGATIVE); KETONES,URINE 1+ (NEGATIVE); LEUKOCYTE ESTERASE ,URINE 1+ (NEGATIVE); NITRITE,URINE NEGATIVE (NEGATIVE); PH,URINE 5 (4.5-8.0); PROTEIN,URINE 1+ (NEGATIVE); UROBILINOGEN,URINE NORMAL MG/DL (0.0-1.0)
--- NOTE | 2018-05-14 17:59 | NUR ---
ED Nurse Note: PT TAKEN OFF OF 02. RR22 @ 99% O2 SATURATION ON RA.
[2018-05-14 18:09] LABS: COLOR,URINE YELLOW
--- NOTE | 2018-05-14 18:18 | NUR ---
ED Nurse Note: BLOOD DRAWN FOR LACTIC REFLEX AND SENT TO LAB.
--- NOTE | 2018-05-14 18:45 | NUR ---
ED Nurse Note: REPORT ATTEMPTED. PER TELE CHARGE, GIVE REPORT TO OPERATOR TECHNICIAN.
--- NOTE | 2018-05-14 19:10 | NUR ---
ED Nurse Note: REPORT ATTEMPTED. COMPUTER LANGUAGE CODER GIVING REPORT TO NIGHT CHARGE NURSE AND RECEIVING RN NOT ON UNIT. WILL CALL BACK FOR REPORT.
--- NOTE | 2018-05-14 19:16 | NUR ---
ED Nurse Note: REPORT GIVEN TO СЕРГЕЙ HARRIS
--- NOTE | 2018-05-14 19:17 | NUR ---
ED Nurse Note: Received report from Angela/ СЕРГЕЙ.
--- NOTE | 2018-05-14 20:23 | NUR ---
TRANSFER TO FLOOR: Patient transferred to Tele/205 as ordered . Report given to Omar/RN. Belongings sent with Pt and rechecked with RN. Pt is A/O X 4.
[2018-05-14 20:30] VITALS: BP_SYST 137; BP_SYST 154; BP_DIAS 56; BP_DIAS 90
--- NOTE | 2018-05-14 20:35 | NUR ---
NURSE NOTES: Received pt from ED via gurney. Pt is awake AOx4. In no acute distress. VS stable. Placed pt on transcript clerk showing SB. Oriented pt to rm and unit. Bed in lowest position, call light within reach. Will contact MD for admission orders.
[2018-05-14] MEDS ORDERED: DILT-XR180 MG PO (21:32)
[2018-05-14] MEDS ORDERED: GABAPENTIN100 MG ORAL (21:32)
[2018-05-14] MEDS ORDERED: PROTONIX40 MG ORAL (21:32)
[2018-05-14] MEDS ORDERED: Morphine Sulfate 2mg/ml Inj(IV/IM USE ONLY) IVP PRN (21:45)
[2018-05-14] MEDS: Heparin 5000 units/ml inj SUBQ SCH (22:41)
[2018-05-14] MEDS: Solu-MEDROL 125mg Inj IVP SCH (22:41)
[2018-05-14] MEDS: Acetaminophen 500mg (ES) tab ORAL SCH (22:43)
[2018-05-14] MEDS: oxyCODONE HCL/Acetaminophen 5/325mg ORAL PRN (22:43)
[2018-05-14] MEDS: Albuterol/Ipratropium 3ml neb HHN SCH (23:00)
[2018-05-15] VITALS: BP 143/94
[2018-05-15] MEDS: Albuterol/Ipratropium 3ml neb HHN SCH ×6 (03:17→23:00)
[2018-05-15 04:00] VITALS: BP 151/80
[2018-05-15] MEDS: Acetaminophen 500mg (ES) tab ORAL SCH ×4 (05:45→21:45)
[2018-05-15] MEDS: Solu-MEDROL 125mg Inj IVP SCH ×3 (06:14→21:21)
[2018-05-15] MEDS: oxyCODONE HCL/Acetaminophen 5/325mg ORAL PRN ×3 (06:15→18:58)
--- NOTE | 2018-05-15 07:56 | NUR ---
CASE MANAGEMENT:REVIEW 77 YR OLD FEMALE PRESENTED TO ER CC: SOB AND BLE SWELLING X2 DAYS....SAT 76% ON RA SI: COPD EXACERBATION 98.7 59 18 166/69 100% ON NON REBREATHER LACTIC ACID+2.20 PCO2+46.0 IS: DUONEB HHN IV SOLUMEDROL X1 500CC NS BOLUS X1 BLOOD CX CXR : TO TELEMETRY *INTERQUAL CRITERIA MET
[2018-05-15 08:00] VITALS: BP 185/91
[2018-05-15] MEDS: Heparin 5000 units/ml inj SUBQ SCH ×2 (08:34→21:41)
[2018-05-15] MEDS: dilTIAZem HCl CD 180mg cap ORAL SCH (09:00)
--- NOTE | 2018-05-15 09:06 | NUR ---
NURSE NOTES: Held Cardiforeign CD dose per Dr. Hassan. Pt's HR is at 55-61 on the monitor.
[2018-05-15] MEDS ORDERED: Pneumococcal Vaccine 25mcg/0.5ml IM ONE ×2 (11:00→13:00)
--- NOTE | 2018-05-15 11:05 | NUR ---
NURSE NOTES: Received report from СЕРГЕЙ Edwards. Pt is resting in bed. No distress noted. Bed is in lowest position, side rails up X2, and call light is within reach. WIll continue to monitor.
--- NOTE | 2018-05-15 11:21 | NUR ---
HAND-OFF: Report given to СЕРГЕЙ Mejia.
[2018-05-15 13:00] VITALS: BP 160/81
--- NOTE | 2018-05-15 13:18 | Cardiology Report ---
APPROVED REPORT EKG Measurement Heart [id number] Sinus bradycardia with sinus arrhythmia Possible Anterior infarct, age undetermined Abnormal ECG
[2018-05-15 16:00] VITALS: BP 147/75
--- NOTE | 2018-05-15 18:02 | History and Physical Report ---
DATE OF ADMISSION: 05/14/2018 CHIEF COMPLAINT: COPD exacerbation and CHF. HISTORY OF PRESENT ILLNESS: The patient is a pleasant 77-year-old female. She has a history of hypertensive heart disease, COPD, and chronic lower back pain. She presented with complaints of lower extremity edema and shortness of breath. On evaluation in the emergency room, the patient was diagnosed with congestive heart failure and chronic obstructive pulmonary disease exacerbation. He received intravenous steroids, respiratory treatments, and diuretics. He is now admitted for further evaluation and care. PAST MEDICAL HISTORY: As above. PAST SURGICAL HISTORY: Includes history of biliary stent. CURRENT MEDICATIONS: Reconciled and reviewed. ALLERGIES: Include SETH inhibitors. FAMILY HISTORY: Noncontributory. SOCIAL HISTORY: There is no known history of alcohol or drugs. The patient does have a history of smoking. PHYSICAL EXAMINATION: VITAL SIGNS: Temperature 98, pulse 58, respirations 20, and blood pressure 185/91. GENERAL: The patient is a well-developed, in no apparent distress. HEART: Regular rate and rhythm. LUNGS: Significant for bilateral wheezes. ABDOMEN: Soft, nontender, and nondistended. EXTREMITIES: No clubbing, cyanosis, or edema. LABORATORY DATA: Sodium 143, potassium 4, BUN 24, and creatinine 1.2. Lactic acid was 2.2. White count 7, hemoglobin 11. Urine was clear. Chest x-ray showed CHF with small right-sided effusion. ASSESSMENT: This is a pleasant female with complaints of congestive heart failure exacerbation, chronic obstructive pulmonary disease exacerbation, chronic lower back pain, and hypertension. PLAN: 1. IV steroids and respiratory treatments. 2. Cautious diuresis. 3. Monitor renal function. 4. Continue outpatient pain regimen. 5. Cardiology and Pulmonary consultations to be obtained. Ej Hassan M.D. DR: SALTY JOB#: [id number] CC:
--- NOTE | 2018-05-15 19:30 | NUR ---
HAND-OFF: Report given to СЕРГЕЙ Edwards. Plan of care endorsed.
--- NOTE | 2018-05-15 19:31 | NUR ---
NURSE NOTES: Received pt from СЕРГЕЙ Mejia. Pt awake and resting in bed. In no acute distress. Denies pain or discomfort at this time. IV site intact and patent. Bed in lowest position, and call light within reach. Will continue with plan of care.
[2018-05-15 20:00] VITALS: BP 161/65
[2018-05-15] MEDS: HydrALAZINE 25mg tab ORAL PRN (21:21)
[2018-05-16] VITALS: BP 144/67
[2018-05-16] MEDS: Albuterol/Ipratropium 3ml neb HHN SCH ×4 (03:00→15:00)
[2018-05-16 04:00] VITALS: BP 157/87
[2018-05-16] MEDS: Acetaminophen 500mg (ES) tab ORAL SCH ×3 (06:05→21:45)
[2018-05-16] MEDS: Solu-MEDROL 125mg Inj IVP SCH ×2 (06:39→18:52)
[2018-05-16] MEDS: oxyCODONE HCL/Acetaminophen 5/325mg ORAL PRN (06:40)
--- NOTE | 2018-05-16 07:30 | NUR ---
NURSE NOTES: Received report from СЕРГЕЙ Edwards. Patient AOx4. Sitting in bed with HOB elevated at semi fowlers. Patient denies any pain or distress at this time. IV intact, patent & SL. On 3L NC with 02 sat at 95% and no complaints of SOB. Safety precautions in place with siderails upx2, bed on lowest position, brakes engaged and alarm on. Call light within easy reach.
--- NOTE | 2018-05-16 07:30 | NUR ---
HAND-OFF: Report given to СЕРГЕЙ Colindres.
[2018-05-16 08:00] VITALS: BP 148/92
--- NOTE | 2018-05-16 08:36 | General Progress Note ---
Assessment/Plan Problem List: (1) Acute bronchitis ICD Codes: J20.9 - Acute bronchitis,unspecified SNOMED: 16100171 (2) Chest pain ICD Codes: R07.9 - Chest pain, unspecified SNOMED: 84897736 (3) Common bile duct obstruction secondary to biliary stent ICD Codes: K83.1 - Obstruction of bile duct SNOMED: 31460298 (4) ACS (acute coronary syndrome) ICD Codes: I24.9 - Acute ischemic heart disease, unspecified SNOMED: 259580772 (5) COPD exacerbation ICD Codes: J44.1 - Chronic obstructive pulmonary disease with (acute) exacerbation SNOMED: 087366388 Status: stable, progressing Assessment/Plan cont current rx resp care wean steroids abd zacarias pain rx Subjective ROS Limited/Unobtainable: No Constitutional: Reports: malaise, weakness HEENT: Reports: no symptoms Cardiovascular: Reports: no symptoms Respiratory: Reports: cough, shortness of breath Gastrointestinal/Abdominal: Reports: abdominal pain Genitourinary: Reports: no symptoms Neurologic/Psychiatric: Reports: no symptoms Endocrine: Reports: no symptoms Hematologic/Lymphatic: Reports: no symptoms Allergies: Coded Allergies: SETH INHIBITORS (Verified Allergy, Unknown, 03/04/16) All Systems: reviewed and negative except above Subjective better today. c/o abd pain. thinks its related to stent. Objective Last 24 Hour Vital Signs Date Time Temp Pulse Resp B/P (MAP) Pulse Ox O2 Delivery O2 Flow Rate FiO2 05/16/18 07:38 54 16 98 Room Air 21 05/16/18 07:27 Room Air 21 05/16/18 07:27 93 Room Air 21 05/16/18 07:27 55 20 93 Room Air 21 05/16/18 04:00 58 05/16/18 04:00 98.5 58 18 157/87 (110) 97 05/16/18 03:39 Nasal Cannula 2.0 28 05/16/18 03:36 Nasal Cannula 2.0 28 05/16/18 00:00 98.3 67 20 144/67 (92) 95 05/16/18 00:00 67 05/15/18 23:33 Nasal Cannula 2.0 28 05/15/18 23:30 Nasal Cannula 2.0 28 05/15/18 21:21 162/68 05/15/18 21:00 Nasal Cannula 3.0 05/15/18 20:00 98.1 62 20 161/65 (97) 96 05/15/18 20:00 96 Nasal Cannula 2.0 28 05/15/18 20:00 62 05/15/18 20:00 60 18 98 Nasal Cannula 2.0 28 05/15/18 20:00 Nasal Cannula 2.0 28 05/15/18 19:50 58 18 96 Nasal Cannula 2.0 28 05/15/18 16:27 61 16 99 Nasal Cannula 3.0 32 05/15/18 16:16 66 16 97 Nasal Cannula 3.0 32 05/15/18 16:00 60 05/15/18 16:00 98.2 60 18 147/75 (99) 96 05/15/18 13:00 98.3 60 18 160/81 (107) 96 05/15/18 12:00 68 05/15/18 11:50 60 16 99 Nasal Cannula 3.0 32 05/15/18 11:37 62 16 97 Nasal Cannula 3.0 32 05/15/18 09:00 Nasal Cannula 3.0 05/15/18 09:00 55 185/91 Intake and Output 05/15/18 05/16/18 19:00 07:00 Intake Total 450 ml Balance 450 ml Intake Oral 450 ml # Voids 3 # Bowel Movements 1 2 Height (Feet): 5 Height (Inches): 4.00 Weight (Pounds): 139 General Appearance: WD/WN, alert Neck: supple Cardiovascular: regular rhythm Respiratory/Chest: chest wall non-tender, expiratory wheezing Abdomen: normal bowel sounds, non tender, soft, no organomegaly Edema: no edema noted Arm (L), no edema noted Arm (R), no edema noted Leg (L), no edema noted Leg (R), no edema noted Pedal (L), no edema noted Pedal (R), no edema noted Generalized Ej Hassan MD May 16, 2018 08:36
[2018-05-16] MEDS: dilTIAZem HCl CD 180mg cap ORAL SCH (09:04)
[2018-05-16] MEDS: Heparin 5000 units/ml inj SUBQ SCH (09:07)
[2018-05-16 12:00] VITALS: BP 130/86
[2018-05-16 16:00] VITALS: BP 136/78
--- NOTE | 2018-05-16 16:46 | NUR ---
NURSE NOTES: Patient converted to A-fib. Communicated with Dr. Hassan.
[2018-05-16] MEDS ORDERED: Albuterol/Ipratropium 3ml neb HHN PRN (17:15)
[2018-05-16] MEDS: Eliquis 2.5mg tablet ORAL SCH (18:47)
[2018-05-16] MEDS: Promethazine/Codeine 5ml UD ORAL PRN (18:51)
--- NOTE | 2018-05-16 19:40 | NUR ---
NURSE NOTES: Received report from Christina De Oliveira RN. Patient in bed AAO X4 with HOB elevated at semi fowlers with no complaints of acute pain or distress at this time. Kept clean, dry, and comfortable in bed. IV line intact and patent, patient is also placed on continuous cardiac placement per protocol. On NC 3L with 02 sat at 93-94% with no S/S of resp distress noted. Safety precautions in place; siderails x3 up, call light within reach, bed in lowest position, brakes and alarm on at all times. Needs and wants anticipated and attended, will continue plan of care and monitor for any changes noted
[2018-05-16 20:00] VITALS: BP 121/66
--- NOTE | 2018-05-16 20:00 | NUR ---
HAND-OFF: Report given to СЕРГЕЙ Dowd. Patient in stable condition.
[2018-05-17] VITALS: BP 138/63
--- NOTE | 2018-05-17 03:06 | NUR ---
NURSE NOTES: Patient in bed asleep with no S/S of distress noted. Will continue to monitor for any changes noted
[2018-05-17 04:00] VITALS: BP 148/78
[2018-05-17] MEDS: oxyCODONE HCL/Acetaminophen 5/325mg ORAL PRN (04:53)
[2018-05-17] MEDS: Promethazine/Codeine 5ml UD ORAL PRN ×2 (04:53→14:04)
[2018-05-17] MEDS: Acetaminophen 500mg (ES) tab ORAL SCH ×3 (05:45→21:32)
[2018-05-17] MEDS: Solu-MEDROL 125mg Inj IVP SCH ×2 (06:09→18:18)
--- NOTE | 2018-05-17 07:00 | NUR ---
NURSE NOTES: Received report from Reymundo RUSHING. Patient in bed AAO X4. Patient denies acute pain or distress at this time. Patient is on continuous cardiac placement per protocol. On NC 3L with 02 sat and breathing even and unlabored. Safety precautions in place; side rails x 3 up, call light within reach, bed in lowest position, brakes and alarm on at all times. Will continue plan of care.
--- NOTE | 2018-05-17 07:22 | NUR ---
HAND-OFF: Report given to Brett Gaona RN. Patient in bed asleep with no S/S of distress at this time. Endorsed plan of care
[2018-05-17 08:00] VITALS: BP 159/94
[2018-05-17] MEDS: dilTIAZem HCl CD 180mg cap ORAL SCH (09:00)
[2018-05-17 09:17] LABS: HEMATOCRIT 42.1 % (37.0-47.0); HEMOGLOBIN 13.1 G/DL (12.0-16.0); MEAN CORPUSCULAR VOLUME 95 FL (80-99); PLATELET COUNT 329 K/UL (150-450); RED BLOOD COUNT 4.45 M/UL (4.20-5.40); RED CELL DISTRIBUTION WIDTH 15.7 % (11.6-14.8); WHITE BLOOD COUNT 10.6 K/UL (4.8-10.8)
[2018-05-17 09:34] LABS: ALANINE AMINOTRANSFERASE 28 U/L (12-78); ALBUMIN 2.9 G/DL (3.4-5.0); ALBUMIN/GLOBULIN RATIO 0.7 (1.0-2.7); ALKALINE PHOSPHATASE 162 U/L (46-116); ANION GAP 7 mmol/L (5-15); ASPARTATE AMINO TRANSFERASE 13 U/L (15-37); BILIRUBIN,TOTAL 0.2 MG/DL (0.2-1.0); BLOOD UREA NITROGEN 21 mg/dL (7-18); CALCIUM 9.6 MG/DL (8.5-10.1); CARBON DIOXIDE 33 MMOL/L (21-32); CHLORIDE 103 MMOL/L (98-107); CREATININE 0.9 MG/DL (0.55-1.30); POTASSIUM 4.1 MMOL/L (3.5-5.1); SODIUM 143 MMOL/L (136-145)
[2018-05-17] MEDS: Eliquis 2.5mg tablet ORAL SCH ×2 (09:37→18:18)
--- NOTE | 2018-05-17 11:55 | NUR ---
NURSE NOTES: Called Dr. Hassan regarding heart rate in the morning. Verifying parameters on cardizem medication. Left voice message.
[2018-05-17 12:00] VITALS: BP 153/89
--- NOTE | 2018-05-17 12:05 | NUR ---
NURSE NOTES: Spoke to Dr. Hassan about heart rate and BP. is aware and order placed. In addition, to continue to monitoring vital signs.
--- NOTE | 2018-05-17 12:15 | General Progress Note ---
Assessment/Plan Problem List: (1) Acute bronchitis ICD Codes: J20.9 - Acute bronchitis,unspecified SNOMED: 55122101 (2) Chest pain ICD Codes: R07.9 - Chest pain, unspecified SNOMED: 85660002 (3) Common bile duct obstruction secondary to biliary stent ICD Codes: K83.1 - Obstruction of bile duct SNOMED: 73504348 (4) ACS (acute coronary syndrome) ICD Codes: I24.9 - Acute ischemic heart disease, unspecified SNOMED: 515095863 (5) COPD exacerbation ICD Codes: J44.1 - Chronic obstructive pulmonary disease with (acute) exacerbation SNOMED: 881559897 Status: stable, progressing Assessment/Plan cont current rx resp care wean steroids abd zacarias pain rx Subjective ROS Limited/Unobtainable: No Constitutional: Reports: weakness HEENT: Reports: no symptoms Cardiovascular: Reports: chest pain, irregular heart rate Respiratory: Reports: cough, shortness of breath Gastrointestinal/Abdominal: Reports: no symptoms Genitourinary: Reports: no symptoms Neurologic/Psychiatric: Reports: no symptoms Endocrine: Reports: no symptoms Hematologic/Lymphatic: Reports: no symptoms Allergies: Coded Allergies: SETH INHIBITORS (Verified Allergy, Unknown, 03/04/16) All Systems: reviewed and negative except above Subjective decreased sob. decreased chest pain intermittent afib on monitor. mostly rate controlled. HR now sinus lupe Objective Last 24 Hour Vital Signs Date Time Temp Pulse Resp B/P (MAP) Pulse Ox O2 Delivery O2 Flow Rate FiO2 05/17/18 09:40 Room Air 21 05/17/18 09:40 93 Room Air 21 05/17/18 09:38 54 159/94 05/17/18 09:00 Nasal Cannula 3.0 05/17/18 09:00 54 159/94 05/17/18 08:00 98.8 54 22 159/94 (115) 93 05/17/18 07:29 48 05/17/18 04:00 55 05/17/18 04:00 98.4 64 19 148/78 (101) 93 05/17/18 00:00 57 05/17/18 00:00 98.6 59 17 138/63 (88) 95 05/16/18 21:00 Nasal Cannula 3.0 05/16/18 20:25 96 Nasal Cannula 2.0 28 05/16/18 20:25 Nasal Cannula 2.0 28 05/16/18 20:00 72 05/16/18 20:00 98.5 74 18 121/66 (84) 97 05/16/18 16:00 98.7 92 20 136/78 (97) 99 05/16/18 16:00 87 Intake and Output 05/16/18 05/17/18 19:00 07:00 # Voids 4 1 # Bowel Movements 1 3 Laboratory Tests 05/16/18 17:05: Thyroid Stimulating Hormone (TSH) 0.087L 05/17/18 08:50: White Blood Count 10.6, Red Blood Count 4.45, Hemoglobin 13.1, Hematocrit 42.1, Mean Corpuscular Volume 95, Mean Corpuscular Hemoglobin 29.4, Mean Corpuscular Hemoglobin Concent 31.2L, Red Cell Distribution Width 15.7H, Platelet Count 329 , Mean Platelet Volume 7.4, Neutrophils (%) (Auto) , Lymphocytes (%) (Auto) , Monocytes (%) (Auto) , Eosinophils (%) (Auto) , Basophils (%) (Auto) , Differential Total Cells Counted 100, Neutrophils % (Manual) 87H, Lymphocytes % (Manual) 10L, Monocytes % (Manual) 3, Eosinophils % (Manual) 0, Basophils % ( Manual) 0, Band Neutrophils 0, Platelet Estimate Adequate, Platelet Morphology Normal, Red Blood Cell Morphology Normal, Anisocytosis , Sodium Level 143, Potassium Level 4.1, Chloride Level 103, Carbon Dioxide Level 33H, Anion Gap 7, Blood Urea Nitrogen 21H, Creatinine 0.9, Estimat Glomerular Filtration Rate , Glucose Level 122H, Calcium Level 9.6, Total Bilirubin 0.2, Aspartate Amino Transf (AST/SGOT) 13L, Alanine Aminotransferase (ALT/SGPT) 28, Alkaline Phosphatase 162H, Total Protein 7.3, Albumin 2.9L, Globulin 4.4, Albumin/ Globulin Ratio 0.7L Height (Feet): 5 Height (Inches): 4.00 Weight (Pounds): 138 General Appearance: WD/WN, alert Neck: supple Cardiovascular: normal rate Respiratory/Chest: chest wall non-tender, lungs clear, normal breath sounds, no respiratory distress Abdomen: normal bowel sounds, non tender, soft, no organomegaly Edema: no edema noted Arm (L), no edema noted Arm (R), no edema noted Leg (L), no edema noted Leg (R), no edema noted Pedal (L), no edema noted Pedal (R), no edema noted Generalized 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
[2018-05-17 16:00] VITALS: BP 153/88
[2018-05-17 20:00] VITALS: BP 151/83
--- NOTE | 2018-05-17 23:22 | NUR ---
HAND-OFF: Report given to СЕРГЕЙ Hardy. Patient is sleeping in bed. Endorsed plan of care.
[2018-05-18] VITALS: BP 145/85
[2018-05-18] MEDS: oxyCODONE HCL/Acetaminophen 5/325mg ORAL PRN ×3 (00:04→17:57)
[2018-05-18] MEDS: Promethazine/Codeine 5ml UD ORAL PRN (00:08)
[2018-05-18 04:00] VITALS: BP 145/85
[2018-05-18] MEDS: Acetaminophen 500mg (ES) tab ORAL SCH ×3 (05:45→20:58)
[2018-05-18] MEDS: Solu-MEDROL 125mg Inj IVP SCH ×2 (06:02→09:22)
--- NOTE | 2018-05-18 06:56 | NUR ---
HAND-OFF: Report given to nurse Elijah.Pt.denies pain..
--- NOTE | 2018-05-18 07:15 | NUR ---
NURSE NOTES: Received report from СЕРГЕЙ Mendoza . Pt is resting in bed in semi-tenorio position a/o x 4, eating her breakfast. No signs and symptoms of acute distress at this time. Denies pain at present. Bed in lowest position with two side rails up, break engaged. Bed side table and bed alarm within reach. Will continue to monitor.
--- NOTE | 2018-05-18 07:46 | General Progress Note ---
Assessment/Plan Problem List: (1) Acute bronchitis ICD Codes: J20.9 - Acute bronchitis,unspecified SNOMED: 64837426 (2) Chest pain ICD Codes: R07.9 - Chest pain, unspecified SNOMED: 92965672 (3) Common bile duct obstruction secondary to biliary stent ICD Codes: K83.1 - Obstruction of bile duct SNOMED: 96258363 (4) ACS (acute coronary syndrome) ICD Codes: I24.9 - Acute ischemic heart disease, unspecified SNOMED: 332503881 (5) COPD exacerbation ICD Codes: J44.1 - Chronic obstructive pulmonary disease with (acute) exacerbation SNOMED: 674071748 Status: stable Assessment/Plan cont current rx resp care wean steroids abd zacarias pain rx cards eval pending Subjective ROS Limited/Unobtainable: No Constitutional: Reports: weakness HEENT: Reports: no symptoms Cardiovascular: Reports: no symptoms Respiratory: Reports: cough, shortness of breath Gastrointestinal/Abdominal: Reports: no symptoms Genitourinary: Reports: no symptoms Neurologic/Psychiatric: Reports: no symptoms Endocrine: Reports: no symptoms Hematologic/Lymphatic: Reports: no symptoms Allergies: Coded Allergies: SETH INHIBITORS (Verified Allergy, Unknown, 03/04/16) All Systems: reviewed and negative except above Subjective decreased sob. decreased chest pain intermittent afib on monitor. mostly rate controlled. HR now sinus lupe. cardizem decreased. no afib(had afib with rvr for 5 mins several days ago) Objective Last 24 Hour Vital Signs Date Time Temp Pulse Resp B/P (MAP) Pulse Ox O2 Delivery O2 Flow Rate FiO2 05/18/18 04:00 98.4 53 21 145/85 (105) 94 05/18/18 04:00 50 05/18/18 00:34 98.7 05/18/18 00:00 55 05/18/18 00:00 98.2 53 21 145/85 (105) 94 05/17/18 21:59 Room Air 21 05/17/18 21:59 94 Room Air 21 05/17/18 20:45 54 05/17/18 20:22 Nasal Cannula 3.0 05/17/18 20:00 98.7 53 21 151/83 (105) 94 05/17/18 16:00 98.7 61 23 153/88 (109) 91 05/17/18 16:00 81 05/17/18 14:34 98.0 05/17/18 12:00 98.0 70 22 153/89 (110) 92 05/17/18 11:46 58 05/17/18 09:40 Room Air 21 05/17/18 09:40 93 Room Air 21 05/17/18 09:38 54 159/94 05/17/18 09:00 Nasal Cannula 3.0 05/17/18 09:00 54 159/94 05/17/18 08:00 98.8 54 22 159/94 (115) 93 Intake and Output 05/17/18 05/18/18 18:59 06:59 # Voids 5 # Bowel Movements 1 1 Laboratory Tests 05/17/18 08:50: White Blood Count 10.6, Red Blood Count 4.45, Hemoglobin 13.1, Hematocrit 42.1, Mean Corpuscular Volume 95, Mean Corpuscular Hemoglobin 29.4, Mean Corpuscular Hemoglobin Concent 31.2L, Red Cell Distribution Width 15.7H, Platelet Count 329 , Mean Platelet Volume 7.4, Neutrophils (%) (Auto) , Lymphocytes (%) (Auto) , Monocytes (%) (Auto) , Eosinophils (%) (Auto) , Basophils (%) (Auto) , Differential Total Cells Counted 100, Neutrophils % (Manual) 87H, Lymphocytes % (Manual) 10L, Monocytes % (Manual) 3, Eosinophils % (Manual) 0, Basophils % ( Manual) 0, Band Neutrophils 0, Platelet Estimate Adequate, Platelet Morphology Normal, Red Blood Cell Morphology Normal, Anisocytosis , Sodium Level 143, Potassium Level 4.1, Chloride Level 103, Carbon Dioxide Level 33H, Anion Gap 7, Blood Urea Nitrogen 21H, Creatinine 0.9, Estimat Glomerular Filtration Rate , Glucose Level 122H, Calcium Level 9.6, Total Bilirubin 0.2, Aspartate Amino Transf (AST/SGOT) 13L, Alanine Aminotransferase (ALT/SGPT) 28, Alkaline Phosphatase 162H, Total Protein 7.3, Albumin 2.9L, Globulin 4.4, Albumin/ Globulin Ratio 0.7L Height (Feet): 5 Height (Inches): 4.00 Weight (Pounds): 138 Objective General Appearance: WD/WN, alert Neck: supple Cardiovascular: normal rate Respiratory/Chest: chest wall non-tender, lungs clear, normal breath sounds, no respiratory distress Abdomen: normal bowel sounds, non tender, soft, no organomegaly Edema: no edema noted Arm (L), no edema noted Arm (R), no edema noted Leg (L), no edema noted Leg (R), no edema noted Pedal (L), no edema noted Pedal (R), no edema noted Generalized Neurologic: application engineer II-XII grossly normal, no motor/sensory deficits, alert, oriented x 3, responsive Ej Hassan MD May 18, 2018 07:46
[2018-05-18 08:00] VITALS: BP 144/89
[2018-05-18] MEDS ORDERED: dilTIAZem HCl CD 180mg cap ORAL SCH (09:00)
[2018-05-18] MEDS: dilTIAZem HCl CD 120mg cap ORAL SCH (09:23)
[2018-05-18] MEDS: Eliquis 2.5mg tablet ORAL SCH ×2 (10:00→17:53)
[2018-05-18 12:00] VITALS: BP 155/90
[2018-05-18 16:00] VITALS: BP 127/75
[2018-05-18 16:16] LABS: POTASSIUM 3.9 MMOL/L (3.5-5.1)
--- NOTE | 2018-05-18 19:25 | NUR ---
HAND-OFF: Report given to СЕРГЕЙ Clemons.
--- NOTE | 2018-05-18 19:40 | NUR ---
NURSE NOTES: Report received from СЕРГЕЙ Valenzuela. Pt is lying comfortably in bed and in stable condition. No signs of cardiopulmonary distress noted. Bed in the lowest position, brakes engaged, side rails raised x3 and call light within reach. Will continue to monitor.
[2018-05-18 20:00] VITALS: BP 137/71
[2018-05-19] VITALS: BP 126/77
--- NOTE | 2018-05-19 02:00 | Consultation ---
DATE OF CONSULTATION: 05/18/2018 CARDIOLOGY CONSULTATION REASON FOR CONSULTATION: Atrial fibrillation and chest pain. HISTORY OF PRESENT ILLNESS: This is a 77-year-old female with chronic obstructive pulmonary disease returned to the hospital several days ago with congestion, wheezing, and shortness of breath. She has been treated with steroids, inhaled bronchodilators, and antimicrobials with improvement. I have been asked to address her abnormal cardiac rhythm. The patient has episodes of atrial fibrillation. She had a short period of rapid atrial fibrillation. Now, her ventricular rates are low. Dr. Hassan has just decreased her Cardizem. Her chest pain is associated with cough and deep inspiration and has improved since admission. PHYSICAL EXAMINATION: VITALS: Blood pressure 145/85, pulse 53, and respirations 21. LUNGS: Diminished breath sounds. Kyphoscoliosis. HEART: Irregularly irregular rhythm. Normal S1, S2. There is a 1/6 systolic murmur at apex. ABDOMEN: Soft. EXTREMITIES: Trace edema. LABORATORY DATA: Noted. IMPRESSION: 1. Chronic obstructive pulmonary disease exacerbation improving. 2. Paroxysmal bronchospasm, resolving. 3. Lactic acidosis, resolved. 4. Paroxysmal atrial fibrillation with underlying conduction system disease and slower ventricular response. 5. Acute on chronic diastolic congestive heart failure, compensated. 6. Pleuritic chest pain with no evidence of acute coronary insufficiency. PLAN: 1. Agree with decrease in Cardizem dosing. 2. Continue apixaban for cardioembolic prophylaxis. 3. Titrate antihypertensives as needed. 4. Steroid taper. 5. Outpatient stress test once the patient's pulmonary status has returned to baseline. Moe Leblanc M.D. DR: ROGER JOB#: [id number] CC:
[2018-05-19 04:00] VITALS: BP 171/98
[2018-05-19] MEDS: oxyCODONE HCL/Acetaminophen 5/325mg ORAL PRN ×4 (04:18→21:21)
[2018-05-19] MEDS: HydrALAZINE 25mg tab ORAL PRN (04:26)
[2018-05-19] MEDS: Promethazine/Codeine 5ml UD ORAL PRN ×3 (04:26→21:21)
[2018-05-19] MEDS: Acetaminophen 500mg (ES) tab ORAL SCH ×3 (05:45→21:22)
--- NOTE | 2018-05-19 07:25 | NUR ---
NURSE NOTES: Received report from СЕРГЕЙ Clemons . Pt is resting in bed, sleeping. No signs and symptoms of acute distress noted at this time. Bed in lowest position with two side rails up, break engaged. Bed side table and bed alarm within reach. Will continue to monitor.
--- NOTE | 2018-05-19 07:56 | NUR ---
HAND-OFF: Report given to Jackie. Plan of care endorsed. Addendum: 05/19/18 at 1943 by Kaci Xiong RN Report given to СЕРГЕЙ Valenzuela
[2018-05-19 08:00] VITALS: BP 149/76
--- NOTE | 2018-05-19 08:58 | General Progress Note ---
Assessment/Plan Problem List: (1) Acute bronchitis ICD Codes: J20.9 - Acute bronchitis,unspecified SNOMED: 66791638 (2) Chest pain ICD Codes: R07.9 - Chest pain, unspecified SNOMED: 00117088 (3) Common bile duct obstruction secondary to biliary stent ICD Codes: K83.1 - Obstruction of bile duct SNOMED: 16572294 (4) ACS (acute coronary syndrome) ICD Codes: I24.9 - Acute ischemic heart disease, unspecified SNOMED: 812712507 (5) COPD exacerbation ICD Codes: J44.1 - Chronic obstructive pulmonary disease with (acute) exacerbation SNOMED: 797536749 Status: stable Assessment/Plan cont current rx resp care wean steroids abd zacarias pain rx cards eval appreciated Subjective ROS Limited/Unobtainable: No Constitutional: Reports: malaise, weakness HEENT: Reports: no symptoms Cardiovascular: Reports: no symptoms Respiratory: Reports: cough Gastrointestinal/Abdominal: Reports: abdominal pain Genitourinary: Reports: no symptoms Neurologic/Psychiatric: Reports: no symptoms Endocrine: Reports: no symptoms Hematologic/Lymphatic: Reports: no symptoms Allergies: Coded Allergies: SETH INHIBITORS (Verified Allergy, Unknown, 03/04/16) All Systems: reviewed and negative except above Subjective decreased sob. decreased chest pain intermittent afib on monitor. mostly rate controlled. had episode of vtach given magnesium no recurrent vtach still with abd pain. awaiting abd us Objective Last 24 Hour Vital Signs Date Time Temp Pulse Resp B/P (MAP) Pulse Ox O2 Delivery O2 Flow Rate FiO2 05/19/18 08:00 98.6 59 18 149/76 (100) 95 05/19/18 04:26 171/98 05/19/18 04:00 49 05/19/18 04:00 97.5 59 20 171/98 (122) 95 05/19/18 00:00 98.7 54 20 126/77 (93) 98 05/19/18 00:00 53 05/18/18 22:45 98 Nasal Cannula 2.0 28 05/18/18 22:44 Nasal Cannula 2.0 28 05/18/18 21:00 Nasal Cannula 3.0 05/18/18 20:00 65 05/18/18 20:00 98.7 66 20 137/71 (93) 96 05/18/18 16:00 98.9 66 19 127/75 (92) 95 05/18/18 16:00 90 05/18/18 12:00 53 05/18/18 12:00 98.2 57 18 155/90 (111) 95 05/18/18 09:45 Nasal Cannula 2.0 28 05/18/18 09:45 98 Nasal Cannula 2.0 28 05/18/18 09:23 67 144/89 05/18/18 09:23 67 144/89 05/18/18 09:00 Nasal Cannula 3.0 Intake and Output 05/18/18 05/19/18 18:59 06:59 Intake Total 800 ml Balance 800 ml Intake Oral 800 ml # Voids 5 2 # Bowel Movements 4 Laboratory Tests 05/18/18 15:50: Potassium Level 3.9, Magnesium Level 1.8 Height (Feet): 5 Height (Inches): 4.00 Weight (Pounds): 138 Objective General Appearance: WD/WN, alert Neck: supple Cardiovascular: normal rate Respiratory/Chest: chest wall non-tender, lungs clear, normal breath sounds, no respiratory distress Abdomen: normal bowel sounds, non tender, soft, no organomegaly Edema: no edema noted Arm (L), no edema noted Arm (R), no edema noted Leg (L), no edema noted Leg (R), no edema noted Pedal (L), no edema noted Pedal (R), no edema noted Generalized Neurologic: board of directors II-XII grossly normal, no motor/sensory deficits, alert, oriented x 3, responsive Ej Hassan MD May 19, 2018 08:58
[2018-05-19] MEDS: Solu-MEDROL 125mg Inj IVP SCH (09:12)
[2018-05-19] MEDS: dilTIAZem HCl CD 120mg cap ORAL SCH (09:12)
[2018-05-19] MEDS: Eliquis 2.5mg tablet ORAL SCH ×2 (09:13→17:33)
[2018-05-19 12:00] VITALS: BP 141/84
[2018-05-19 16:00] VITALS: BP 144/80
--- NOTE | 2018-05-19 19:14 | NUR ---
HAND-OFF: Report given to СЕРГЕЙ Clemons.
--- NOTE | 2018-05-19 19:31 | NUR ---
NURSE NOTES: Received report from СЕРГЕЙ Mcqueen. Patient is asleep lying semi-tenorio's; resting comfortably. Arousable to verbal and tactile stimuli. No signs of acute distress or pain noted at this time. AOx4; able to make needs known. Checked IV site; patent and flushed. No erythema, bleeding, or infiltration noted. Bed at lowest position, brakes on, siderails up x3. Call light within reach. Will continue to monitor. Addendum: 05/20/18 at 2009 by MALIK JARA RN RN Wrong time.
[2018-05-19 20:00] VITALS: BP 121/74
[2018-05-20] VITALS: BP 136/85
[2018-05-20] MEDS: oxyCODONE HCL/Acetaminophen 5/325mg ORAL PRN ×3 (01:58→20:48)
[2018-05-20 04:00] VITALS: BP 143/76
[2018-05-20] MEDS: Acetaminophen 500mg (ES) tab ORAL SCH ×3 (05:45→20:47)
--- NOTE | 2018-05-20 07:25 | NUR ---
NURSE NOTES: received patient report from neeraj alfaro. patient is awake. not in acute distress. comfortable. no arrythmias reported during the night. will continue plan of care.
--- NOTE | 2018-05-20 07:37 | NUR ---
HAND-OFF: Report given to СЕРГЕЙ Salazar. Plan of care endorsed.
[2018-05-20 08:00] VITALS: BP 151/81
--- NOTE | 2018-05-20 08:06 | NUR ---
CASE MANAGEMENT:REVIEW 05/20/18 SI: COPD. ACS. ACUTE BRONCHITIS 97.0 55 18 143/76 98% ON 2L/NC IS: CARDIZEM PO QD IV SOLUMEDROL QD ELIQUIS PO BID NORVASC PO QD PROTONIX PO QD PERCOCET PO Q4HRS PRN : TELEMETRY STATUS
[2018-05-20] MEDS: Eliquis 2.5mg tablet ORAL SCH ×2 (08:14→17:09)
[2018-05-20] MEDS: Solu-MEDROL 125mg Inj IVP SCH (08:15)
[2018-05-20] MEDS: dilTIAZem HCl CD 120mg cap ORAL SCH (08:15)
[2018-05-20] MEDS ORDERED: ELIQUIS2.5 MG ORAL (08:27)
[2018-05-20] MEDS ORDERED: CARDIZEM CD120 MG ORAL (08:27)
[2018-05-20 12:00] VITALS: BP 137/83
--- NOTE | 2018-05-20 13:35 | NUR ---
NURSE NOTES: received patient A/A/Ox4 crying due to her lunch. We were able to take care of it and sent the dietitian to assist her with the menu for dinner. Medicated with percocet po for generalized pain. kept bed in the lowest position and bed in alarm mode. siderails are up x3. instructed to call for assistance. will cont to monitor.
[2018-05-20 16:00] VITALS: BP 145/84
--- NOTE | 2018-05-20 19:24 | NUR ---
HAND-OFF: Report given to Beata.
--- NOTE | 2018-05-20 19:31 | NUR ---
NURSE NOTES: Received report from СЕРГЕЙ Mcqueen. Patient is asleep lying semi-tenorio's; resting comfortably. Arousable to verbal and tactile stimuli. No signs of acute distress or pain noted at this time. AOx4; able to make needs known. Checked IV site; patent and flushed. No erythema, bleeding, or infiltration noted. Bed at lowest position, brakes on, siderails up x3. Call light within reach. Will continue to monitor.
[2018-05-20 20:00] VITALS: BP 140/80
[2018-05-20] MEDS: Promethazine/Codeine 5ml UD ORAL PRN (20:48)
[2018-05-21] VITALS: BP 153/86
[2018-05-21] MEDS: oxyCODONE HCL/Acetaminophen 5/325mg ORAL PRN ×3 (01:11→09:45)
--- NOTE | 2018-05-21 03:20 | NUR ---
NURSE NOTES: Patient is asleep lying semi-tenorio's; resting comfortably. No signs of acute distress or pain noted at this time.
[2018-05-21 04:00] VITALS: BP 135/89
[2018-05-21] MEDS: Acetaminophen 500mg (ES) tab ORAL SCH (05:05)
[2018-05-21] MEDS ORDERED: HydrALAZINE 50mg tab ORAL SCH (06:00)
[2018-05-21 06:40] LABS: BASOPHILS % (AUTO) 0.4 % (0.0-2.0); HEMATOCRIT 42.1 % (37.0-47.0); HEMOGLOBIN 13.7 G/DL (12.0-16.0); LYMPHOCYTES % (AUTO) 19.9 % (20.0-45.0); MEAN CORPUSCULAR VOLUME 93 FL (80-99); NEUTROPHILS % (AUTO) 72.7 % (45.0-75.0); PLATELET COUNT 381 K/UL (150-450); RED BLOOD COUNT 4.53 M/UL (4.20-5.40); RED CELL DISTRIBUTION WIDTH 14.9 % (11.6-14.8)
--- NOTE | 2018-05-21 07:22 | NUR ---
HAND-OFF: Report given to СЕРГЕЙ Lin. Patient is sitting on the edge of the bed eating breakfast. In stable condition.
--- NOTE | 2018-05-21 07:25 | NUR ---
NURSE NOTES: Received report from СЕРГЕЙ Cota. Patient in bed resting, SB with HR 57, no active s/s cardiac, respiratory distress noticed at this time, patient refuses to use oxygen via NC, O2 sat 96% without oxygen via NC. Denies pain at this time, AOx4. Bed in lowest position, side rails upx2, call light within reach. Will continue to monitor.
[2018-05-21 07:27] LABS: ALANINE AMINOTRANSFERASE 19 U/L (12-78); ALBUMIN 2.6 G/DL (3.4-5.0); ALBUMIN/GLOBULIN RATIO 0.7 (1.0-2.7); ALKALINE PHOSPHATASE 132 U/L (46-116); ANION GAP 3 mmol/L (5-15); ASPARTATE AMINO TRANSFERASE 14 U/L (15-37); BILIRUBIN,TOTAL 0.3 MG/DL (0.2-1.0); BLOOD UREA NITROGEN 25 mg/dL (7-18); CALCIUM 9.1 MG/DL (8.5-10.1); CARBON DIOXIDE 35 MMOL/L (21-32); CHLORIDE 104 MMOL/L (98-107); CREATININE 0.9 MG/DL (0.55-1.30); POTASSIUM 4.6 MMOL/L (3.5-5.1); SODIUM 141 MMOL/L (136-145)
[2018-05-21 08:00] VITALS: BP 157/78
[2018-05-21] MEDS ORDERED: Solu-MEDROL 125mg Inj IVP SCH (09:00)
[2018-05-21] MEDS: Eliquis 2.5mg tablet ORAL SCH ×2 (09:00→09:28)
[2018-05-21] MEDS: dilTIAZem HCl CD 120mg cap ORAL SCH ×2 (09:00→09:29)
--- NOTE | 2018-05-21 09:32 | Cardiology Report ---
APPROVED REPORT EXAM: Two-dimensional and M-mode echocardiogram with Doppler and color Doppler. INDICATION Atrial Fibrillation M-Mode DIMENSIONS IVSd2.0 (0.7-1.1cm)Left Atrium (MM)4.0 (1.6-4.0cm) LVDd4.1 (3.5-5.6cm)Aortic Root3.6 (2.0-3.7cm) PWd1.6 (0.7-1.1cm)Aortic Cusp Exc.2.0 (1.5-2.0cm) LVDs1.6 (2.5-4.0cm) PWs2.7 cm Normal left ventricular chamber size, systolic function and wall motion. Left ventricular ejection fraction estimated to be 60 %. Mild left ventricular hypertrophy. No evidence of pericardial effusion. Mild left atrial enlargement by 2D. Right cardiac chamber sizes are within normal limits. Mild focal aortic valve sclerosis with adequate cusp excursion. Mildly thickened mitral valve leaflets with normal excursion. Mild mitral annulus and aortic root calcification. Pulmonic valve not well visualized. Normal tricuspid valve structure. IVC dilated at 2.5 cm without physiological collapse. A color flow and spectral Doppler study was performed and revealed: Mild aortic insufficiency. Mild mitral regurgitation. Mitral diastolic velocities suggest mild left ventricular diastolic dysfunction (Grade I). Mild tricuspid regurgitation. Tricuspid systolic velocities suggests peak right ventricular systolic pressure of 47 mmHg, consistent with moderate pulmonary hypertension. No pulmonic regurgitation present.
[2018-05-21 12:00] VITALS: BP 149/98
--- NOTE | 2018-05-21 13:14 | Progress Note ---
DATE: 05/20/2018 CARDIOLOGY PROGRESS NOTE SUBJECTIVE: Congestion and cough decreasing. Leg and back pain persisting. No chest pain. No shortness of breath. Monitored rhythm sinus with episodes of atrial fibrillation. Heart rate 50 to 70 range. OBJECTIVE: LUNGS: Coarse breath sounds. Diminished at the bases. Few rhonchi. CARDIAC: Irregularly irregular rhythm. Normal S1 and S2. ABDOMEN: Soft. EXTREMITIES: Trace edema. Degenerative changes of the large joints is seen. IMPRESSION: 1. COPD. 2. Paroxysmal bronchospasm. 3. Degenerative disk disease. 4. Osteoarthritis. 5. Paroxysmal atrial fibrillation. 6. Underlying conduction system disease, asymptomatic. 7. No signs of acute congestive heart failure, clinically. PLAN: 1. Discontinue amlodipine in favor of hydralazine. 2. Maintain diltiazem for rate control with titration of dosing. 3. Full anticoagulation for cardioembolic prophylaxis. 4. Titrate gabapentin. 5. Taper steroids. 6. Continue bronchodilator. Moe Leblanc M.D. DR: KAMALA JOB#: [id number] CC:
--- NOTE | 2018-05-21 13:14 | Progress Note ---
DATE: 05/19/2018 CARDIOLOGY PROGRESS NOTE SUBJECTIVE: ____ congestion improving, however slow, still with abdominal pain. No chest pain. Monitored rhythm sinus with paroxysms of atrial fibrillation and aberrancy. OBJECTIVE: VITAL SIGNS: Blood pressure 149/76, ___, respiratory rate 18, and afebrile. LUNGS: Bilateral breath sounds. Scattered rhonchi. HEART: Irregularly irregular rhythm. ABDOMEN: Soft. EXTREMITIES: Trace edema. LABORATORY DATA: Noted. IMPRESSION: 1. Chronic obstructive pulmonary disease exacerbation. 2. Chronic diastolic congestive heart failure. 3. Bradyarrhythmia, resolved. 4. Lactic acidosis. 5. Paroxysmal atrial fibrillation. PLAN: 1. Limit beta agonist therapy. 2. Continue diltiazem. 3. Consider discontinuation for diltiazem if continued bradyarrhythmic trend. 4. Titrate antihypertensive regimen. 5. Respiratory hygiene. Moe Leblanc M.D. DR: JOAQUÍN JOB#: [id number] CC:
--- NOTE | 2018-05-21 13:15 | NUR ---
NURSE NOTES: Patient discharged to home per Dr. Hassan. [facility]'s [facility] and [facility] IV removed, monitor and storage bin tender returned to night monitor. Patient's grand-daughter at bedside taking private vehicle in stable condition. Patient saturating 96% without oxygen support and able to ambulate with cane. Patient discharged with all belongings.
--- NOTE | 2018-05-21 23:00 | Discharge Summary ---
DATE OF ADMISSION: 05/14/2018 DATE OF DISCHARGE: 05/21/2018 ADMITTING DIAGNOSES: 1. COPD exacerbation. 2. CHF exacerbation. 3. Hypertension. 4. History of chronic back pain. 5. History of biliary stent. DISCHARGE DIAGNOSES: 1. COPD exacerbation. 2. CHF exacerbation. 3. Hypertension. 4. History of chronic back pain. 5. History of biliary stent. HOSPITAL COURSE: The patient was admitted with complaints of CHF exacerbation and COPD exacerbation. She initially was placed on high flow oxygen. BiPAP was quickly weaned. She received IV diuretic therapy, intravenous steroids, breathing treatments [id number]. She had slow improvement in her symptoms. Her hospital course complicated by difficult to control pain. Cardiology consultation was obtained to assess the patient's heart failure management. She did improve and on discharge was stable. She will be discharged home with close outpatient followup. DISCHARGE MEDICATIONS: Please see discharge medication list for discharge medications. DIET: Cardiac diet. ACTIVITY: Ad-coy. FOLLOWUP: The patient to follow up in one to two weeks in the office. Ej Hassan M.D. DR: Kalen JOB#: [id number] CC:
--- NOTE | 2018-05-22 03:00 | Progress Note ---
DATE: 05/21/2018 CARDIOLOGY PROGRESS NOTE SUBJECTIVE: The patient feels better. Less congestion. No shortness of breath. OBJECTIVE: VITAL SIGNS: Blood pressure 157/78, pulse 74, respiratory rate 18. LUNGS: Clear. CARDIAC: Regular. Normal S1, S2. ABDOMEN: Soft. No edema. IMPRESSION: 1. COPD. 2. Pleuritic chest pain. 3. Sinus bradycardia that is asymptomatic and associated with medications. 4. Degenerative disk disease. PLAN: 1. Outpatient followup. 2. Cautious continuation on diltiazem. 3. May need to adjust therapy if bradycardia progresses or asymptomatic in the future. 4. We will follow as an outpatient. Moe Leblanc M.D. DR: CUAUHTEMOC JOB#: [id number] CC:
== END 2018-05-21 13:18 | disposition home or self-care (01) | DRG 291 ==
LOC: EMR 17:31 → 2E 17:45 → EDBEDREQ 18:53 → 2E 05-15 13:24
DX: I11.0 Hypertensive heart disease with heart failure (principal); K83.1 Obstruction of bile duct; J44.1 Chronic obstructive pulmonary disease with (acute) exacerbation; E87.2 Acidosis; J20.9 Acute bronchitis, unspecified; I50.33 Acute on chronic diastolic (congestive) heart failure; Z88.8 Allergy status to other drugs, medicaments and biological substances; G89.29 Other chronic pain; M54.9 Dorsalgia, unspecified; I48.0 Paroxysmal atrial fibrillation; R07.81 Pleurodynia
CPT/HCPCS: 36415; 36600; 71045; 76700; 80053; 81003; 82550; 82553; 82803; 83605; 83690; 83735; 83880; 84132; 84443; 84484; 85007; 85025; 86710; 87040; 90732; 93005; 93306; 94640; 94664; 94760; 96374; 99285; J7620

== ENCOUNTER 2018-06-14 14:15 | Emergency (ER) | payer MEDICARE, MEDICAID ==
[~2018-06-14] VITALS: Ht 167.6 cm; Wt 63.0 kg
[~2018-06-14 14:15] MED LIST changes: +CARDIZEM CD120 MG ORAL; +DILT-XR180 MG PO; +ELIQUIS2.5 MG ORAL; +GABAPENTIN100 MG ORAL; +PROTONIX40 MG ORAL
[2018-06-14] MEDS ORDERED: TIZANIDINE HCL4 M2 ORAL (14:24)
[2018-06-14] MEDS ORDERED: PREDNISONE10 M2 PO (14:24)
[2018-06-14 14:30] VITALS: BP 171/84
--- NOTE | 2018-06-14 14:30 | NUR ---
ED Nurse Note: Pt walked in to ER c/o coughing and noticing edema on BLE for 3 days. pt occasionally coughing without phlem but no SOB noted. BLE edema present with pitting +2. pt c/o numbness on BLE 10/17. pt aao x4 and ambulatory. pt reported she has not taken water pill due to worrying of losing weight. skin ashen but no wound noted.
[2018-06-14] MEDS ORDERED: Albuterol/Ipratropium 3ml neb HHN ONE (15:00)
--- NOTE | 2018-06-14 15:13 | Emergency Room Report ---
History of Present Illness General Chief Complaint: Edema Source: Patient Present Illness HPI Patient is a 77-year-old female presented after increased lower extremity swelling. Patient gradual onset of symptoms. Patient a prior history of congestive heart failure as well as COPD. She reports of increased bilateral lower extremity swelling and some mild increased difficulty breathing. Patient had run out of her albuterol medication. Allergies: Coded Allergies: SETH INHIBITORS (Verified Allergy, Unknown, 03/04/16) Patient History Reviewed Nursing Documentation: PMH: Agreed; PSxH: Agreed Nursing Documentation-PMH Hx Cardiac Problems: Yes - CHF Hx Hypertension: Yes Hx Asthma: Yes Hx COPD: Yes Hx Cancer: No Hx Gastrointestinal Problems: No Hx Neurological Problems: No Review of Systems All Other Systems: negative except mentioned in HPI Physical Exam Vital Signs Date Time Temp Pulse Resp B/P (MAP) Pulse Ox O2 Delivery O2 Flow Rate FiO2 06/14/18 14:20 98.8 71 22 171/84 95 Room Air Sp02 EP Interpretation: reviewed, normal General Appearance: normal inspection, well appearing, no apparent distress, alert, GCS 15, non-toxic Head: atraumatic ENT: normal ENT inspection, hearing grossly normal, normal voice Neck: normal inspection, full range of motion, supple, no bony tend Respiratory: normal inspection, no respiratory distress, no retraction Cardiovascular #1: regular rate, rhythm, no edema Gastrointestinal: normal inspection, normal bowel sounds, non tender, soft, no guarding, no hernia Genitourinary: no CVA tenderness Musculoskeletal: normal inspection, back normal, normal range of motion, swelling - bilateral lower extremity Neurologic: normal inspection, alert, oriented x3, responsive, aviation engineer III-XII nml as tested, speech normal Psychiatric: normal inspection, judgement/insight normal, mood/affect normal Skin: normal inspection, normal color, no rash Medical Decision Making Diagnostic Impression: Primary Impression: COPD exacerbation ER Course Patient presented for lower extremity swelling. Differential diagnosis includes is not limited to dependent edema, cellulitis, CHF, among others. Chest x-ray showed cardiomegaly with COPD changes. Patient noted to have improvement in her breathing after breathing treatment as well as prednisone. patient was given oral Lasix. Patient states that she had previously been prescribed Lasix but did not want to take this. Patient was advised to follow- up with Dr. Hassan for recheck she is advised to return if she began having any worsening of condition. Last Vital Signs Date Time Temp Pulse Resp B/P (MAP) Pulse Ox O2 Delivery O2 Flow Rate FiO2 06/14/18 14:20 98.8 71 22 171/84 95 Room Air Status: improved Disposition: HOME, SELF-CARE Condition: Stable Scripts Prednisone* (PREDNISONE*) 20 Mg Tablet 40 MG ORAL DAILY, #10 TAB Prov: J Carlos Mathew MD 06/14/18 Hydrochlorothiazide* (HYDROCHLOROTHIAZIDE*) 25 Mg Tablet 25 MG ORAL DAILY, #30 TAB Prov: J Carlos Mathew MD 06/14/18 Albuterol Sulfate* (ALBUTEROL SULFATE HHN*) 2.5 Mg/3 Ml Vial.neb 2.5 MG HHN Q4H PRN for Shortness of Breath, #25 VIAL Prov: J Carlos Mathew MD 06/14/18 J Carlos Mathew MD Jun 14, 2018 15:13
[2018-06-14] MEDS ORDERED: HYDROCHLOROTHIA25 MG ORAL (15:35)
[2018-06-14] MEDS ORDERED: ALBUTEROL2.5 MG/3 M HHN (15:35)
[2018-06-14] MEDS ORDERED: PREDNISONE20 MG ORAL (15:36)
[2018-06-14] MEDS ORDERED: Furosemide 40mg tab ORAL ONE (15:45)
[2018-06-14 16:20] VITALS: BP 162/72
--- NOTE | 2018-06-14 16:20 | NUR ---
ER DISCHARGE NOTE: Patient is cleared to be discharged per ERMD, pt is aox4, on room air, with stable vital signs. pt was given dc and prescription instructions, pt was able to verbalize understanding, pt id band removed. pt is able to ambulate with steady gait. pt took all belongings.
--- NOTE | 2018-06-15 11:47 | Diagnostic Imaging Report ---
Indication: Shortness of breath Technique: One view of the chest Comparison: 05/14/2018 Findings: Patient is slightly rotated to the right. There is again demonstrated prominence to the right pulmonary hilum as well as to the right paratracheal soft tissues. This appears similar to the previous exam. There is some atelectasis or scarring at the left lung base, appearing similar to the previous exam. There is slight blunting of the right costophrenic sulcus. There is surgical hardware at the thoracolumbar junction. What may be shrapnel fragments are seen in the left supraclavicular region. Impression: Possible small right pleural effusion No definite acute process otherwise Left basilar atelectasis versus scarring Right hilar fullness, demonstrated on prior chest CT angiogram to represent a dilated pulmonary artery Right paratracheal fullness is presumably an artifact of rotation as no mediastinal mass demonstrated on recent chest CT angiogram Borderline cardiomegaly
--- NOTE | 2018-06-15 19:40 | Cardiology Report ---
APPROVED REPORT EKG Measurement Heart [id number] Sinus bradycardia Possible Anterior infarct, age undetermined Abnormal ECG
== END 2018-06-14 16:20 | disposition home or self-care (01) ==
LOC: EMR 15:17
DX: J44.1 Chronic obstructive pulmonary disease with (acute) exacerbation (principal); I11.0 Hypertensive heart disease with heart failure; I50.9 Heart failure, unspecified
CPT/HCPCS: 71045; 93005; 94640; 94664; 99284; J7512; J7620

== ENCOUNTER 2018-08-11 23:57 | Inpatient (IN) | payer MEDICARE, MEDICAID ==
[~2018-08-11] VITALS: Ht 165.1 cm; Wt 59.6 kg
[~2018-08-11 23:57] MED LIST changes: +ALBUTEROL2.5 MG/3 M HHN; +HYDROCHLOROTHIA25 MG ORAL; +PREDNISONE10 M2 PO; +TIZANIDINE HCL4 M2 ORAL
[2018-08-12] VITALS (7 sets, daily range): BP systolic 133–156; BP diastolic 76–91
[2018-08-12] MEDS ORDERED: Solu-MEDROL 125mg Inj IVP ONE (00:15)
[2018-08-12] MEDS ORDERED: Ipratropium 0.02% Inh Soln 2.5ml UD HHN ONE (00:15)
[2018-08-12] MEDS ORDERED: Albuterol ud Inhalation HHN ONE (00:15)
--- NOTE | 2018-08-12 00:17 | Emergency Room Report ---
History of Present Illness General Chief Complaint: Dyspnea/Respdistress Source: Patient, Medical Record Present Illness HPI This is a 78-year-old female with a history of COPD and CHF. She presents with chief complaint of shortness of breath. Onset for over a week. Worsen tonight. She says she been out of her medication for almost a month. She is out of her albuterol as well as her chronic medication. Denies any fever chills. Worse with exertion. Better with rest. Has wheezing. Has chest pain. Denies any recent smoking. Similar symptom in the past. Allergies: Coded Allergies: SETH INHIBITORS (Verified Allergy, Unknown, 03/04/16) Patient History Past Medical History: see triage record, old chart reviewed, CHF, COPD Past Surgical History: other Pertinent Family History: none Social History: Denies: smoking - Quit in March Last Menstrual Period: na Now: No : 5 Para: 3 Immunizations: other Reviewed Nursing Documentation: PMH: Agreed; PSxH: Agreed Nursing Documentation-PMH Hx Cardiac Problems: Yes - CHF Hx Hypertension: Yes Hx Asthma: Yes Hx COPD: Yes Hx Cancer: No Hx Gastrointestinal Problems: No Hx Neurological Problems: No Review of Systems Eye: Denies: eye pain, blurred vision ENT: Denies: ear pain, nose congestion, throat swelling Respiratory: Reports: cough, shortness of breath, wheezing Cardiovascular: Denies: chest pain, palpitations Gastrointestinal: Denies: abdominal pain, diarrhea, nausea, vomiting Musculoskeletal: Denies: back pain, joint pain Skin: Denies: rash Neurological: Denies: headache, numbness Endocrine: Denies: increased thirst, increased urine Hematologic/Lymphatic: Denies: easy bruising All Other Systems: negative except mentioned in HPI Physical Exam Vital Signs Date Time Temp Pulse Resp B/P (MAP) Pulse Ox O2 Delivery O2 Flow Rate FiO2 08/11/18 23:59 99.3 74 19 145/86 (105) 73 Room Air vitals with hypoxia Sp02 EP Interpretation: reviewed, abnormal General Appearance: alert, moderate distress, thin, Chronically Ill Head: normocephalic, atraumatic Eyes: bilateral eye PERRL, bilateral eye EOMI ENT: hearing grossly normal, normal pharynx Neck: full range of motion, supple, no meningismus Respiratory: chest non-tender, respiratory distress, decreased breath sounds, accessory muscle use, wheezing Cardiovascular #1: regular rate, rhythm, no murmur Gastrointestinal: normal bowel sounds, non tender, no mass, no organomegaly, no bruit, non-distended Musculoskeletal: back normal, gait/station normal, normal range of motion Psychiatric: mood/affect normal Skin: warm/dry Medical Decision Making Diagnostic Impression: Primary Impression: COPD exacerbation Additional Impressions: Acute and chronic respiratory failure ([id number]) Qualified Codes: J96.21 - Acute and chronic respiratory failure with hypoxia Non-compliance ER Course She presents with acute on chronic respiratory failure secondary COPD exacerbation. Better after BiPAP in that lasted treatment. Patient did not tolerate BiPAP very long. She is more comfortable and was able to wean off to nasal cannula oxygenation. Labs unremarkable. No evidence of ACS, PE, dissection to name a few. We'll admit for further workup. I contacted Dr. Leblanc and Mo for admission. Lab Results Impression labs unremarkable EKG Diagnostic Results Rate: normal Rhythm: NSR ST Segments: no acute changes Rhythm Strip Diag. Results EP Interpretation: yes Rate: 73 Rhythm: NSR, no PVC's, no ectopy Chest X-Ray Diagnostic Results Chest X-Ray Diagnostic Results : Chest X-Ray Ordered: Yes # of Views/Limited/Complete: 1 View Indication: Shortness of Breath EP Interpretation: Yes Interpretation: no consolidation, no effusion, no pneumothorax, no acute cardiopulmonary disease Impression: No acute disease Electronically Signed by: Abdon Booth MD Last Vital Signs Date Time Temp Pulse Resp B/P (MAP) Pulse Ox O2 Delivery O2 Flow Rate FiO2 19 23:59 99.3 74 19 145/86 (105) 73 Room Air Status: improved Disposition: ADMITTED INPATIENT Condition: Serious Referrals: Ej Hassan MD (PCP) Abdon Booth MD Aug 12, 2018 00:17
[2018-08-12 00:38] LABS: HEMATOCRIT 39.3 % (37.0-47.0); HEMOGLOBIN 12.8 G/DL (12.0-16.0); MEAN CORPUSCULAR VOLUME 89 FL (80-99); PLATELET COUNT 171 K/UL (150-450); RED BLOOD COUNT 4.39 M/UL (4.20-5.40); RED CELL DISTRIBUTION WIDTH 13.6 % (11.6-14.8); WHITE BLOOD COUNT 4.3 K/UL (4.8-10.8)
[2018-08-12 00:53] LABS: ANION GAP 10 mmol/L (5-15); BLOOD UREA NITROGEN 10 mg/dL (7-18); CARBON DIOXIDE 27 MMOL/L (21-32); CHLORIDE 100 MMOL/L (98-107); CREATININE 1.1 MG/DL (0.55-1.30); POTASSIUM 3.5 MMOL/L (3.5-5.1); SODIUM 137 MMOL/L (136-145)
[2018-08-12 01:07] LABS: ALANINE AMINOTRANSFERASE 53 U/L (12-78); ALBUMIN 3.3 G/DL (3.4-5.0); ALBUMIN/GLOBULIN RATIO 0.8 (1.0-2.7); ALKALINE PHOSPHATASE 360 U/L (46-116); ASPARTATE AMINO TRANSFERASE 36 U/L (15-37); BILIRUBIN,TOTAL 0.5 MG/DL (0.2-1.0); CKMB 1.6 NG/ML (0.0-3.6); CREATINE KINASE 141 U/L (26-308)
[2018-08-12 01:29] LABS: APPEARANCE,URINE CLEAR; BILIRUBIN, URINE NEGATIVE (NEGATIVE); COLOR,URINE PALE YELLOW; GLUCOSE, URINE (UA) NEGATIVE (NEGATIVE); KETONES,URINE 1+ (NEGATIVE); LEUKOCYTE ESTERASE ,URINE 1+ (NEGATIVE); NITRITE,URINE NEGATIVE (NEGATIVE); PH,URINE 6.5 (4.5-8.0); PROTEIN,URINE 2+ (NEGATIVE); UROBILINOGEN,URINE NORMAL MG/DL (0.0-1.0)
[2018-08-12] MEDS: Albuterol/Ipratropium 3ml neb HHN SCH ×5 (07:22→23:41)
[2018-08-12] MEDS ORDERED: Albuterol ud Inhalation HHN PRN (09:00)
[2018-08-12] MEDS: Eliquis 5mg tablet ORAL SCH ×2 (09:56→17:50)
[2018-08-12] MEDS: dilTIAZem HCl CD 120mg cap ORAL SCH (09:56)
[2018-08-12] MEDS: Solu-MEDROL 125mg Inj IVP SCH ×3 (09:57→23:46)
[2018-08-12] MEDS: cefTRIAXone 1 GM in D5W 55 ML IVPB SCH (10:22)
--- NOTE | 2018-08-12 11:54 | Diagnostic Imaging Report ---
Indication: Dyspnea Comparison: 06/14/2018 A single view chest radiograph was obtained. Findings: Cardiomegaly is present. Spinal hardware noted in the lower thoracic upper lumbar region. No infiltrate identified. IMPRESSION: No acute disease
[2018-08-12] MEDS: Acetaminophen 500mg (ES) tab ORAL PRN (12:06)
--- NOTE | 2018-08-12 12:39 | Diagnostic Imaging Report ---
Indication: Neck Pain Findings: 3 views of the cervical spine were obtained. Moderate degenerative changes of the cervical spine are demonstrated. This is characterized by vertebral endplate osteophyte formation and narrowing of intervertebral discs. There is no acute fracture identified. There is a relative kyphosis of the cervical spine. The open-mouth odontoid view shows an intact dens and good alignment of the lateral masses with respect to the body of C2. There is no soft tissue swelling. Impression: Moderate degenerative spondylosis. No acute injury appreciated
--- NOTE | 2018-08-12 15:09 | Cardiology Report ---
APPROVED REPORT EKG Measurement Heart [id number] [place] [id number] Sinus rhythm with occasional premature ventricular complexes Low voltage QRS Cannot rule out Anterior infarct, age undetermined Abnormal ECG
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
[2018-08-12] MEDS: oxyCODONE HCL/Acetaminophen 5/325mg ORAL PRN (19:57)
[2018-08-13] VITALS: BP 128/73
[2018-08-13] MEDS: Albuterol/Ipratropium 3ml neb HHN SCH ×6 (03:29→22:31)
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
[2018-08-13 04:00] VITALS: BP 153/81
[2018-08-13 08:00] VITALS: BP 139/87
[2018-08-13] MEDS: Solu-MEDROL 125mg Inj IVP SCH (08:25)
[2018-08-13] MEDS: LORazepam 1mg tab ORAL PRN (08:26)
[2018-08-13] MEDS: dilTIAZem HCl CD 120mg cap ORAL SCH (08:26)
[2018-08-13] MEDS: Eliquis 5mg tablet ORAL SCH ×2 (08:26→17:34)
[2018-08-13] MEDS: oxyCODONE HCL/Acetaminophen 5/325mg ORAL PRN (08:31)
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
[2018-08-13] MEDS ORDERED: Solu-MEDROL 125mg Inj IVP SCH ×2 (09:00→21:00)
[2018-08-13] MEDS: cefTRIAXone 1 GM in D5W 55 ML IVPB SCH (09:07)
[2018-08-13 12:00] VITALS: BP 120/73
[2018-08-13 16:00] VITALS: BP 139/88
[2018-08-13 20:00] VITALS: BP 141/78
[2018-08-14] VITALS: BP 128/70
[2018-08-14] MEDS: Albuterol/Ipratropium 3ml neb HHN SCH ×7 (03:00→22:38)
[2018-08-14 03:56] VITALS: BP 128/75
[2018-08-14] MEDS: oxyCODONE HCL/Acetaminophen 5/325mg ORAL PRN ×3 (06:11→22:03)
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
[2018-08-14 08:00] VITALS: BP 118/70
[2018-08-14] MEDS: Eliquis 5mg tablet ORAL SCH ×2 (09:50→17:44)
[2018-08-14] MEDS: dilTIAZem HCl CD 120mg cap ORAL SCH (09:50)
[2018-08-14] MEDS: Solu-MEDROL 125mg Inj IVP SCH (09:51)
[2018-08-14] MEDS: cefTRIAXone 1 GM in D5W 55 ML IVPB SCH (09:53)
[2018-08-14 12:00] VITALS: BP 132/78
[2018-08-14 16:00] VITALS: BP 148/83
--- NOTE | 2018-08-14 17:46 | Diagnostic Imaging Report ---
Indications: hip pain Findings: 2 views of both hips were obtained. Bones are osteopenic. There is no fracture or malalignment. There is generalized joint space narrowing in both hips. IMPRESSION: No acute injury. Osteoarthritis
[2018-08-14 20:00] VITALS: BP 149/93
[2018-08-14] MEDS: LORazepam 1mg tab ORAL PRN (21:17)
[2018-08-15] VITALS: BP 141/74
[2018-08-15] MEDS: Albuterol/Ipratropium 3ml neb HHN SCH ×6 (03:19→22:26)
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
[2018-08-15 04:00] VITALS: BP 121/61
[2018-08-15 08:00] VITALS: BP 140/89
[2018-08-15] MEDS: dilTIAZem HCl CD 120mg cap ORAL SCH (09:08)
[2018-08-15] MEDS: Eliquis 5mg tablet ORAL SCH ×2 (09:09→18:32)
[2018-08-15] MEDS: cefTRIAXone 1 GM in D5W 55 ML IVPB SCH (09:10)
[2018-08-15] MEDS: Solu-MEDROL 125mg Inj IVP SCH (09:10)
--- NOTE | 2018-08-15 10:38 | General Progress Note ---
Assessment/Plan Problem List: (1) Chest pain ICD Codes: R07.9 - Chest pain, unspecified SNOMED: 89908077 (2) COPD exacerbation ICD Codes: J44.1 - Chronic obstructive pulmonary disease with (acute) exacerbation SNOMED: 887322040 Status: stable Assessment/Plan: GI called wean iv steroids cont resp rx o2 anxiolytics Subjective ROS Limited/Unobtainable: No Constitutional: Reports: malaise, weakness HEENT: Reports: no symptoms Cardiovascular: Reports: no symptoms Respiratory: Reports: cough, shortness of breath Gastrointestinal/Abdominal: Reports: abdominal pain Genitourinary: Reports: no symptoms Neurologic/Psychiatric: Reports: no symptoms Endocrine: Reports: no symptoms Hematologic/Lymphatic: Reports: no symptoms Allergies: Coded Allergies: SETH INHIBITORS (Verified Allergy, Unknown, 03/04/16) All Systems: reviewed and negative except above Subjective c/o abd pain. wants to have biliary stent removed. Objective Last 24 Hour Vital Signs Date Time Temp Pulse Resp B/P (MAP) Pulse Ox O2 Delivery O2 Flow Rate FiO2 08/15/18 09:08 83 140/89 08/15/18 09:00 Nasal Cannula 2.0 Nasal Cannula 2.0 08/15/18 08:00 97.8 83 19 140/89 (106) 93 08/15/18 07:58 81 16 95 Nasal Cannula 2.0 08/15/18 07:46 96 Nasal Cannula 2.0 28 08/15/18 07:46 78 18 96 Nasal Cannula 2.0 28 08/15/18 04:00 97.7 71 18 121/61 (81) 97 08/15/18 03:36 85 18 96 Nasal Cannula 2.0 28 08/15/18 03:19 84 18 93 Nasal Cannula 2.0 28 08/15/18 00:00 98.0 62 16 141/74 (96) 95 08/14/18 23:05 70 18 98 Nasal Cannula 2.0 08/14/18 22:40 67 18 96 Nasal Cannula 2.0 08/14/18 21:00 Nasal Cannula 2.0 Nasal Cannula 2.0 08/14/18 20:00 98.4 78 18 149/93 (111) 99 08/14/18 19:55 75 18 95 Nasal Cannula 2.0 08/14/18 19:35 92 Nasal Cannula 2.0 28 08/14/18 19:33 71 18 92 Nasal Cannula 2.0 28 08/14/18 18:14 98.4 08/14/18 16:00 98.4 58 12 148/83 (104) 97 08/14/18 15:17 58 18 99 Nasal Cannula 2.0 28 08/14/18 15:09 56 18 97 Nasal Cannula 2.0 28 08/14/18 12:00 97.8 68 14 132/78 (96) 100 08/14/18 11:21 74 18 98 Nasal Cannula 2.0 28 08/14/18 11:16 75 18 95 Nasal Cannula 2.0 28 Intake and Output 08/14/18 08/15/18 19:00 07:00 Intake Total 655 ml 240 ml Balance 655 ml 240 ml Intake Oral 600 ml 240 ml IV Total 55 ml # Voids 3 1 # Bowel Movements 1 Height (Feet): 5 Height (Inches): 5.00 Weight (Pounds): 128 Objective General Appearance: WD/WN, alert, mild distress Neck: supple Cardiovascular: normal rate, regular rhythm Respiratory/Chest: expiratory wheezing Abdomen: normal bowel sounds, non tender, soft, no organomegaly Edema: no edema noted Arm (L), no edema noted Arm (R), no edema noted Leg (L), no edema noted Leg (R), no edema noted Pedal (L), no edema noted Pedal (R), no edema noted Generalized jE Hassan MD Aug 15, 2018 10:38
[2018-08-15 12:00] VITALS: BP 144/91
[2018-08-15 16:00] VITALS: BP 139/72
[2018-08-15 20:00] VITALS: BP 119/57
[2018-08-15] MEDS: oxyCODONE HCL/Acetaminophen 5/325mg ORAL PRN (22:20)
[2018-08-16] VITALS (7 sets, daily range): BP systolic 132–152; BP diastolic 73–85
[2018-08-16] MEDS: Albuterol/Ipratropium 3ml neb HHN SCH ×6 (02:30→23:03)
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
--- NOTE | 2018-08-16 08:15 | Consultation ---
DATE OF CONSULTATION: 08/15/2018 HISTORY OF PRESENT ILLNESS: The patient is a 78-year-old female with a history of anxiety and depression who has been admitted to the hospital for medical stabilization. The patient has a history of hypertension, COPD, chronic back pain, anxiety, and depression. Target symptoms include cognitive impairment, fatigue, low energy, and mild confusion. The patient did not know the date or the year. The patient stated she is worried all the time and has some insomnia. PAST PSYCHIATRIC HISTORY: Anxiety disorder, insomnia, and depression. PAST MEDICAL HISTORY: COPD, hypertension, lower back pain, and atrial fibrillation. ALLERGIES: SETH inhibitors. SUBSTANCE ABUSE HISTORY: Prior smoker. No illicit drug use or alcohol. MENTAL STATUS EXAMINATION: The patient is alert and oriented times self and place and however did not know the date nor the month. Mood is anxious. Affect is constricted. Congruent mood. Thought process is linear. Thought content, no suicidal or homicidal ideation. Memory is impaired. Insight and judgment is fair. ASSESSMENT: [place] I Anxiety disorder. Major depressive disorder by history. [place] II Deferred. [place] III As above. [place] IV Low. [place] V 50. PLAN: 1. We will start the patient on Lexapro 10 mg in the morning and Ativan p.r.n. 2. Provide the patient with supportive therapy. 3. Discussed with the nurse. Valery Lundberg M.D. DR: KRYSTAL JOB#: [id number] CC:
[2018-08-16] MEDS: dilTIAZem HCl CD 120mg cap ORAL SCH (08:57)
[2018-08-16] MEDS: Eliquis 5mg tablet ORAL SCH ×2 (08:57→17:58)
[2018-08-16] MEDS: cefTRIAXone 1 GM in D5W 55 ML IVPB SCH (08:58)
[2018-08-16] MEDS ORDERED: Solu-MEDROL 40mg Inj IVP SCH (09:00)
--- NOTE | 2018-08-16 11:01 | General Progress Note ---
Assessment/Plan Problem List: (1) Chest pain ICD Codes: R07.9 - Chest pain, unspecified SNOMED: [id number] (2) COPD exacerbation ICD Codes: J44.1 - Chronic obstructive pulmonary disease with (acute) exacerbation SNOMED: 371074658 Status: stable Assessment/Plan: GI eval pending wean iv steroids cont resp rx o2 anxiolytics Subjective ROS Limited/Unobtainable: No Constitutional: Reports: weakness HEENT: Reports: no symptoms Cardiovascular: Reports: no symptoms Respiratory: Reports: cough, shortness of breath Gastrointestinal/Abdominal: Reports: no symptoms Genitourinary: Reports: no symptoms Neurologic/Psychiatric: Reports: no symptoms Endocrine: Reports: no symptoms Hematologic/Lymphatic: Reports: no symptoms Allergies: Coded Allergies: SETH INHIBITORS (Verified Allergy, Unknown, 03/04/16) All Systems: reviewed and negative except above Subjective no new complaints. less sob. no chest pain . Objective Last 24 Hour Vital Signs Date Time Temp Pulse Resp B/P (MAP) Pulse Ox O2 Delivery O2 Flow Rate FiO2 08/16/18 10:36 62 16 99 Nasal Cannula 2.0 28 08/16/18 10:28 58 18 98 Nasal Cannula 2.0 28 08/16/18 09:00 Nasal Cannula 2.0 Nasal Cannula 2.0 08/16/18 08:57 62 143/85 08/16/18 08:57 62 143/85 08/16/18 08:00 97.9 62 19 143/85 (104) 95 08/16/18 06:47 60 16 98 Nasal Cannula 2.0 28 08/16/18 06:41 95 Nasal Cannula 2.0 28 08/16/18 06:40 62 18 95 Nasal Cannula 2.0 28 08/16/18 04:00 97.7 66 17 139/84 (102) 93 08/16/18 02:40 61 16 99 Nasal Cannula 2.0 28 08/16/18 02:30 62 18 97 Nasal Cannula 2.0 28 08/16/18 00:00 97.6 61 18 139/73 (95) 99 08/15/18 22:36 63 16 99 Nasal Cannula 2.0 28 08/15/18 22:26 60 18 96 Nasal Cannula 2.0 28 08/15/18 21:00 Nasal Cannula 2.0 Nasal Cannula 2.0 08/15/18 20:00 97.7 63 16 119/57 (77) 95 08/15/18 19:40 78 16 98 Nasal Cannula 2.0 28 08/15/18 19:31 94 Nasal Cannula 2.0 28 08/15/18 19:29 61 18 97 Room Air 21 08/15/18 16:00 98.4 68 17 139/72 (94) 93 08/15/18 15:14 83 16 96 Room Air 21 08/15/18 15:05 69 15 96 Room Air 21 08/15/18 12:00 98.9 105 20 144/91 (108) 92 08/15/18 11:50 Room Air 08/15/18 11:50 Room Air Intake and Output 08/15/18 08/16/18 19:00 07:00 Intake Total 605 ml 240 ml Balance 605 ml 240 ml Intake Oral 550 ml 240 ml IV Total 55 ml # Voids 2 2 Height (Feet): 5 Height (Inches): 5.00 Weight (Pounds): 128 Objective General Appearance: WD/WN, alert, mild distress Neck: supple Cardiovascular: normal rate, regular rhythm Respiratory/Chest: expiratory wheezing Abdomen: normal bowel sounds, non tender, soft, no organomegaly Edema: no edema noted Arm (L), no edema noted Arm (R), no edema noted Leg (L), no edema noted Leg (R), no edema noted Pedal (L), no edema noted Pedal (R), no edema noted Generalized Ej Hassan MD Aug 16, 2018 11:01
--- NOTE | 2018-08-16 12:02 | General Progress Note ---
Assessment/Plan Status: stable Assessment/Plan: GI CONSULT Dictated Patient with an old metal stent which would not be removable Will check KUB to confirm stent type Patient with chronic abd pain which may require further w/u with EGD, CT and HIDA Thank you Raheel Noble MD Subjective Allergies: Coded Allergies: SETH INHIBITORS (Verified Allergy, Unknown, 03/04/16) Objective Last 24 Hour Vital Signs Date Time Temp Pulse Resp B/P (MAP) Pulse Ox O2 Delivery O2 Flow Rate FiO2 08/16/18 10:36 62 16 99 Nasal Cannula 2.0 28 08/16/18 10:28 58 18 98 Nasal Cannula 2.0 28 08/16/18 09:00 Nasal Cannula 2.0 Nasal Cannula 2.0 08/16/18 08:57 62 143/85 08/16/18 08:57 62 143/85 08/16/18 08:00 97.9 62 19 143/85 (104) 95 08/16/18 06:47 60 16 98 Nasal Cannula 2.0 28 08/16/18 06:41 95 Nasal Cannula 2.0 28 08/16/18 06:40 62 18 95 Nasal Cannula 2.0 28 08/16/18 04:00 97.7 66 17 139/84 (102) 93 08/16/18 02:40 61 16 99 Nasal Cannula 2.0 28 08/16/18 02:30 62 18 97 Nasal Cannula 2.0 28 08/16/18 00:00 97.6 61 18 139/73 (95) 99 08/15/18 22:36 63 16 99 Nasal Cannula 2.0 28 08/15/18 22:26 60 18 96 Nasal Cannula 2.0 28 08/15/18 21:00 Nasal Cannula 2.0 Nasal Cannula 2.0 08/15/18 20:00 97.7 63 16 119/57 (77) 95 08/15/18 19:40 78 16 98 Nasal Cannula 2.0 28 08/15/18 19:31 94 Nasal Cannula 2.0 28 08/15/18 19:29 61 18 97 Room Air 21 08/15/18 16:00 98.4 68 17 139/72 (94) 93 08/15/18 15:14 83 16 96 Room Air 21 08/15/18 15:05 69 15 96 Room Air 21 08/15/18 12:00 98.9 105 20 144/91 (108) 92 Intake and Output 08/15/18 08/16/18 19:00 07:00 Intake Total 605 ml 240 ml Balance 605 ml 240 ml Intake Oral 550 ml 240 ml IV Total 55 ml # Voids 2 2 Height (Feet): 5 Height (Inches): 5.00 Weight (Pounds): 128 Dm Noble MD Aug 16, 2018 12:02
[2018-08-16] MEDS ORDERED: PREDNISONE2.5 MG ORAL (17:30)
[2018-08-16] MEDS ORDERED: OXTELLAR XR150 MG ORAL (17:30)
[2018-08-16] MEDS ORDERED: CLOTRIMAZOLE15 GM TOPIC (17:30)
[2018-08-16] MEDS ORDERED: DICLOFENAC SOD100 GM TP (17:30)
[2018-08-16] MEDS ORDERED: TEMAZEPAM15 MG ORAL (17:30)
[2018-08-16] MEDS ORDERED: VITAMIN D250000 UNI1 ORAL (17:30)
[2018-08-16] MEDS ORDERED: OMEPRAZOLE20 M2 ORAL (17:30)
[2018-08-16] MEDS ORDERED: BREO ELLIPTA 11 EACH IH (17:30)
[2018-08-16] MEDS ORDERED: CHLORTHALIDONE25 MG ORAL (17:30)
[2018-08-16] MEDS: oxyCODONE HCL/Acetaminophen 5/325mg ORAL PRN (17:59)
--- NOTE | 2018-08-16 23:15 | Consultation ---
DATE OF CONSULTATION: 08/16/2018 GASTROENTEROLOGY CONSULTATION REPORT CHIEF COMPLAINT: I was asked to see this patient by Dr. Hassan and Dr. Leblanc for evaluation of the biliary stent. HISTORY OF PRESENT ILLNESS: The patient is a pleasant 78-year-old woman who comes in to the hospital for evaluation. The patient has also been noted to have a biliary stent and she has asked for the stent to be removed. She complains of chronic right upper quadrant abdominal pain, which has been going on back to perhaps 10 years. She recalls having had a stent put in 10 years ago and she personally cannot recall when or where, but apparently review of medical records earlier this year showed that it was placed by Dr. Burr about 10 years ago, and at that time, it was a metal stent. The patient was previously advised that the stent could therefore not be removed. However, I do not see any radiologic confirmation of the stent type in the computer. Ultrasound done in April of this year does show some degree of biliary ductal dilatation, and therefore, the stent especially was placed for some degree of obstructive process. The patient states that her pain is constant and has no relationship to any meals. PAST MEDICAL HISTORY: Remarkable for history of acute coronary syndrome, history of respiratory failure, COPD, hypertension, history of paroxysmal atrial fibrillation, chronic low back pain. FAMILY HISTORY: Noncontributory. SOCIAL HISTORY: The patient lives at home and her daughter looks after her affairs. She is a previous smoker. She does not drink or use drugs. ALLERGIES: SETH inhibitors. REVIEW OF SYSTEMS: Otherwise negative. PHYSICAL EXAMINATION: GENERAL: A pleasant woman, seen in her room. HEENT: Normocephalic and atraumatic. Sclerae anicteric. Oropharynx is clear. NECK: Supple. CHEST: Revealed coarse breath sounds. CARDIOVASCULAR: Revealed regular rate. ABDOMEN: Soft. Good bowel sounds. There was some right upper quadrant tenderness to palpation. EXTREMITIES: Revealed no edema. LABORATORY DATA: Noted. ASSESSMENT: This patient has a chronic biliary stent, which may not be removable if it is metal in nature. The etiology of the patient's right upper quadrant tenderness is unclear, but she may require CT scan of the area to better evaluate her symptoms. In the meantime, I will order a simple KUB first to confirm the nature of the stent. The CT scan can be ordered for tomorrow. RECOMMENDATIONS: 1. Monitor the patient's symptoms. 2. Check KUB to evaluate the nature of the stent. 3. Consider CT scan this week to evaluate the patient's chronic abdominal pain. This patient has had an old stent placed in the biliary tree, which by report is metal and therefore not removable. I will order a KUB to confirm the type of the stent since there are no imaging studies to confirm this. The etiology of the patient's right upper quadrant tenderness is not clear, but she may require further GI workup including endoscopy, colonoscopy, and CT scan. This workup can be decided on once KUB is completed. The patient also had a mild degree of elevated alkaline phosphatase, which is improved. The patient's pain does not change with food according to own history, but a HIDA scan can also be done to evaluate the gallbladder for chronic cholecystitis. RECOMMENDATIONS: 1. Continue current management. 2. Check simple KUB to confirm the nature of previous stent placed. 3. Further gastrointestinal workup for chronic abdominal pain per above discussion. Thank you for asking me to participate in the care of this patient. Dm Noble M.D. DR: Jessica JOB#: [id number] CC:
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
[2018-08-17] MEDS: Albuterol/Ipratropium 3ml neb HHN SCH ×3 (03:11→23:09)
--- NOTE | 2018-08-17 03:15 | Progress Note ---
DATE: 08/17/2018 SUBJECTIVE: The patient is in bed. Has some anxiety, however, doing better today. No pain. Appetite is adequate. Depressed mood, anhedonia, hopelessness. MENTAL STATUS EXAM: The patient is alert and oriented x3. Mood is anxious and depressed. Affect is blunted. Congruent mood and appropriate. Thought process is concrete, however, coherent. Thought content, no suicidal or homicidal ideation. No auditory or visual hallucinations. Insight and judgment is fair. PLAN: 1. The patient will be continued on current medications. 2. Provide the patient with reality orientation and supportive therapy. We will continue to follow and adjust the medication. . Valery Lundberg M.D. DR: ANGELA JOB#: [id number] CC:
[2018-08-17 04:00] VITALS: BP 157/81
[2018-08-17] MEDS: oxyCODONE HCL/Acetaminophen 5/325mg ORAL PRN ×3 (06:01→23:49)
[2018-08-17 08:00] VITALS: BP 141/80
[2018-08-17] MEDS: Eliquis 5mg tablet ORAL SCH ×2 (08:50→18:22)
[2018-08-17] MEDS: cefTRIAXone 1 GM in D5W 55 ML IVPB SCH (08:50)
[2018-08-17] MEDS: dilTIAZem HCl CD 120mg cap ORAL SCH (08:50)
--- NOTE | 2018-08-17 09:53 | GI Progress Note ---
Assessment/Plan Problems: (1) Abdominal pain ICD Codes: R10.9 - Unspecified abdominal pain SNOMED: 12856078 (2) Common bile duct obstruction secondary to biliary stent ICD Codes: K83.1 - Obstruction of bile duct SNOMED: 74783313 Status: stable, unchanged Status Narrative Discussed with Dr. Pedroza. Assessment/Plan RECOMMENDATIONS: 1. Monitor the patient's symptoms. 2. Check KUB to evaluate the nature of the stent, reported as permanent metallic stent. fu KUB, consider APCT will consider EGD/colonoscopy pending work up pain mgmt ppi trend alk phos KUB reviewed. okay for DC per GI standpoint, patient would benefit from EGD/colonoscopy as outpatient to evaluate her chronic abdominal pain. The patient was seen and examined at bedside and all new and available data was reviewed in the patients chart. I agree with the above findings, impression and plan. (Patient seen earlier today. Signature stamp does not reflect patient encounter time.). - Shawn Pedroza MD Subjective Subjective sharp abdominal pain Objective Last 24 Hour Vital Signs Date Time Temp Pulse Resp B/P (MAP) Pulse Ox O2 Delivery O2 Flow Rate FiO2 08/17/18 09:00 Nasal Cannula 2.0 Nasal Cannula 2.0 08/17/18 08:51 63 141/80 08/17/18 08:50 63 141/80 08/17/18 08:00 98.4 63 18 141/80 (100) 99 08/17/18 07:06 98 Nasal Cannula 2.0 28 08/17/18 07:06 Nasal Cannula 2.0 28 08/17/18 07:06 Nasal Cannula 2.0 28 08/17/18 04:00 98.1 58 18 157/81 (106) 95 08/17/18 03:21 79 18 99 Nasal Cannula 2.0 28 08/17/18 03:11 78 18 97 Nasal Cannula 2.0 28 08/16/18 23:41 98.1 61 16 140/75 (96) 97 08/16/18 23:13 83 18 98 Nasal Cannula 2.0 28 08/16/18 23:03 82 18 97 Nasal Cannula 2.0 28 08/16/18 21:00 Nasal Cannula 2.0 Nasal Cannula 2.0 08/16/18 20:00 98.0 73 20 132/78 (96) 94 08/16/18 19:17 97 Nasal Cannula 2.0 28 08/16/18 19:02 Nasal Cannula 2.0 28 08/16/18 19:01 Nasal Cannula 2.0 28 08/16/18 16:10 98.0 57 19 145/73 (97) 98 08/16/18 15:34 18 16 99 Nasal Cannula 2.0 28 08/16/18 15:24 62 16 94 Nasal Cannula 2.0 28 08/16/18 12:00 98.1 91 19 152/78 (102) 97 08/16/18 10:36 62 16 99 Nasal Cannula 2.0 28 08/16/18 10:28 58 18 98 Nasal Cannula 2.0 28 Intake and Output 08/16/18 08/17/18 18:59 06:59 Intake Total 595 ml 400 ml Balance 595 ml 400 ml Intake Oral 540 ml 400 ml IV Total 55 ml # Voids 3 3 Height (Feet): 5 Height (Inches): 5.00 Weight (Pounds): 128 General Appearance: WD/WN, no apparent distress, alert Cardiovascular: normal rate Respiratory/Chest: normal breath sounds, no respiratory distress Abdominal Exam: normal bowel sounds, non tender, soft Extremities: normal range of motion, non-tender Makenzie Booth NP Aug 17, 2018 09:53
[2018-08-17 12:00] VITALS: BP 123/66
--- NOTE | 2018-08-17 12:22 | Diagnostic Imaging Report ---
Indication: Abdominal pain Comparison: None Single view of the abdomen obtained Findings: Bowel gas pattern is nonspecific. No mass, ectopic calcifications, or abnormal gas collections are identified. Vascular calcifications are present. There is a lower thoracic/upper lumbar spinal hardware present. Bones are osteopenic. Impression: No acute findings
[2018-08-17 16:00] VITALS: BP 145/74
[2018-08-17 20:00] VITALS: BP 129/74
[2018-08-18] VITALS: BP 125/79
--- NOTE | 2018-08-18 02:00 | Discharge Summary ---
DATE OF ADMISSION: 08/12/2018 DATE OF DISCHARGE: 08/17/2018 ADMITTING DIAGNOSES: 1. COPD exacerbation. 2. Hypertension. 3. Chronic back pain. 4. History of biliary stent. DISCHARGE DIAGNOSES: 1. COPD exacerbation. 2. Hypertension. 3. Chronic back pain. 4. History of biliary stent. HOSPITAL COURSE: The patient was admitted with complaints of shortness of breath secondary to COPD exacerbation. She received intravenous steroids, antibiotic therapy, and breathing treatments [id number]. She had slow, but gradual improvement in her chronic obstructive pulmonary disease exacerbation. Her hospital course was complicated by abdominal pain. A gastrointestinal consultation was obtained to evaluate the patient's abdominal pain and stent. It place as it was a long-term metallic stent. The patient's liver function tests were normal. On discharge, she was stable. She will be discharged home and follow up as an outpatient in one to two weeks. DISCHARGE MEDICATIONS: Please see discharge medication list for discharge medications. DIET: Regular. ACTIVITIES: Ad-coy. Ej Hassan M.D. DR: DEANA JOB#: [id number] CC:
[2018-08-18] MEDS: Albuterol/Ipratropium 3ml neb HHN SCH ×6 (02:15→23:23)
--- NOTE | 2018-08-18 02:30 | Progress Note ---
DATE: 08/17/2018 SUBJECTIVE: The patient is having anxiety, depressed mood, anhedonia, and worthlessness. She stated that the depression is worse, requested to increase the dose of antidepressant. I explained to her that it will take two to three weeks to increase the antidepressant. Also, I explained to her that she may have more anxiety if I increase too rapidly and that she may severe side effects. The patient agreed. The patient has psychomotor retardation. Denied any suicidal thoughts. MENTAL STATUS EXAMINATION: The patient is alert and oriented x3. Mood is depressed. Affect is constricted. Congruent with mood. Thought process is linear. Thought content, no suicidal or homicidal ideations. ASSESSMENT: Major depressive disorder. PLAN: We will continue current medication. Provide the patient with reality orientation and supportive therapy. We will continue to follow and adjust the medications. Valery Lundberg M.D. DR: TOMASA JOB#: [id number] CC:
--- NOTE | 2018-08-18 03:45 | Progress Note ---
DATE: 08/17/2018 CARDIOLOGY PROGRESS NOTE SUBJECTIVE: No new complaints. Still feeling dizzy at times. KUB is being performed to evaluate the status of her stent. OBJECTIVE: VITAL SIGNS: Blood pressure 141/80, heart rate 63, and respirations 18. LUNGS: Diminished breath sounds. HEART: Regular rhythm and rate. Normal S1, S2 with a fourth heart sound. ABDOMEN: Soft. EXTREMITIES: Trace edema. IMPRESSION: 1. Paroxysmal atrial fibrillation. 2. Hepatobiliary disease with biliary stent. 3. Chronic obstructive pulmonary disease with exacerbation. 4. Abdominal pain, multifactorial. PLAN: 1. Await CT scan. 2. Gastrointestinal follow up. 3. Full anticoagulation for cardioembolic prophylaxis. 4. Respiratory hygiene to include bronchodilators. 5. Antihypertensive regimen adjusted to consolidate therapies. Moe Leblanc M.D. DR: ROGER JOB#: [id number] CC:
[2018-08-18 04:00] VITALS: BP 146/86
[2018-08-18] MEDS: oxyCODONE HCL/Acetaminophen 5/325mg ORAL PRN ×3 (05:37→20:06)
[2018-08-18 06:47] LABS: BASOPHILS % (AUTO) 0.4 % (0.0-2.0); EOSINOPHILS % (AUTO) 0.2 % (0.0-3.0); HEMATOCRIT 43.2 % (37.0-47.0); HEMOGLOBIN 14.1 G/DL (12.0-16.0); LYMPHOCYTES % (AUTO) 29.6 % (20.0-45.0); MEAN CORPUSCULAR VOLUME 90 FL (80-99); MONOCYTES % (AUTO) 5.6 % (1.0-10.0); NEUTROPHILS % (AUTO) 64.2 % (45.0-75.0); PLATELET COUNT 308 K/UL (150-450); RED BLOOD COUNT 4.81 M/UL (4.20-5.40); RED CELL DISTRIBUTION WIDTH 13.7 % (11.6-14.8); WHITE BLOOD COUNT 10.6 K/UL (4.8-10.8)
[2018-08-18 07:10] LABS: ANION GAP 4 mmol/L (5-15); BLOOD UREA NITROGEN 28 mg/dL (7-18); CALCIUM 9.7 MG/DL (8.5-10.1); CARBON DIOXIDE 37 MMOL/L (21-32); CHLORIDE 98 MMOL/L (98-107); POTASSIUM 3.6 MMOL/L (3.5-5.1); SODIUM 139 MMOL/L (136-145)
[2018-08-18 08:00] VITALS: BP 137/67
[2018-08-18] MEDS: cefTRIAXone 1 GM in D5W 55 ML IVPB SCH (08:28)
[2018-08-18] MEDS: Eliquis 5mg tablet ORAL SCH ×2 (08:29→17:26)
[2018-08-18] MEDS: dilTIAZem HCl CD 180mg cap ORAL SCH (09:01)
--- NOTE | 2018-08-18 10:35 | GI Progress Note ---
Assessment/Plan Problems: (1) Abdominal pain ICD Codes: R10.9 - Unspecified abdominal pain SNOMED: 38287811 (2) Common bile duct obstruction secondary to biliary stent ICD Codes: K83.1 - Obstruction of bile duct SNOMED: 29819216 Status: stable Status Narrative Discussed with Dr. Pedroza Assessment/Plan symptomatic treatment okay for DC per GI standpoint KUB d/w with radiologist, confirmed presence of metallic biliary stent okay for DC per GI standpoint, patient would benefit from EGD/colonoscopy as outpatient to evaluate her chronic abdominal pain. The patient was seen and examined at bedside and all new and available data was reviewed in the patients chart. I agree with the above findings, impression and plan. (Patient seen earlier today. Signature stamp does not reflect patient encounter time.). - Shawn Pedroza MD Subjective Subjective Abdominal pain is improved Objective Last 24 Hour Vital Signs Date Time Temp Pulse Resp B/P (MAP) Pulse Ox O2 Delivery O2 Flow Rate FiO2 08/18/18 09:01 96 137/67 08/18/18 08:06 Room Air Room Air 08/18/18 08:00 98.2 96 20 137/67 (90) 93 08/18/18 07:30 Nasal Cannula 08/18/18 07:30 Nasal Cannula 08/18/18 07:30 97 Nasal Cannula 2.0 28 08/18/18 04:00 97.6 81 18 146/86 (106) 94 08/18/18 02:23 59 16 98 Nasal Cannula 2.0 28 08/18/18 02:15 79 20 93 Nasal Cannula 2.0 28 08/18/18 00:00 97.8 70 16 125/79 (94) 96 08/17/18 23:18 71 18 96 Nasal Cannula 2.0 28 08/17/18 23:09 63 20 92 Nasal Cannula 2.0 28 08/17/18 21:03 67 20 98 Nasal Cannula 2.0 28 08/17/18 20:53 61 20 94 Nasal Cannula 2.0 28 08/17/18 20:53 98 Nasal Cannula 2.0 28 08/17/18 20:53 61 20 94 Nasal Cannula 2.0 28 08/17/18 20:47 Nasal Cannula 2.0 Nasal Cannula 2.0 08/17/18 20:00 98.8 61 17 129/74 (92) 95 08/17/18 16:00 98.3 61 18 145/74 (97) 92 08/17/18 12:00 98.0 66 18 123/66 (85) 92 Intake and Output 08/17/18 08/18/18 18:59 06:59 Intake Total 300 ml Balance 300 ml Intake Oral 300 ml # Voids 3 Laboratory Tests Test 08/18/18 05:48 White Blood Count 10.6 K/UL (4.8-10.8) Red Blood Count 4.81 M/UL (4.20-5.40) Hemoglobin 14.1 G/DL (12.0-16.0) Hematocrit 43.2 % (37.0-47.0) Mean Corpuscular Volume 90 FL (80-99) Mean Corpuscular Hemoglobin 29.3 PG (27.0-31.0) Mean Corpuscular Hemoglobin Concent 32.6 G/DL (32.0-36.0) Red Cell Distribution Width 13.7 % (11.6-14.8) Platelet Count 308 K/UL (150-450) Mean Platelet Volume 7.3 FL (6.5-10.1) Neutrophils (%) (Auto) 64.2 % (45.0-75.0) Lymphocytes (%) (Auto) 29.6 % (20.0-45.0) Monocytes (%) (Auto) 5.6 % (1.0-10.0) Eosinophils (%) (Auto) 0.2 % (0.0-3.0) Basophils (%) (Auto) 0.4 % (0.0-2.0) Sodium Level 139 MMOL/L (136-145) Potassium Level 3.6 MMOL/L (3.5-5.1) Chloride Level 98 MMOL/L (98-107) Carbon Dioxide Level 37 MMOL/L (21-32) H Anion Gap 4 mmol/L (5-15) L Blood Urea Nitrogen 28 mg/dL (7-18) H Creatinine 1.0 MG/DL (0.55-1.30) Estimat Glomerular Filtration Rate mL/min (>60) Glucose Level 91 MG/DL (74-106) Calcium Level 9.7 MG/DL (8.5-10.1) Magnesium Level 2.2 MG/DL (1.8-2.4) Pro-B-Type Natriuretic Peptide 116 pg/mL (0-125) Height (Feet): 5 Height (Inches): 5.00 Weight (Pounds): 128 General Appearance: WD/WN, no apparent distress, alert Cardiovascular: normal rate Respiratory/Chest: normal breath sounds, no respiratory distress Abdominal Exam: normal bowel sounds, non tender, soft Extremities: normal range of motion, non-tender Makenzie Booth NP Aug 18, 2018 10:35
[2018-08-18 12:00] VITALS: BP 115/75
--- NOTE | 2018-08-18 13:01 | General Progress Note ---
Assessment/Plan Problem List: (1) Chest pain ICD Codes: R07.9 - Chest pain, unspecified SNOMED: 15872687 (2) COPD exacerbation ICD Codes: J44.1 - Chronic obstructive pulmonary disease with (acute) exacerbation SNOMED: 969564546 Status: stable Assessment/Plan: GI noted- keep stent po steroids cont resp rx o2 anxiolytics Subjective ROS Limited/Unobtainable: No Constitutional: Reports: malaise, weakness HEENT: Reports: no symptoms Cardiovascular: Reports: no symptoms Respiratory: Reports: no symptoms Gastrointestinal/Abdominal: Reports: no symptoms Genitourinary: Reports: no symptoms Neurologic/Psychiatric: Reports: no symptoms Endocrine: Reports: no symptoms Hematologic/Lymphatic: Reports: no symptoms Allergies: Coded Allergies: SETH INHIBITORS (Verified Allergy, Unknown, 03/04/16) All Systems: reviewed and negative except above Subjective no new complaints. less sob. no chest pain. did not discharge due to dizziness. feels better today Objective Last 24 Hour Vital Signs Date Time Temp Pulse Resp B/P (MAP) Pulse Ox O2 Delivery O2 Flow Rate FiO2 08/18/18 10:49 65 20 98 Nasal Cannula 2.0 28 08/18/18 10:41 72 20 95 Nasal Cannula 2.0 28 08/18/18 09:01 96 137/67 08/18/18 08:06 Room Air Room Air 08/18/18 08:00 98.2 96 20 137/67 (90) 93 08/18/18 07:30 Nasal Cannula 08/18/18 07:30 Nasal Cannula 08/18/18 07:30 97 Nasal Cannula 2.0 08/18/18 04:00 97.6 81 18 146/86 (106) 94 08/18/18 02:23 59 16 98 Nasal Cannula 2.0 28 08/18/18 02:15 79 20 93 Nasal Cannula 2.0 28 08/18/18 00:00 97.8 70 16 125/79 (94) 96 08/17/18 23:18 71 18 96 Nasal Cannula 2.0 28 08/17/18 23:09 63 20 92 Nasal Cannula 2.0 28 08/17/18 21:03 67 20 98 Nasal Cannula 2.0 28 08/17/18 20:53 61 20 94 Nasal Cannula 2.0 28 08/17/18 20:53 98 Nasal Cannula 2.0 28 08/17/18 20:53 61 20 94 Nasal Cannula 2.0 28 08/17/18 20:47 Nasal Cannula 2.0 Nasal Cannula 2.0 08/17/18 20:00 98.8 61 17 129/74 (92) 95 08/17/18 16:00 98.3 61 18 145/74 (97) 92 Intake and Output 08/17/18 08/18/18 18:59 06:59 Intake Total 300 ml Balance 300 ml Intake Oral 300 ml # Voids 3 Laboratory Tests 08/18/18 05:48: White Blood Count 10.6, Red Blood Count 4.81, Hemoglobin 14.1, Hematocrit 43.2, Mean Corpuscular Volume 90, Mean Corpuscular Hemoglobin 29.3, Mean Corpuscular Hemoglobin Concent 32.6, Red Cell Distribution Width 13.7, Platelet Count 308, Mean Platelet Volume 7.3, Neutrophils (%) (Auto) 64.2, Lymphocytes (%) (Auto) 29.6, Monocytes (%) (Auto) 5.6, Eosinophils (%) (Auto) 0.2, Basophils (%) (Auto ) 0.4, Sodium Level 139, Potassium Level 3.6, Chloride Level 98, Carbon Dioxide Level 37H, Anion Gap 4L, Blood Urea Nitrogen 28H, Creatinine 1.0, Estimat Glomerular Filtration Rate , Glucose Level 91, Calcium Level 9.7, Magnesium Level 2.2, Pro-B-Type Natriuretic Peptide 116 Height (Feet): 5 Height (Inches): 5.00 Weight (Pounds): 128 Objective General Appearance: WD/WN, alert, mild distress Neck: supple Cardiovascular: normal rate, regular rhythm Respiratory/Chest: expiratory wheezing Abdomen: normal bowel sounds, non tender, soft, no organomegaly Edema: no edema noted Arm (L), no edema noted Arm (R), no edema noted Leg (L), no edema noted Leg (R), no edema noted Pedal (L), no edema noted Pedal (R), no edema noted Generalized Ej Hassan MD Aug 18, 2018 13:01
[2018-08-18 16:00] VITALS: BP 144/98
[2018-08-18] MEDS ORDERED: Tubing IV Secondary IV ONE (17:37)
[2018-08-18 20:00] VITALS: BP 123/83
--- NOTE | 2018-08-18 22:00 | Progress Note ---
DATE: 08/18/2018 SUBJECTIVE: The patient is still depressed. Has anhedonia, worthlessness, hopelessness, decreased energy. No suicidal or homicidal ideation. MENTAL STATUS EXAMINATION: The patient is alert, oriented times self, place, and situation. Mood is depressed. Affect is constricted, congruent with mood. Thought process is concrete. Thought content, no suicidal or homicidal ideation. Memory is impaired. ASSESSMENT: Major depressive disorder, cognitive impairment. PLAN: We will continue current medication. Provide the patient with reality orientation and supportive therapy. Valery Lundberg M.D. DR: [place] JOB#: [id number] CC:
[2018-08-19] VITALS: BP 122/78
[2018-08-19] MEDS: oxyCODONE HCL/Acetaminophen 5/325mg ORAL PRN ×2 (00:41→07:34)
--- NOTE | 2018-08-19 02:00 | Progress Note ---
DATE: 08/18/2018 SUBJECTIVE: Dizziness has improved. No chest pain. Less short of breath. OBJECTIVE: Blood pressure 137/67, heart rate 65 to 96, respiratory 20, afebrile. LUNGS: Clear. Diminished breath sounds. CARDIOVASCULAR: Irregularly irregular rhythm. Normal S1, S2. ABDOMEN: Soft. EXTREMITIES: Trace edema. IMPRESSION: 1. Chronic obstructive pulmonary disease exacerbation. 2. Biliary stent. 3. Paroxysmal atrial fibrillation. 4. Pleuritic chest pain. 5. Pulmonary hypertension. PLAN: 1. Taper oral steroids. 2. No plan to remove biliary stent. 3. Maintain anticoagulation for cardioembolic prophylaxis. 4. Discharge plan. Moe Leblanc M.D. DR: TIFFANY JOB#: [id number] CC:
[2018-08-19] MEDS: Albuterol/Ipratropium 3ml neb HHN SCH ×4 (03:07→11:17)
[2018-08-19 04:00] VITALS: BP 125/79
[2018-08-19 08:00] VITALS: BP 122/80
[2018-08-19] MEDS: Eliquis 5mg tablet ORAL SCH (08:30)
[2018-08-19] MEDS: dilTIAZem HCl CD 180mg cap ORAL SCH (08:31)
--- NOTE | 2018-08-19 08:49 | General Progress Note ---
Assessment/Plan Problem List: (1) Chest pain ICD Codes: R07.9 - Chest pain, unspecified SNOMED: 74430634 (2) COPD exacerbation ICD Codes: J44.1 - Chronic obstructive pulmonary disease with (acute) exacerbation SNOMED: 470466825 Status: stable Assessment/Plan: GI noted- keep stent po steroids cont resp rx o2 anxiolytics dc planning Subjective Allergies: Coded Allergies: SETH INHIBITORS (Verified Allergy, Unknown, 03/04/16) Subjective no new complaints. less sob. no chest pain. remains on o2. Objective Last 24 Hour Vital Signs Date Time Temp Pulse Resp B/P (MAP) Pulse Ox O2 Delivery O2 Flow Rate FiO2 08/19/18 08:31 80 122/80 08/19/18 08:00 98.2 80 16 122/80 (94) 98 08/19/18 07:58 63 20 98 Nasal Cannula 2.0 28 08/19/18 07:54 96 Nasal Cannula 2.0 28 08/19/18 07:54 64 18 90 Room Air 21 08/19/18 04:00 98.2 75 18 125/79 (94) 93 08/19/18 03:12 59 20 97 Nasal Cannula 2.0 28 08/19/18 03:05 53 20 97 Nasal Cannula 2.0 28 08/19/18 00:00 97.9 73 20 122/78 (93) 96 08/18/18 23:28 65 20 98 Nasal Cannula 2.0 28 08/18/18 23:20 75 20 96 Nasal Cannula 2.0 28 08/18/18 21:00 Nasal Cannula 2.0 Nasal Cannula 2.0 08/18/18 20:00 98.1 99 20 123/83 (96) 93 08/18/18 19:59 93 20 98 Nasal Cannula 2.0 28 08/18/18 19:49 103 20 93 Room Air 21 08/18/18 19:48 93 Room Air 21 08/18/18 16:00 99.4 79 20 144/98 (113) 97 08/18/18 15:28 67 20 98 Nasal Cannula 2.0 28 08/18/18 15:18 79 20 96 Nasal Cannula 2.0 28 08/18/18 13:23 98.2 08/18/18 12:00 98.3 55 19 115/75 (88) 95 08/18/18 10:49 65 20 98 Nasal Cannula 2.0 28 08/18/18 10:41 72 20 95 Nasal Cannula 2.0 28 08/18/18 09:01 96 137/67 Intake and Output 08/18/18 08/19/18 19:00 07:00 Intake Total 1235 ml 540 ml Balance 1235 ml 540 ml Intake Oral 1180 ml 540 ml IV Total 55 ml # Voids 4 3 Height (Feet): 5 Height (Inches): 5.00 Weight (Pounds): 131 Objective General Appearance: WD/WN, alert, mild distress Neck: supple Cardiovascular: normal rate, regular rhythm Respiratory/Chest: expiratory wheezing Abdomen: normal bowel sounds, non tender, soft, no organomegaly Edema: no edema noted Arm (L), no edema noted Arm (R), no edema noted Leg (L), no edema noted Leg (R), no edema noted Pedal (L), no edema noted Pedal (R), no edema noted Generalized Ej Hassan MD Aug 19, 2018 08:49
--- NOTE | 2018-08-19 09:51 | GI Progress Note ---
Assessment/Plan Problems: (1) Abdominal pain ICD Codes: R10.9 - Unspecified abdominal pain SNOMED: 74301632 (2) Common bile duct obstruction secondary to biliary stent ICD Codes: K83.1 - Obstruction of bile duct SNOMED: 95800985 Status: stable Status Narrative Discussed with Dr. Pedroza Assessment/Plan symptomatic treatment okay for DC per GI standpoint KUB d/w with radiologist, confirmed presence of metallic biliary stent okay for DC per GI standpoint, patient would benefit from EGD/colonoscopy as outpatient to evaluate her chronic abdominal pain. The patient was seen and examined at bedside and all new and available data was reviewed in the patients chart. I agree with the above findings, impression and plan. (Patient seen earlier today. Signature stamp does not reflect patient encounter time.). - Shawn Pedroza MD Subjective Gastrointestinal/Abdominal: Reports: no symptoms Subjective Abdominal pain is improved Objective Last 24 Hour Vital Signs Date Time Temp Pulse Resp B/P (MAP) Pulse Ox O2 Delivery O2 Flow Rate FiO2 08/19/18 09:09 Nasal Cannula 2.0 Nasal Cannula 2.0 08/19/18 08:31 80 122/80 08/19/18 08:00 98.2 80 16 122/80 (94) 98 08/19/18 07:58 63 20 98 Nasal Cannula 2.0 28 08/19/18 07:54 96 Nasal Cannula 2.0 28 08/19/18 07:54 64 18 90 Room Air 21 08/19/18 04:00 98.2 75 18 125/79 (94) 93 08/19/18 03:12 59 20 97 Nasal Cannula 2.0 28 08/19/18 03:05 53 20 97 Nasal Cannula 2.0 28 08/19/18 00:00 97.9 73 20 122/78 (93) 96 08/18/18 23:28 65 20 98 Nasal Cannula 2.0 28 08/18/18 23:20 75 20 96 Nasal Cannula 2.0 28 08/18/18 21:00 Nasal Cannula 2.0 Nasal Cannula 2.0 08/18/18 20:00 98.1 99 20 123/83 (96) 93 08/18/18 19:59 93 20 98 Nasal Cannula 2.0 28 08/18/18 19:49 103 20 93 Room Air 21 6/11/19 19:48 93 Room Air 21 08/18/18 16:00 99.4 79 20 144/98 (113) 97 08/18/18 15:28 67 20 98 Nasal Cannula 2.0 28 08/18/18 15:18 79 20 96 Nasal Cannula 2.0 28 08/18/18 13:23 98.2 08/18/18 12:00 98.3 55 19 115/75 (88) 95 08/18/18 10:49 65 20 98 Nasal Cannula 2.0 28 08/18/18 10:41 72 20 95 Nasal Cannula 2.0 28 Intake and Output 08/18/18 08/19/18 19:00 07:00 Intake Total 1235 ml 540 ml Balance 1235 ml 540 ml Intake Oral 1180 ml 540 ml IV Total 55 ml # Voids 4 3 Height (Feet): 5 Height (Inches): 5.00 Weight (Pounds): 131 General Appearance: WD/WN, no apparent distress, alert Cardiovascular: normal rate Respiratory/Chest: normal breath sounds, no respiratory distress Abdominal Exam: normal bowel sounds, non tender, soft Extremities: normal range of motion, non-tender Makenzie Booth [facility] [employer] Aug 19, 2018 09:51
[2018-08-19 12:00] VITALS: BP 117/86
[2018-08-19] MEDS: Acetaminophen 500mg (ES) tab ORAL PRN (12:42)
--- NOTE | 2018-08-20 01:31 | Progress Note ---
DATE: 08/19/2018 SUBJECTIVE: The patient presents with depressed mood, worthlessness, decreased energy, and poor memory. She denied any suicidal or homicidal ideation. She will be discharged home today. MENTAL STATUS EXAMINATION: The patient is alert and oriented times to self, place, and situation. Mood is depressed. Affect is constricted. Thought process is concrete. Thought content, no suicidal or homicidal ideation. ASSESSMENT: 1. Major depressive disorder. 2. Anxiety disorder. PLAN: We will continue current medication. Provide the patient with reality orientation and supportive therapy. Valery Lundberg M.D. DR: TOMASA JOB#: [id number] CC:
--- NOTE | 2018-08-20 04:45 | Progress Note ---
DATE: 08/19/2018 CARDIOLOGY PROGRESS NOTE SUBJECTIVE: The patient has controlled abdominal pain. A metallic biliary stent was and does not need to be removed per gastrointestinal evaluation. Routine screening and colonoscopy is recommended as an outpatient. OBJECTIVE: VITAL SIGNS: Blood pressure 122/80, heart rate 80, and respirations 16. Afebrile. LUNGS: Coarse breath sounds. HEART: Irregularly irregular rhythm. Normal S1, S2. A 1/6 systolic apical murmur. ABDOMEN: Soft. EXTREMITIES: Trace edema. LABORATORY DATA: Reviewed from 08/18/2018. IMPRESSION: 1. Chronic obstructive pulmonary disease. 2. Hypoxia. 3. Paroxysmal atrial fibrillation. 4. Hepatobiliary disease with biliary stent. 5. Mild protein-calorie malnutrition. 6. Degenerative disk disease. 7. Chronic hypoxia PLAN: 1. Outpatient followup. 2. Continue cardioembolic prophylaxis with apixaban. 3. Respiratory hygiene. 4. Home oxygen. 5. Nebulizer for bronchodilators. 6. Cardiovascular drugs reviewed and discussed outpatient follow up with the patient in detail. Moe Leblanc M.D. DR: ROGER JOB#: [id number] CC:
--- NOTE | 2018-08-20 11:15 | Discharge Summary ---
Discharge Summary Discharge Summary _ Addendum to prior DC summary: Patient was planned discharged on 08/17/2018, however, discharge was canceled as patient complained of dizziness. KUB was done to evaluate status of stent. Per GI, no need to remove metallic biliary stent or now. She was recommended would benefit from EGD/colonoscopy as outpatient. She was eventually discharged home with home health. DISCHARGE DIAGNOSES: 1. COPD exacerbation. 2. Hypertension. 3. Chronic back pain. 4. History of biliary stent. Yoselin Harvey NP Aug 20, 2018 11:15
== END 2018-08-19 14:10 | disposition home or self-care (01) | DRG 190 ==
LOC: EMR 08-12 00:11 → 3E 08-12 01:33 → EDBEDREQ 08-12 02:06 → 3E 08-12 03:29
DX: J44.1 Chronic obstructive pulmonary disease with (acute) exacerbation (principal); I50.31 Acute diastolic (congestive) heart failure; E44.1 Mild protein-calorie malnutrition; I11.0 Hypertensive heart disease with heart failure; F41.9 Anxiety disorder, unspecified; F32.9 Major depressive disorder, single episode, unspecified; I48.0 Paroxysmal atrial fibrillation; Z88.8 Allergy status to other drugs, medicaments and biological substances; G89.29 Other chronic pain; M54.9 Dorsalgia, unspecified; R10.9 Unspecified abdominal pain; Z96.89 Presence of other specified functional implants; K83.9 Disease of biliary tract, unspecified; Z87.891 Personal history of nicotine dependence; R07.81 Pleurodynia; T14.8XXD Other injury of unspecified body region, subsequent encounter; V89.2XXD Person injured in unspecified motor-vehicle accident, traffic, subsequent encounter; R09.02 Hypoxemia; M19.91 Primary osteoarthritis, unspecified site; I27.20 Pulmonary hypertension, unspecified
CPT/HCPCS: 36415; 36600; 71045; 72040; 73521; 74018; 80048; 80053; 80307; 81003; 82550; 82553; 82803; 83735; 83880; 84484; 85025; 93005; 94640; 94660; 94664; 96374; 96375; 99285; J7620

== ENCOUNTER 2018-11-29 18:59 | Inpatient (IN) | payer MEDICARE, MEDICAID ==
[~2018-11-29] VITALS: Ht 154.9 cm; Wt 62.6 kg
[~2018-11-29 18:59] MED LIST changes: +BREO ELLIPTA 11 EACH IH; +CHLORTHALIDONE25 MG ORAL; +CLOTRIMAZOLE15 GM TOPIC; +DICLOFENAC SOD100 GM TP; +PREDNISONE2.5 MG ORAL; +TEMAZEPAM15 MG ORAL; +VITAMIN D250000 UNI1 ORAL
[2018-11-29] MEDS ORDERED: NORVASC10 MG ORAL (19:08)
[2018-11-29 19:13] VITALS: BP 142/79
--- NOTE | 2018-11-29 19:52 | Emergency Room Report ---
History of Present Illness General Chief Complaint: Abdominal Pain Source: Patient Present Illness HPI Patient is a 78-year-old female who reports having increased epigastric pain as well as increased suprapubic pain. She states has had multiple episodes of vomiting and diarrhea. She had prior history of cholecystectomy. She reports having some increased headache as well as some palpitations. She states this started since last night. Allergies: Coded Allergies: SETH INHIBITORS (Verified Allergy, Unknown, 03/04/16) Patient History Past Medical History: see triage record Reviewed Nursing Documentation: PMH: Agreed; PSxH: Agreed Nursing Documentation-PMH Past Medical History: No History, Except For Hx Cardiac Problems: Yes Hx Hypertension: Yes Hx Asthma: Yes Hx COPD: Yes Hx Cancer: No Hx Gastrointestinal Problems: Yes Hx Neurological Problems: No Review of Systems All Other Systems: negative except mentioned in HPI Physical Exam Vital Signs Date Time Temp Pulse Resp B/P (MAP) Pulse Ox O2 Delivery O2 Flow Rate FiO2 11/29/18 19:03 98.6 66 16 141/78 (99) 95 Room Air Sp02 EP Interpretation: reviewed, normal General Appearance: normal inspection, well appearing, no apparent distress, alert, GCS 15, non-toxic Head: atraumatic ENT: normal ENT inspection, hearing grossly normal, normal voice Neck: normal inspection, full range of motion, supple, no bony tend Respiratory: normal inspection, lungs clear, normal breath sounds, no respiratory distress, no retraction, no wheezing Cardiovascular #1: regular rate, rhythm, no edema Gastrointestinal: normal inspection, normal bowel sounds, non tender, soft, no guarding, no hernia Genitourinary: no CVA tenderness Musculoskeletal: normal inspection, back normal, normal range of motion Neurologic: normal inspection, alert, oriented x3, responsive, dry plasterer helper III-XII nml as tested, motor strength/tone normal, DTRs symmetric, speech normal Psychiatric: normal inspection, judgement/insight normal, mood/affect normal Medical Decision Making Diagnostic Impression: Primary Impression: Abdominal pain Additional Impression: Common bile duct obstruction secondary to biliary stent ER Course Patient presented for abdominal pain. Differential diagnoses included ischemic bowel, appendicitis, perforated viscus, abdominal aortic aneurysm, inferior myocardial infarction, viral gastroenteritis among others.Because patient's complexity imaging studies, and laboratory testing ordered. Electrolytes showed mild hypokalemia. Lipase was normal White blood count was normal. CT of the abdomen pelvis showed:Severe biliary dilation as well as biliary stent and multiple fluid-filled loops of small bowel see radiology report for full details. Patient was given IV fluids as well as IV acid blockers. Dr. Ej Hassan was contacted for inpatient management due to covering physician for primary care physician Labs Test 11/29/18 19:50 11/29/18 20:30 White Blood Count 6.7 K/UL (4.8-10.8) Red Blood Count 4.97 M/UL (4.20-5.40) Hemoglobin 14.5 G/DL (12.0-16.0) Hematocrit 45.1 % (37.0-47.0) Mean Corpuscular Volume 91 FL (80-99) Mean Corpuscular Hemoglobin 29.3 PG (27.0-31.0) Mean Corpuscular Hemoglobin Concent 32.2 G/DL (32.0-36.0) Red Cell Distribution Width 14.9 % (11.6-14.8) Platelet Count 214 K/UL (150-450) Mean Platelet Volume 7.2 FL (6.5-10.1) Neutrophils (%) (Auto) 71.1 % (45.0-75.0) Lymphocytes (%) (Auto) 17.9 % (20.0-45.0) Monocytes (%) (Auto) 10.6 % (1.0-10.0) Eosinophils (%) (Auto) 0.1 % (0.0-3.0) Basophils (%) (Auto) 0.3 % (0.0-2.0) Prothrombin Time 9.7 SEC (9.30-11.50) Prothromb Time International Ratio 0.9 (0.9-1.1) Activated Partial Thromboplast Time 28 SEC (23-33) Sodium Level 142 MMOL/L (136-145) Potassium Level 3.1 MMOL/L (3.5-5.1) Chloride Level 105 MMOL/L (98-107) Carbon Dioxide Level 27 MMOL/L (21-32) Anion Gap 10 mmol/L (5-15) Blood Urea Nitrogen 16 mg/dL (7-18) Creatinine 1.0 MG/DL (0.55-1.30) Estimat Glomerular Filtration Rate mL/min (>60) Glucose Level 98 MG/DL (74-106) Calcium Level 9.4 MG/DL (8.5-10.1) Total Bilirubin 0.6 MG/DL (0.2-1.0) Aspartate Amino Transf (AST/SGOT) 21 U/L (15-37) Alanine Aminotransferase (ALT/SGPT) 30 U/L (12-78) Alkaline Phosphatase 162 U/L (46-116) Troponin I 0.000 ng/mL (0.000-0.056) Total Protein 7.5 G/DL (6.4-8.2) Albumin 3.4 G/DL (3.4-5.0) Globulin 4.1 g/dL Albumin/Globulin Ratio 0.8 (1.0-2.7) Lipase 124 U/L (73-393) Urine Color Yellow Urine Appearance Clear Urine pH 6 (4.5-8.0) Urine Specific St[place]ard 1.020 (1.005-1.035) Urine Protein 3+ (NEGATIVE) Urine Glucose (UA) Negative (NEGATIVE) Urine Ketones 1+ (NEGATIVE) Urine Blood 1+ (NEGATIVE) Urine Nitrite Negative (NEGATIVE) Urine Bilirubin Negative (NEGATIVE) Urine Urobilinogen Normal MG/DL (0.0-1.0) Urine Leukocyte Esterase 1+ (NEGATIVE) Urine RBC 0-2 /HPF (0 - 2) Urine WBC 2-4 /HPF (0 - 2) Urine Squamous Epithelial Cells Few /LPF (NONE/OCC) Urine Bacteria Few /HPF (NONE) Last Vital Signs Date Time Temp Pulse Resp B/P (MAP) Pulse Ox O2 Delivery O2 Flow Rate FiO2 11/29/18 19:13 64 18 Room Air 11/29/18 19:13 98.6 142/79 95 Status: improved Disposition: ADMITTED INPATIENT Condition: Serious J Carlos Mathew MD Nov 29, 2018 19:52
[2018-11-29] MEDS ORDERED: Mylanta II UD 30ml ORAL ONE (20:00)
[2018-11-29] MEDS ORDERED: Omnipaque-300 100ml vial INJ PRN (20:00)
[2018-11-29] MEDS ORDERED: Dicyclomine HCl 10mg/5ml oral soln ORAL ONE (20:00)
[2018-11-29] MEDS ORDERED: Lidocaine 2% Visc 15ml soln ORAL ONE (20:00)
[2018-11-29 20:17] LABS: BASOPHILS % (AUTO) 0.3 % (0.0-2.0); EOSINOPHILS % (AUTO) 0.1 % (0.0-3.0); HEMATOCRIT 45.1 % (37.0-47.0); HEMOGLOBIN 14.5 G/DL (12.0-16.0); LYMPHOCYTES % (AUTO) 17.9 % (20.0-45.0); MEAN CORPUSCULAR VOLUME 91 FL (80-99); MONOCYTES % (AUTO) 10.6 % (1.0-10.0); NEUTROPHILS % (AUTO) 71.1 % (45.0-75.0); PLATELET COUNT 214 K/UL (150-450); RED BLOOD COUNT 4.97 M/UL (4.20-5.40); RED CELL DISTRIBUTION WIDTH 14.9 % (11.6-14.8); WHITE BLOOD COUNT 6.7 K/UL (4.8-10.8)
[2018-11-29 20:22] LABS: ANION GAP 10 mmol/L (5-15); BLOOD UREA NITROGEN 16 mg/dL (7-18); CALCIUM 9.4 MG/DL (8.5-10.1); CARBON DIOXIDE 27 MMOL/L (21-32); CHLORIDE 105 MMOL/L (98-107); POTASSIUM 3.1 MMOL/L (3.5-5.1); SODIUM 142 MMOL/L (136-145)
[2018-11-29 20:26] LABS: ALANINE AMINOTRANSFERASE 30 U/L (12-78); ALBUMIN 3.4 G/DL (3.4-5.0); ALBUMIN/GLOBULIN RATIO 0.8 (1.0-2.7); ALKALINE PHOSPHATASE 162 U/L (46-116); ASPARTATE AMINO TRANSFERASE 21 U/L (15-37); BILIRUBIN,TOTAL 0.6 MG/DL (0.2-1.0)
[2018-11-29 20:35] LABS: INR 0.9 (0.9-1.1)
[2018-11-29 20:53] LABS: APPEARANCE,URINE CLEAR; BILIRUBIN, URINE NEGATIVE (NEGATIVE); GLUCOSE, URINE (UA) NEGATIVE (NEGATIVE); KETONES,URINE 1+ (NEGATIVE); LEUKOCYTE ESTERASE ,URINE 1+ (NEGATIVE); NITRITE,URINE NEGATIVE (NEGATIVE); PH,URINE 6 (4.5-8.0); PROTEIN,URINE 3+ (NEGATIVE); UROBILINOGEN,URINE NORMAL MG/DL (0.0-1.0)
[2018-11-29 20:55] LABS: COLOR,URINE YELLOW
[2018-11-29 21:05] VITALS: BP 133/70
--- NOTE | 2018-11-29 21:44 | Diagnostic Imaging Report ---
Indication: Abdominal pain Technique: Continuous helical transaxial imaging of the abdomen and pelvis was obtained from the lung bases to the pubic symphysis during intravenous contrast administration. Coronal 2-D reformats were also obtained. Study obtained in a Siemens sensation [address] Automatic Exposure Control was utilized. Total Dose length Product (DLP): 614.[address] Dose Index Volume (CTDIvol): 12.33 mGy Comparison: 08/14/2011 CT abdomen pelvis Findings: There is scarring at the left lung base with pleural thickening and peripheral reticular densities. There is deformity of the chest wall with absence of several of the lower posterior ribs. This was present in 2012 as well and is unchanged. The aorta is moderately ectatic and calcified. There is hardware present within the lower thoracic upper lumbar spine with a posterior pedicle screws and fusion rods. Resultant streak artifact noted. This there is a CBD stent present unchanged in appearance or position compared to 2012. There is persistent moderate to severe biliary ductal dilatation within the liver and within the common bile duct despite presence of the stent. Similar appearance in 2012. The main portal vein enhances. Both kidneys enhance normally but the evaluated during arterial phase which is not optimal and. There are multiple tiny hypodensities too small to characterize. There is a left renal cyst present. Kidneys are obscured by streak artifact to some extent. There is no ascites. The gallbladder is absent. Aorta is moderately calcified. The colon is diffusely underdistended but there is prominence of the wall suggesting possibility of colitis. In addition there is some enhancement and dilatation of fluid-filled loops of small bowel. There is liquefied stool in the colon. Findings suggest enterocolitis. Correlate clinically. There is no abscess. There is a uterine mass on the right side again noted enhancing and with associated calcification consistent with a fibroid. Gross dimensions of 4.8 x 4.1 cm. Small inguinal lymph nodes are present nonspecific. Small bilateral inguinal hernias containing fat are noted. IMPRESSION: Liquefied stool, suggestion of thickening of the wall the colon and multiple fluid-filled loops of small bowel. Findings suspicious for enteritis, possibly enterocolitis. Correlate clinically. Persistent moderate intrahepatic and extrahepatic biliary ductal dilatation with the distal CBD stent noted. Findings are unchanged from 2012. Correlate clinically. Atherosclerotic vascular disease. Hiatal hernia Lower thoracic/upper lumbar hardware. Postsurgical changes left lung base. Uterine fibroid Small bilateral inguinal hernias containing fat. Left renal cysts. Other hypodensities too small to characterize in both kidneys. [facility] has communicated the preliminary results to the Emergency Department. Their findings are largely concordant with this report. The CT scanner at [facility] is accredited by the [employer] and the scans are performed using dose optimization techniques as appropriate to a performed exam including Automatic Exposure control.
[2018-11-29 22:00] VITALS: BP 128/72
[2018-11-30] VITALS: BP 150/80
[2018-11-30] MEDS: NS w/KCl 20mEq 1000ml 1,000 ML IV SCH ×3 (00:54→16:40)
[2018-11-30] MEDS: Ciprofloxacin 500mg tab ORAL SCH ×3 (01:57→20:47)
[2018-11-30 04:00] VITALS: BP 139/77
[2018-11-30] MEDS ORDERED: Piperacillin/Tazobactam 3.375 GM in NS 110 ML IVPB SCH (06:00)
[2018-11-30 07:08] LABS: BASOPHILS % (AUTO) 0.3 % (0.0-2.0); EOSINOPHILS % (AUTO) 0.3 % (0.0-3.0); HEMATOCRIT 42.1 % (37.0-47.0); HEMOGLOBIN 13.6 G/DL (12.0-16.0); LYMPHOCYTES % (AUTO) 18.1 % (20.0-45.0); MEAN CORPUSCULAR VOLUME 92 FL (80-99); MONOCYTES % (AUTO) 13.7 % (1.0-10.0); NEUTROPHILS % (AUTO) 67.7 % (45.0-75.0); PLATELET COUNT 187 K/UL (150-450); RED CELL DISTRIBUTION WIDTH 14.9 % (11.6-14.8); WHITE BLOOD COUNT 5.5 K/UL (4.8-10.8)
[2018-11-30 07:34] LABS: ALANINE AMINOTRANSFERASE 33 U/L (12-78); ALBUMIN 3.1 G/DL (3.4-5.0); ALKALINE PHOSPHATASE 138 U/L (46-116); ANION GAP 10 mmol/L (5-15); ASPARTATE AMINO TRANSFERASE 20 U/L (15-37); BILIRUBIN,DIRECT 0.1 MG/DL (0.0-0.3); BILIRUBIN,TOTAL 0.5 MG/DL (0.2-1.0); BLOOD UREA NITROGEN 14 mg/dL (7-18); CARBON DIOXIDE 26 MMOL/L (21-32); CHLORIDE 107 MMOL/L (98-107); POTASSIUM 3.7 MMOL/L (3.5-5.1); SODIUM 142 MMOL/L (136-145)
[2018-11-30 07:43] LABS: CALCIUM 9.1 MG/DL (8.5-10.1)
[2018-11-30 08:00] VITALS: BP 132/74
[2018-11-30] MEDS: Eliquis 5mg tablet ORAL SCH ×3 (09:18→17:53)
[2018-11-30] MEDS: Morphine Sulfate 2mg/ml Inj(IV/IM USE ONLY) IVP PRN ×3 (09:19→23:01)
[2018-11-30 12:00] VITALS: BP 140/80
[2018-11-30] MEDS ORDERED: OMEPRAZOLE20 M2 ORAL (15:57)
[2018-11-30] MEDS ORDERED: TIZANIDINE HCL4 MG ORAL (15:57)
[2018-11-30] MEDS ORDERED: VOLTAREN100 G1 TP (15:57)
[2018-11-30] MEDS ORDERED: PREDNISONE2.5 MG ORAL (15:57)
[2018-11-30] MEDS ORDERED: OXYCODONE-ACET1 EAC3 ORAL (15:57)
[2018-11-30] MEDS ORDERED: ELIQUIS5 MG PO (15:57)
[2018-11-30] MEDS ORDERED: VITAMIN D250000 UNI1 ORAL (15:57)
[2018-11-30 16:00] VITALS: BP 135/78
[2018-11-30 20:00] VITALS: BP 150/87
[2018-12-01] VITALS: BP 151/72
[2018-12-01 04:00] VITALS: BP 153/84
--- NOTE | 2018-12-01 04:15 | Consultation ---
DATE OF CONSULTATION: 11/29/2018 CARDIOLOGY CONSULTATION CONSULTING PHYSICIAN: Moe Leblanc M.D. REQUESTING PHYSICIAN: Ej Hassan M.D. REASON FOR CONSULTATION: Management of anticoagulation in the setting of atrial fibrillation and acute hepatobiliary disease. HISTORY: This is a 78-year-old female, who presented to the emergency room with increasing epigastric and suprapubic pain today. She has had vomiting and diarrhea. She has a known history of hepatobiliary disease and does have a biliary stent. She was evaluated earlier this year by the biliary service here and recommendations were to maintain the same in place. The patient has not had any fever or chills. PAST MEDICAL HISTORY: Hypertension, COPD, paroxysmal atrial fibrillation, degenerative disk disease, uterine fibroids, chronic hepatobiliary disease, vitamin D deficiency, essential tremor, peripheral neuropathy, diastolic dysfunction with history of congestive heart failure. MEDICATIONS: List of medications prior to admission Eliquis 5 b.i.d., Primidone 50 b.i.d., pantoprazole 40 daily, gabapentin 100 t.i.d., amlodipine 10 mg daily, furosemide 20 mg daily, prednisone 5 mg daily, Spiriva 1 inhalation daily, Ventolin inhaler as needed, and Zanaflex 4 mg at bedtime. ALLERGIES: SETH inhibitors resulting in a cough. SOCIAL HISTORY: A 50+ pack year smoker, recently quit. No alcohol or substance abuse. REVIEW OF SYSTEMS: Outpatient echocardiogram in the last 6 months with normal ejection fraction, mild degenerative valve disease, and no pulmonary hypertension. There is no history of diabetes or thyroid disorder. No history of seizure or stroke. She does have a history of COPD. She has been on steroids intermittently for her COPD exacerbation. She is yet to receive an influenza vaccination this season. PHYSICAL EXAMINATION: VITAL SIGNS: Blood pressure 144/78, pulse 66, respirations 16, and afebrile. HEENT: Conjunctivae are pink. Oropharynx clear. NECK: Supple. Jugular venous pressure normal. LUNGS: Clear. CARDIAC: Regular. Normal S1, S2 with no murmur. ABDOMEN: Soft. No focal tenderness, guarding, or rebound. Mild diffuse tenderness noted to deep palpation. EXTREMITIES: No edema. IMPRESSION: 1. Abdominal pain, etiology unclear. 2. Chronic hepatobiliary disease with biliary stent due to common bile duct obstruction. 3. Paroxysmal atrial fibrillation. 4. Eliquis-associated coagulopathy. 5. Hypertensive heart disease. 6. COPD. PLAN: 1. Labs and imaging studies have been reviewed. 2. Empiric antibiotics will be considered. 3. Hydration. 4. Hold anticoagulation. 5. Pain control. 6. GI consultation. 7. Maintain baseline cardiovascular regimen with p.r.n. clonidine for blood pressure spikes. Moe Leblanc M.D. DR: ROGER JOB#: [id number] CC:
[2018-12-01] MEDS: NS w/KCl 20mEq 1000ml 1,000 ML IV SCH ×2 (06:28→16:42)
[2018-12-01 08:00] VITALS: BP 150/87
[2018-12-01] MEDS: Eliquis 5mg tablet ORAL SCH (08:21)
[2018-12-01] MEDS: Ciprofloxacin 500mg tab ORAL SCH ×2 (08:21→21:32)
[2018-12-01] MEDS: Morphine Sulfate 2mg/ml Inj(IV/IM USE ONLY) IVP PRN (09:30)
[2018-12-01 11:56] VITALS: BP 159/99
[2018-12-01] MEDS: oxyCODONE HCL/Acetaminophen 5/325mg ORAL PRN ×2 (13:46→21:34)
[2018-12-01 16:00] VITALS: BP 148/97
--- NOTE | 2018-12-01 19:06 | General Progress Note ---
Assessment/Plan Problem List: (1) Colitis ICD Codes: K52.9 - Noninfective gastroenteritis and colitis, unspecified SNOMED: 45207292 (2) Gastroenteritis ICD Codes: K52.9 - Noninfective gastroenteritis and colitis, unspecified SNOMED: 01825375 (3) Common bile duct dilation ICD Codes: K83.8 - Other specified diseases of biliary tract SNOMED: 095780128 (4) Chest pain ICD Codes: R07.9 - Chest pain, unspecified SNOMED: 12427881 (5) Abdominal pain ICD Codes: R10.9 - Unspecified abdominal pain SNOMED: 71009086 (6) Common bile duct obstruction secondary to biliary stent ICD Codes: K83.1 - Obstruction of bile duct SNOMED: 18788465 Assessment/Plan: cont current rx bacterial stool cultures pending GI eval pending PO pain rx ivf antiemetics Subjective ROS Limited/Unobtainable: No Constitutional: Reports: malaise, weakness HEENT: Reports: no symptoms Cardiovascular: Reports: no symptoms Gastrointestinal/Abdominal: Reports: abdominal pain, diarrhea Genitourinary: Reports: no symptoms Neurologic/Psychiatric: Reports: no symptoms Endocrine: Reports: no symptoms Hematologic/Lymphatic: Reports: no symptoms Allergies: Coded Allergies: SETH INHIBITORS (Verified Allergy, Unknown, 03/04/16) All Systems: reviewed and negative except above Subjective still with diarrhea and abd pain. cdiff. +ill contacts few days before admit. LFTs normal. ?shelby dil on ct Objective Last 24 Hour Vital Signs Date Time Temp Pulse Resp B/P (MAP) Pulse Ox O2 Delivery O2 Flow Rate FiO2 12/01/18 16:00 98.4 58 17 148/97 (114) 97 12/01/18 11:56 98.6 60 17 159/99 (119) 99 12/01/18 09:00 Room Air 12/01/18 08:00 98.5 60 18 150/87 (108) 95 12/01/18 04:00 98.1 58 20 153/84 (107) 93 12/01/18 00:00 99.2 60 19 151/72 (98) 94 11/30/18 21:00 Room Air 11/30/18 20:00 97.7 63 17 150/87 (108) 97 Intake and Output 11/30/18 12/01/18 18:59 06:59 Intake Total 440 ml 200 ml Output Total 600 ml Balance 440 ml -400 ml Intake Oral 440 ml 200 ml Output Urine Total 400 ml Stool Total 200 ml # Voids 3 # Bowel Movements 1 Height (Feet): 5 Height (Inches): 1.00 Weight (Pounds): 140 General Appearance: WD/WN, alert Neck: supple Cardiovascular: normal rate Respiratory/Chest: chest wall non-tender, lungs clear, normal breath sounds Abdomen: normal bowel sounds, non tender, soft, no organomegaly Pelvis: normal external exam Edema: no edema noted Arm (L), no edema noted Arm (R), no edema noted Leg (L), no edema noted Leg (R), no edema noted Pedal (L), no edema noted Pedal (R), no edema noted Generalized Ej Hassan MD Dec 01, 2018 19:06
[2018-12-01] MEDS: Albuterol ud Inhalation HHN PRN (19:25)
[2018-12-01 20:00] VITALS: BP 166/82
--- NOTE | 2018-12-01 20:30 | History and Physical Report ---
DATE OF ADMISSION: 11/29/2018 CHIEF COMPLAINT: Abdominal pain and diarrhea. HISTORY OF PRESENT ILLNESS: The patient is a 78-year-old female well known to me. She has a history of COPD, hypertension, biliary duct obstruction, paroxysmal atrial ablation, fibromyalgia, and congestive heart failure. She presented with complaints of two to three days of abdominal pain and diarrhea. According to the patient, she was well until several days prior to admission when she began to develop worsening abdominal pain and diarrhea. She does admit to ill contacts with some children in her family. On evaluation in the emergency room, she had a CAT scan that showed colitis. In light of her abdominal pain and her CT scan findings, she is now admitted for further evaluation and care. PAST MEDICAL HISTORY: As above. PAST SURGICAL HISTORY: Includes a biliary stent. CURRENT MEDICATIONS: Reconciled and reviewed. ALLERGIES: Include SETH inhibitors. FAMILY HISTORY: Noncontributory. SOCIAL HISTORY: There is no known history of tobacco, alcohol, or drugs. The patient has a 60-pack year history of smoking. REVIEW OF SYSTEMS: GENERAL: No fevers or chills. HEENT: No headaches or visual changes. CARDIOPULMONARY: No chest pain or shortness of breath. GASTROINTESTINAL: Positive nausea and vomiting. Positive diarrhea. GENITOURINARY: No urgency or frequency. MUSCULOSKELETAL: No joint pain or swelling. NEUROLOGIC: No evidence of seizures. PHYSICAL EXAMINATION: VITAL SIGNS: Temperature 98.4, pulse 58, respirations 17, and blood pressure 140/97. GENERAL: The patient is a well-developed female, in no apparent distress. HEART: Regular rate and rhythm. LUNGS: Clear. ABDOMEN: Soft, moderately tender throughout. There is no rebound or guarding. EXTREMITIES: No clubbing, cyanosis, or edema. LABORATORY DATA: White count 5, hemoglobin 13, hematocrit 42, and platelets 187,000. Sodium 142, potassium 3.1. LFTs were unremarkable. UA was clear. ASSESSMENT: This is a pleasant female with a history of hypertension, chronic obstructive pulmonary disease, paroxysmal atrial fibrillation, and history of biliary stent, admitted with complaints of abdominal pain possibly secondary to colitis. She also has biliary dilatation noted on her CAT scan. PLAN: 1. Check stool for C. diff. Check stool cultures. 2. IV hydration. 3. GI consultation will be obtained. 4. Cardiology followup regarding the patient's antihypertensive regimen. 5. Plan of care will be determined after review of pending tests and discussion with consulting physicians. Ej Hassan M.D. DR: SALTY JOB#: [id number] CC:
[2018-12-02] VITALS: BP 163/84
--- NOTE | 2018-12-02 | Progress Note ---
DATE: 12/01/2018 CARDIOLOGY PROGRESS NOTE SUBJECTIVE: The patient still has diarrhea and abdominal pain. No shortness of breath. No fevers. T-max 99.2. PHYSICAL EXAMINATION: VITAL SIGNS: Blood pressure 148/97, heart rate 58, respiratory rate 17, and afebrile. LUNGS: Clear. CARDIAC: Regular. ABDOMEN: Soft. Mildly tender in the lower quadrants. EXTREMITIES: No edema. IMPRESSION: 1. Abdominal pain. 2. Diarrhea. 3. Biliary stent. 4. COPD. 5. Hypertensive heart disease. 6. Paroxysmal atrial fibrillation. PLAN: 1. Empiric antimicrobials. 2. Follow up stool studies. 3. GI evaluation. 4. Maintenance hydration. 5. Hold anticoagulation. Moe Leblanc M.D. DR: Valente JOB#: [id number] CC:
--- NOTE | 2018-12-02 00:45 | Progress Note ---
DATE: 11/30/2018 CARDIOLOGY PROGRESS NOTE Late entry for 11/30/2018 SUBJECTIVE: The patient is still having loose stools and complaining of abdominal pain. No nausea or vomiting. No fevers or chills. PHYSICAL EXAMINATION: VITAL SIGNS: Blood pressure 140/80, pulse 73, respirations 18, and room air oxygen saturation 97%. LUNGS: Diminished breath sounds. HEART: Irregularly irregular rhythm. Normal S1 and S2. ABDOMEN: Soft. Mild focal tenderness. EXTREMITIES: No edema. LABORATORY DATA: White count 5.5 and hemoglobin 13.6. Alkaline phosphatase 138. Liver function normal. Chemistry panel normal. Albumin 3.1. IMPRESSION: 1. Abdominal pain. 2. Biliary stent. 3. Diarrhea. 4. Mild protein-calorie malnutrition. 5. Paroxysmal atrial fibrillation. 6. COPD. 7. Hypertensive heart disease. 8. Hypokalemia, corrected. PLAN: Empiric antimicrobials. Await cultures and stool studies. Hepatobiliary service to evaluate holding anticoagulation in view of possible GI intervention. Cautious use of antidiarrheals. Replace electrolytes as needed. Moe Leblanc M.D. DR: JOSE LUIS JOB#: [id number] CC:
[2018-12-02] MEDS: NS w/KCl 20mEq 1000ml 1,000 ML IV SCH ×3 (03:07→17:16)
[2018-12-02] MEDS: oxyCODONE HCL/Acetaminophen 5/325mg ORAL PRN ×4 (03:08→23:13)
[2018-12-02 04:00] VITALS: BP 147/83
[2018-12-02 07:17] LABS: ALANINE AMINOTRANSFERASE 22 U/L (12-78); ALBUMIN 2.7 G/DL (3.4-5.0); ALBUMIN/GLOBULIN RATIO 0.8 (1.0-2.7); ALKALINE PHOSPHATASE 101 U/L (46-116); ANION GAP 7 mmol/L (5-15); ASPARTATE AMINO TRANSFERASE 19 U/L (15-37); BILIRUBIN,TOTAL 0.4 MG/DL (0.2-1.0); BLOOD UREA NITROGEN 7 mg/dL (7-18); CALCIUM 8.6 MG/DL (8.5-10.1); CARBON DIOXIDE 27 MMOL/L (21-32); CHLORIDE 111 MMOL/L (98-107); CREATININE 0.9 MG/DL (0.55-1.30); POTASSIUM 3.8 MMOL/L (3.5-5.1); SODIUM 145 MMOL/L (136-145)
[2018-12-02 08:00] VITALS: BP 134/75
[2018-12-02] MEDS: Eliquis 5mg tablet ORAL SCH ×2 (09:00→17:17)
[2018-12-02] MEDS: Ciprofloxacin 500mg tab ORAL SCH ×2 (09:01→20:32)
--- NOTE | 2018-12-02 09:29 | General Progress Note ---
Assessment/Plan Problem List: (1) Colitis ICD Codes: K52.9 - Noninfective gastroenteritis and colitis, unspecified SNOMED: 40267861 (2) Gastroenteritis ICD Codes: K52.9 - Noninfective gastroenteritis and colitis, unspecified SNOMED: 78823913 (3) Common bile duct dilation ICD Codes: K83.8 - Other specified diseases of biliary tract SNOMED: 873139172 (4) Chest pain ICD Codes: R07.9 - Chest pain, unspecified SNOMED: 50528717 (5) Abdominal pain ICD Codes: R10.9 - Unspecified abdominal pain SNOMED: 81209507 (6) Common bile duct obstruction secondary to biliary stent ICD Codes: K83.1 - Obstruction of bile duct SNOMED: 52926256 Status: stable, progressing Assessment/Plan: cont current rx bacterial stool cultures pending GI eval pending regarding shelby dil PO pain rx ivf antiemetics Subjective ROS Limited/Unobtainable: No Constitutional: Reports: weakness HEENT: Reports: no symptoms Cardiovascular: Reports: no symptoms Respiratory: Reports: no symptoms Gastrointestinal/Abdominal: Reports: diarrhea Genitourinary: Reports: no symptoms Neurologic/Psychiatric: Reports: no symptoms Endocrine: Reports: no symptoms Hematologic/Lymphatic: Reports: no symptoms Allergies: Coded Allergies: SETH INHIBITORS (Verified Allergy, Unknown, 03/04/16) All Systems: reviewed and negative except above Subjective diarrhea better. still with abd pain. no fever or chills. no sob. pain controlled with percocet, Objective Last 24 Hour Vital Signs Date Time Temp Pulse Resp B/P (MAP) Pulse Ox O2 Delivery O2 Flow Rate FiO2 12/02/18 09:01 52 134/75 12/02/18 04:00 98.0 50 18 147/83 (104) 96 12/02/18 03:07 163/84 12/02/18 00:00 98.0 54 18 163/84 (110) 95 12/01/18 21:43 166/82 12/01/18 21:00 Room Air 12/01/18 20:00 99.0 56 17 166/82 (110) 96 12/01/18 19:25 97 Nasal Cannula 2.0 28 12/01/18 19:25 58 18 100 Nasal Cannula 2.0 28 52 18 97 12/01/18 16:00 98.4 58 17 148/97 (114) 97 12/01/18 11:56 98.6 60 17 159/99 (119) 99 Intake and Output 12/01/18 12/02/18 19:00 07:00 Intake Total 600 ml Balance 600 ml Intake Oral 600 ml # Voids 4 2 # Bowel Movements 3 Laboratory Tests 12/02/18 05:27: Sodium Level 145, Potassium Level 3.8, Chloride Level 111H, Carbon Dioxide Level 27, Anion Gap 7, Blood Urea Nitrogen 7, Creatinine 0.9, Estimat Glomerular Filtration Rate , Glucose Level 84, Calcium Level 8.6, Total Bilirubin 0.4, Aspartate Amino Transf (AST/SGOT) 19, Alanine Aminotransferase ( ALT/SGPT) 22, Alkaline Phosphatase 101, Total Protein 6.2L, Albumin 2.7L, Globulin 3.5, Albumin/Globulin Ratio 0.8L Height (Feet): 5 Height (Inches): 1.00 Weight (Pounds): 138 Objective General Appearance: WD/WN, alert Neck: supple Cardiovascular: normal rate Respiratory/Chest: chest wall non-tender, lungs clear, normal breath sounds Abdomen: normal bowel sounds, non tender, soft, no organomegaly Pelvis: normal external exam Edema: no edema noted Arm (L), no edema noted Arm (R), no edema noted Leg (L), no edema noted Leg (R), no edema noted Pedal (L), no edema noted Pedal (R), no edema noted Generalized Ej Hassan MD Dec 02, 2018 09:29
[2018-12-02] MEDS: Albuterol ud Inhalation HHN PRN ×2 (09:30→21:29)
[2018-12-02 12:00] VITALS: BP 150/72
[2018-12-02 16:00] VITALS: BP_SYST 130; BP_SYST 143; BP_DIAS 83; BP_DIAS 84
[2018-12-02 20:00] VITALS: BP 143/67
[2018-12-02] MEDS: D5 1/2NS w/KCl 20mEq 1,000 ML IV SCH (20:32)
--- NOTE | 2018-12-02 22:11 | General Progress Note ---
Assessment/Plan Status: stable, progressing Assessment/Plan: Assessment - N/V - improved - abd pain - improved - diarrhea, enteritis - improved - biliary ductal dilation, and s/p past metalic biliary stent - mildly elevated alk phos - h/o colon polyp - CAD - COPD - h/o Parox atrial fib - declining Alk phos - ? passed sludge Recommendations - advance po diet - follow LFT - OOB - has outpatient appt for EGD/Colon next week. Subjective Allergies: Coded Allergies: SETH INHIBITORS (Verified Allergy, Unknown, 03/04/16) Subjective Feels better no abd pain tolerating po labs noted Objective Last 24 Hour Vital Signs Date Time Temp Pulse Resp B/P (MAP) Pulse Ox O2 Delivery O2 Flow Rate FiO2 12/02/18 21:17 Room Air 12/02/18 20:00 99.5 63 18 143/67 (92) 12/02/18 19:20 97 Room Air 21 12/02/18 19:20 57 18 100 Room Air 21 55 18 97 12/02/18 16:00 97.9 102 19 130/84 (99) 98 12/02/18 16:00 98.5 88 20 143/83 (103) 92 12/02/18 12:00 98.2 58 20 150/72 (98) 95 12/02/18 09:36 58 18 100 Nasal Cannula 2.0 28 58 18 97 12/02/18 09:35 97 Nasal Cannula 2.0 28 12/02/18 09:01 52 134/75 12/02/18 09:00 Room Air 12/02/18 08:00 97.3 52 16 134/75 (94) 96 12/02/18 04:00 98.0 50 18 147/83 (104) 96 12/02/18 03:07 163/84 12/02/18 00:00 98.0 54 18 163/84 (110) 95 Intake and Output 12/01/18 12/02/18 19:00 07:00 Intake Total 600 ml Balance 600 ml Intake Oral 600 ml # Voids 4 2 # Bowel Movements 3 Laboratory Tests 12/02/18 05:27: Sodium Level 145, Potassium Level 3.8, Chloride Level 111H, Carbon Dioxide Level 27, Anion Gap 7, Blood Urea Nitrogen 7, Creatinine 0.9, Estimat Glomerular Filtration Rate , Glucose Level 84, Calcium Level 8.6, Total Bilirubin 0.4, Aspartate Amino Transf (AST/SGOT) 19, Alanine Aminotransferase ( ALT/SGPT) 22, Alkaline Phosphatase 101, Total Protein 6.2L, Albumin 2.7L, Globulin 3.5, Albumin/Globulin Ratio 0.8L Height (Feet): 5 Height (Inches): 1.00 Weight (Pounds): 138 Objective WDWN AA woman NCAT supple CTA RR abd soft ND NT no edema Dm Noble MD Dec 02, 2018 22:11
[2018-12-03] VITALS: BP 150/85
--- NOTE | 2018-12-03 00:15 | Progress Note ---
DATE: 12/02/2018 CARDIOLOGY PROGRESS NOTE SUBJECTIVE: Still with abdominal pain. Less diarrhea. No nausea or vomiting. Pain control improved. OBJECTIVE: VITAL SIGNS: Blood pressure 147/83, pulse 50, and respirations 18. LUNGS: Clear. CARDIAC: Irregularly irregular. ABDOMEN: Soft, but mildly tender in the upper quadrants. EXTREMITIES: Without edema. LABORATORY DATA: Imaging studies of the hepatobiliary tract were ordered by GI service and are pending. Sodium is 145, potassium 3.8, BUN 7, and creatinine 0.9. Albumin 2.7. IMPRESSION: 1. Mild dehydration. 2. Moderate protein-calorie malnutrition. 3. Hypertensive heart disease. 4. Paroxysmal atrial fibrillation with slow ventricular response. 5. Resolving diarrhea. 6. Resolved nausea and vomiting. 7. History of biliary stent. 8. Possible recurring bile duct obstruction. 9. Slow ventricular rate may be due to increased vagal tone related to acute GI process. PLAN: 1. Imaging studies for GI service. 2. Adjusting IV fluids to hypotonic formulation with electrolyte replacement. 3. Hold anticoagulation in anticipation of possible GI intervention. 4. Check EKG. Moe Leblanc M.D. DR: ROGER JOB#: [id number] CC:
--- NOTE | 2018-12-03 03:15 | Consultation ---
DATE OF CONSULTATION: 12/02/2018 NOTE: POOR AUDIO. GASTROENTEROLOGY CONSULTATION CHIEF COMPLAINT: Evaluation of abdominal issues. HISTORY OF PRESENT ILLNESS: The patient is a pleasant 78-year-old woman whom I have seen as an outpatient history of abdominal pain, nausea, vomiting, and diarrhea. She denies any hematochezia, hematemesis, or melena. She still has some mild degree of pain in the epigastric region that decreasing. She has had no vomiting since she has been in the hospital. She has no contacts around her who have the same symptoms. She had no recent trips and she does not have any real pets. She was seen recently as an outpatient. She had been scheduled for endoscopy and colonoscopy, treated as an outpatient. The indications for endoscopy was abdominal pain and for the colonoscopy, it was a history of colonic polyps. The patient's other medical problems as outlined below. PAST MEDICAL HISTORY: History of colonic polyps, history of hypertension, status post stent placement in 2008, history of coronary artery disease, COPD, and history of paroxysmal atrial fibrillation. PAST SURGICAL HISTORY: Status post back surgery, status post rib surgery, status post ankle surgery, status post cholecystectomy. FAMILY HISTORY: Noncontributory. SOCIAL HISTORY: The patient was a previous smoker, pack of cigarettes daily. She does not smoke at this time. She does not drink alcohol except rarely. She is a . She has 2 children. REVIEW OF SYSTEMS: Otherwise negative. PHYSICAL EXAMINATION: GENERAL: This is a pleasant woman, seen in her room. HEENT: Normocephalic and atraumatic. The oropharynx is clear. NECK: Supple. CHEST: Clear to auscultation. CARDIOVASCULAR: Regular rhythm and rate. ABDOMEN: Soft with mild epigastric tenderness to palpation without guarding or rebound. EXTREMITIES: Revealed no edema. LABORATORY DATA: Noted. CT scan was noted. ASSESSMENT: This patient presents with somewhat acute onset of nausea, vomiting, diarrhea, and abdominal pain. The picture suggested enteritis. This would be most likely consistent with viral gastroenteritis, which should be managed conservatively. The patient's symptoms have already been subsiding and in fact she has hospital. The diarrhea has improved. The pain is better. No specific treatment is necessary. However, the patient does have endoscopy and colonoscopy scheduled as an outpatient performed. The patient also has stent that was placed about 10 years ago. before the stent placement. The patient does have some mild degree of alkaline phosphatase elevation which is declining. . Eventually, a can be considered to evaluate the above findings, but it is not urgent. RECOMMENDATIONS: Per above discussion and per orders written in the chart. Thank you for asking me to participate in the care of this patient. Dm Noble M.D. DR: Catie JOB#: [id number] CC:
[2018-12-03 04:00] VITALS: BP 145/78
[2018-12-03] MEDS: D5 1/2NS w/KCl 20mEq 1,000 ML IV SCH (05:59)
[2018-12-03 06:12] LABS: BASOPHILS % (AUTO) 0.4 % (0.0-2.0); EOSINOPHILS % (AUTO) 0.9 % (0.0-3.0); HEMATOCRIT 37.4 % (37.0-47.0); HEMOGLOBIN 12.1 G/DL (12.0-16.0); LYMPHOCYTES % (AUTO) 45.3 % (20.0-45.0); MEAN CORPUSCULAR VOLUME 91 FL (80-99); MONOCYTES % (AUTO) 14.8 % (1.0-10.0); NEUTROPHILS % (AUTO) 38.6 % (45.0-75.0); PLATELET COUNT 186 K/UL (150-450); RED CELL DISTRIBUTION WIDTH 14.3 % (11.6-14.8); WHITE BLOOD COUNT 4.5 K/UL (4.8-10.8)
[2018-12-03 06:55] LABS: ALANINE AMINOTRANSFERASE 23 U/L (12-78); ALBUMIN 2.8 G/DL (3.4-5.0); ALBUMIN/GLOBULIN RATIO 0.8 (1.0-2.7); ALKALINE PHOSPHATASE 113 U/L (46-116); ANION GAP 8 mmol/L (5-15); ASPARTATE AMINO TRANSFERASE 20 U/L (15-37); BILIRUBIN,TOTAL 0.4 MG/DL (0.2-1.0); BLOOD UREA NITROGEN 6 mg/dL (7-18); CALCIUM 8.6 MG/DL (8.5-10.1); CARBON DIOXIDE 28 MMOL/L (21-32); CHLORIDE 108 MMOL/L (98-107); CREATININE 0.9 MG/DL (0.55-1.30); POTASSIUM 3.7 MMOL/L (3.5-5.1); SODIUM 144 MMOL/L (136-145)
[2018-12-03 08:00] VITALS: BP 143/89
[2018-12-03] MEDS: Ciprofloxacin 500mg tab ORAL SCH (08:29)
[2018-12-03] MEDS: oxyCODONE HCL/Acetaminophen 5/325mg ORAL PRN (08:35)
[2018-12-03] MEDS: Albuterol ud Inhalation HHN PRN (09:47)
[2018-12-03 12:00] VITALS: BP 146/81
--- NOTE | 2018-12-03 21:33 | General Progress Note ---
Assessment/Plan Status: stable, progressing Assessment/Plan: Assessment - N/V - resolved - RUQ abd pain - possibly related to metal biliary stent - diarrhea, enteritis - improved - biliary ductal dilation, and s/p past metalic biliary stent - mildly elevated alk phos - h/o colon polyp - CAD - COPD - h/o Parox atrial fib - declining Alk phos - ? passed sludge Recommendations - advance po diet - follow LFT - OOB - has outpatient appt for EGD/Colon next week. Subjective Allergies: Coded Allergies: SETH INHIBITORS (Verified Allergy, Unknown, 03/04/16) Subjective Feels better still with RUQ abd pain tolerating po labs noted Objective Last 24 Hour Vital Signs Date Time Temp Pulse Resp B/P (MAP) Pulse Ox O2 Delivery O2 Flow Rate FiO2 12/03/18 12:00 98.3 66 18 146/81 (102) 97 12/03/18 09:05 98.5 12/03/18 09:00 Room Air Room Air 12/03/18 08:29 66 143/89 12/03/18 08:00 98.5 66 18 143/89 (107) 94 12/03/18 08:00 98 Room Air 21 12/03/18 08:00 64 16 98 Room Air 21 12/03/18 04:00 98.0 53 18 145/78 (100) 12/03/18 00:00 98.7 62 18 150/85 (106) Intake and Output 12/02/18 12/03/18 19:00 07:00 Intake Total 1200 ml 100 ml Balance 1200 ml 100 ml Intake Oral 600 ml IV Total 600 ml 100 ml # Voids 3 Laboratory Tests 12/03/18 04:55: White Blood Count 4.5L, Red Blood Count 4.10L, Hemoglobin 12.1, Hematocrit 37.4 , Mean Corpuscular Volume 91, Mean Corpuscular Hemoglobin 29.5, Mean Corpuscular Hemoglobin Concent 32.4, Red Cell Distribution Width 14.3, Platelet Count 186, Mean Platelet Volume 7.5, Neutrophils (%) (Auto) 38.6L, Lymphocytes ( %) (Auto) 45.3H, Monocytes (%) (Auto) 14.8H, Eosinophils (%) (Auto) 0.9, Basophils (%) (Auto) 0.4, Sodium Level 144, Potassium Level 3.7, Chloride Level 108H, Carbon Dioxide Level 28, Anion Gap 8, Blood Urea Nitrogen 6L, Creatinine 0.9, Estimat Glomerular Filtration Rate , Glucose Level 100, Calcium Level 8.6, Magnesium Level 1.6L, Total Bilirubin 0.4, Aspartate Amino Transf (AST/SGOT) 20 , Alanine Aminotransferase (ALT/SGPT) 23, Alkaline Phosphatase 113, Pro-B-Type Natriuretic Peptide 245H, Total Protein 6.5, Albumin 2.8L, Globulin 3.7, Albumin /Globulin Ratio 0.8L Height (Feet): 5 Height (Inches): 1.00 Weight (Pounds): 138 Objective WDWN AA woman NCAT supple CTA RR abd soft ND NT no edema Dm Noble MD Dec 03, 2018 21:33
--- NOTE | 2018-12-04 00:15 | Discharge Summary ---
DATE OF ADMISSION: 11/29/2018 DATE OF DISCHARGE: 12/03/2018 ADMISSION DIAGNOSES: 1. Intractable nausea, vomiting, and diarrhea. 2. Hypertensive heart disease. 3. History of asthma and COPD. 4. History of biliary stent. DISCHARGE DIAGNOSES: 1. Intractable nausea, vomiting, and diarrhea. 2. Hypertensive heart disease. 3. History of asthma and COPD. 4. History of biliary stent. 5. Gastroenteritis. HOSPITAL COURSE: The patient is a pleasant female well known to me. She has a history of hypertensive heart disease, prior biliary stent, COPD, and congestive heart failure. She was admitted with complaints of intractable nausea and vomiting and diarrhea. She was hydrated aggressively. She had a CAT scan that showed enterocolitis with some biliary dilatation. GI consultation was obtained. The patient's liver function tests were normal and her symptoms resolved with conservative treatment. No further interventions were recommended. The patient will be discharged home with instructions to follow up as an outpatient. DISCHARGE MEDICATIONS: Please see discharge medication list for discharge medications. DIET: Regular diet. ACTIVITIES: Ad-coy. Ej Hassan M.D. DR: DEANA JOB#: [id number] CC:
--- NOTE | 2018-12-04 00:45 | Progress Note ---
DATE: 12/03/2018 CARDIOLOGY PROGRESS NOTE SUBJECTIVE: Some mild abdominal pain persists. No nausea, vomiting, or diarrhea. Tolerating diet. Off anticoagulation. Outpatient panendoscopy I have scheduled in the next week or two. PHYSICAL EXAMINATION: VITAL SIGNS: Blood pressure 143/89, pulse 66, respiratory rate 18. LUNGS: Clear. CARDIAC: Regular. Normal S1, S2. ABDOMEN: Soft. No focal tenderness. No guarding or rebound. EXTREMITIES: No edema. IMPRESSION: 1. Paroxysmal atrial fibrillation. 2. Declining alkaline phosphatase. 3. Hepatobiliary disease with biliary stent. 4. Hypertensive heart disease. 5. COPD. PLAN: 1. Okay to hold anticoagulation. 2. Pending completion of GI workup. 3. Respiratory hygiene. 4. Maintain current antihypertensive. 5. Bowel regimen in place. Moe Leblanc M.D. DR: TUSHAR JOB#: [id number] CC:
== END 2018-12-03 14:12 | disposition home health service (06) | DRG 392 ==
LOC: EMR 19:40 → 4E 22:22 → EDBEDREQ 23:17
DX: K52.9 Noninfective gastroenteritis and colitis, unspecified (principal); E44.0 Moderate protein-calorie malnutrition; I48.0 Paroxysmal atrial fibrillation; I11.9 Hypertensive heart disease without heart failure; J44.9 Chronic obstructive pulmonary disease, unspecified; K83.9 Disease of biliary tract, unspecified; Z96.89 Presence of other specified functional implants; G62.9 Polyneuropathy, unspecified; Z87.891 Personal history of nicotine dependence; Z79.01 Long term (current) use of anticoagulants; Z86.010 Personal history of colon polyps; E87.6 Hypokalemia
CPT/HCPCS: 36415; 74177; 80048; 80053; 80076; 81003; 83690; 83735; 83880; 84484; 85025; 85610; 85730; 87045; 87324; 93005; 94640; 94664; 96374; 96375; 99285; J2405; J8499

== ENCOUNTER 2019-03-28 00:06 | Emergency (ER) | payer MEDICARE, MEDICAID ==
[~2019-03-28] VITALS: Ht 165.1 cm; Wt 64.4 kg
[~2019-03-28 00:06] MED LIST changes: +ELIQUIS5 MG PO; +OXYCODONE-ACET1 EAC3 ORAL; +TIZANIDINE HCL4 MG ORAL; +VOLTAREN100 G1 TP
[2019-03-28] MEDS ORDERED: ALBUTEROL SULF8.5 GM INH (00:32)
--- NOTE | 2019-03-28 00:48 | NUR ---
ED Nurse Note: Patient walked in from home d/t lower back pain. Patient stated chronic back pain d/t history of surgery. Patient aao x 4 and ambulatory with cane. No acute distress noted.
--- NOTE | 2019-03-28 01:00 | NUR ---
ED Nurse Note: ERMD at bedside.
[2019-03-28] MEDS ORDERED: HYDROmorphone 1mg/ml Carpuject IM ONE (01:15)
--- NOTE | 2019-03-28 01:16 | NUR ---
ED Nurse Note: Per ERMD, do not administer IVP Zofran, order changed to Zofran ODT.
[2019-03-28 01:25] LABS: APPEARANCE,URINE SLIGHTLY CLOUDY; BILIRUBIN, URINE NEGATIVE (NEGATIVE); GLUCOSE, URINE (UA) NEGATIVE (NEGATIVE); KETONES,URINE NEGATIVE (NEGATIVE); LEUKOCYTE ESTERASE ,URINE 1+ (NEGATIVE); NITRITE,URINE NEGATIVE (NEGATIVE); PH,URINE 6 (4.5-8.0); PROTEIN,URINE 2+ (NEGATIVE); UROBILINOGEN,URINE 1 MG/DL (0.0-1.0)
[2019-03-28 01:26] LABS: COLOR,URINE YELLOW
[2019-03-28] MEDS ORDERED: Cephalexin 500mg cap ORAL ONE (01:45)
--- NOTE | 2019-03-28 01:51 | NUR ---
ED Nurse Note: ERMD at bedside
[2019-03-28] MEDS ORDERED: CEPHALEXIN500 MG ORAL (01:59)
--- NOTE | 2019-03-28 01:59 | Emergency Room Report ---
History of Present Illness General Chief Complaint: Lower Extremity Injury Source: Patient Present Illness HPI Is a 78-year-old female with a history of chronic back pain. She says she fell stories in 1989. She sustained an ankle fracture and back fracture. She required surgery. She is currently taking Percocet for pain. She said her lower back pain is getting worse in the last week. No fever chills but no nausea no vomiting but no radiation of the pain. No incontinence of bowel or urine. No numbness. She does have increased urinary frequency and urgency. No hematuria. Allergies: Coded Allergies: SETH INHIBITORS (Verified Allergy, Unknown, 03/04/16) Patient History Past Medical History: see triage record, old chart reviewed Past Surgical History: other Pertinent Family History: none Social History: Denies: smoking Now: No Immunizations: other Reviewed Nursing Documentation: PMH: Agreed; PSxH: Agreed Nursing Documentation-PMH Hx Cardiac Problems: Yes Hx Hypertension: Yes Hx Asthma: Yes Hx COPD: Yes Hx Cancer: No Hx Gastrointestinal Problems: Yes Hx Neurological Problems: No Review of Systems Eye: Denies: eye pain, blurred vision ENT: Denies: ear pain, nose congestion, throat swelling Respiratory: Denies: cough, shortness of breath Cardiovascular: Denies: chest pain, palpitations Gastrointestinal: Denies: abdominal pain, diarrhea, nausea, vomiting Genitourinary: Reports: dysuria, frequency, urgency Musculoskeletal: Reports: back pain; Denies: joint pain Skin: Denies: rash Neurological: Denies: headache, numbness Endocrine: Denies: increased thirst, increased urine Hematologic/Lymphatic: Denies: easy bruising All Other Systems: negative except mentioned in HPI Physical Exam Vital Signs Date Time Temp Pulse Resp B/P (MAP) Pulse Ox O2 Delivery O2 Flow Rate FiO2 03/28/19 00:22 98.1 60 16 156/79 (104) 94 Room Air Vitals with high blood pressure Sp02 EP Interpretation: reviewed, normal General Appearance: well appearing, no apparent distress, alert Head: normocephalic, atraumatic Eyes: bilateral eye PERRL, bilateral eye EOMI ENT: hearing grossly normal, normal pharynx Neck: full range of motion, supple, no meningismus Respiratory: chest non-tender, lungs clear, normal breath sounds Cardiovascular #1: regular rate, rhythm, no murmur Gastrointestinal: normal bowel sounds, non tender, no mass, no organomegaly, no bruit, non-distended Musculoskeletal: back normal - Lower lumbar tenderness. No step-off or anesthesia., normal range of motion, gait/station normal Psychiatric: mood/affect normal Medical Decision Making Diagnostic Impression: Primary Impression: Low back pain Qualified Codes: M54.5 - Low back pain Additional Impression: UTI (urinary tract infection) Qualified Codes: N30.00 - Acute cystitis without hematuria ER Course Patient presents with lower back pain. No evidence of any cauda equina syndrome , spinal epidural abscess or neoplastic process. Most likely worsened because of her UTI. Dose of antibiotics given here. Pain is well controlled now. Will discharge home. Last Vital Signs Date Time Temp Pulse Resp B/P (MAP) Pulse Ox O2 Delivery O2 Flow Rate FiO2 03/28/19 01:43 98.0 03/28/19 00:22 60 16 156/79 (104) 94 Room Air Status: improved Disposition: HOME, SELF-CARE Condition: Stable Scripts Cephalexin* (KEFLEX*) 500 Mg Capsule 500 MG ORAL TID, #21 CAP Prov: Abdon Booth MD 03/28/19 Additional Instructions: Follow-up with your doctor in 7 days. Return if symptoms worsen. Abdon Booth MD Mar 28, 2019 01:59
[2019-03-28 02:05] VITALS: BP 158/82
--- NOTE | 2019-03-28 02:05 | NUR ---
ER DISCHARGE NOTE: Patient is cleared to be discharged per ERMD, pt is aox4, on room air, with stable vital signs. pt was given dc and prescription instructions, pt was able to verbalize understanding, pt id band removed. pt stable upon discharge. pt took all belongings.
== END 2019-03-28 02:05 | disposition home or self-care (01) ==
LOC: EMR 00:56
DX: M54.5 Low back pain (principal); N30.00 Acute cystitis without hematuria; I10 Essential (primary) hypertension; J44.9 Chronic obstructive pulmonary disease, unspecified
CPT/HCPCS: 81003; 87086; 96372; 99283; J1170